=== PATIENT | female | born 1955 | race Asian ===

== ENCOUNTER 2021-04-01 09:11 | Outpatient (REF) | payer OTHER, SELFPAY ==
[2021-04-01 11:39] LABS: Estimated Average Glucose 160 mg/dL; Hemoglobin A1c % 7.2 %
[2021-04-01 12:04] LABS: Alanine Aminotransferase 23 U/L (0-31); Anion Gap 14 (12-20); Aspartate Amino Transferase 22 U/L (5-31); Blood Urea Nitrogen 22 mg/dL (9-16); Calcium 9.5 mg/dL (8.4-10.2); Carbon Dioxide 27 mmol/L (22-29); Chloride 106 mmol/L (96-108); Estimated Glomerular Filt Rate > 60; Glucose Fasting 122 mg/dL (60-99); Potassium 4.4 mmol/L (3.3-5.1); Sodium 143 mmol/L (135-145)
[2021-04-01 12:07] LABS: Creatinine Urine 89.78 mg/dL; Microalbum/Creatinine Ratio Ur 61.2 ug/mg cr
[2021-04-01 12:10] LABS: Free T4 (Free Thyroxine) 0.97 ng/dL (0.71-1.85); Thyroid Stimulating Hormone 1.17 uIU/mL (0.32-4.0); Vitamin D 25-OH Total 34.9 ng/mL (>30)
== END 2021-04-01 09:12 | disposition home or self-care (01) ==
LOC: HO.HMGCLDS 09:11
PROVIDERS: PCP Internal Medicine; Visit Provider Internal Medicine
DX: E03.9 Hypothyroidism, unspecified (principal); E11.9 Type 2 diabetes mellitus without complications; E78.5 Hyperlipidemia, unspecified; I10 Essential (primary) hypertension
CPT/HCPCS: 36415; 80048; 82043; 82306; 83036; 84439; 84443; 84450; 84460

== ENCOUNTER 2021-05-31 11:00 | Outpatient (RCR) | payer OTHER, SELFPAY ==
--- NOTE | 2021-05-06 12:47 | MHC.PT.EP ---
[facility] [place] Office [place] Office [place] Office [address] Jason Chisholm [address] [phone] F: [phone] F: [phone] F: [phone] F: [phone] Physical Therapy Plan of Care Date of Evaluation: Date of Surgery: N/A Diagnosis: pain in left shoulder Assessment: 65 y/o F referred for L shoulder pain presents with s/sx consistent with L adhesive capsulitis and ?overlapping cervical derangment. Pt complains of pain and difficulty with reaching overhead, behind the back, across the body, completing wellness instructor, sleeping, and self-care including bathing and dressing. Examination shows TTP L UT, limited L shoulder ROM in flexion, abduction, ER/IR, pain with end-range flexion, abduction, ER/IR, and hypomobility with of L GH posterior and inferior capsule. Recommend PT 2x/week for 6 weeks to address impairments, implement HEP, and optimize functional mobility. Frequency and Duration: The patient will be seen 2x/week for 6 weeks Short Term Goals: 3 weeks: 1. I with HEP 2. Pt will be able to increase L shoulder ER/IR by >8 degrees to allow for improved functional mobility Fdc Goals: 6 weeks: 1. I with HEP and self-management of sx 2. Pt will be able to complete >1 hour of wellness instructor with <3/10 pain 3. Pt will be able to complete self-care routine including bathing/dressing with <3/10 pain Treatment Plan: Modalities to reduce pain, spasms and effusion. Manual therapy to restore motion and function. Therapeutic exercise to improve strength and flexibility. Neuromuscular re-education for posture and balance. Therapeutic activities to return to functional activities of daily living. Electronically signed by: Daniela Shea PT Please sign and return to therapist. Thank you for your referral.
--- NOTE | 2021-05-31 12:41 | MHC.PT.DC ---
[facility] [place] Office [place] Office [place] Office [address] Jason Chisholm [address] [phone] F: [phone] F: [phone] F: [phone] F: [phone] Physical Therapy Discharge Report Diagnosis: pain in left shoulder Date of Surgery: N/A Date of Evaluation: 05/06/21 Date of Discharge: 05/31/21 Treatments to Date: 8 Cancellations to Date: 0 No Shows to Date: 0 Discharge Status: Achieved Goals Improved Function Independent with HEP Patient Elected to Stop Discharge Summary: Pt will be self-d/c d/t a family emergency [place] of the [place]. Today will be her last visit. Pt notes she has made improvements since starting PT in ROM and tolerance. Of note, the pt states the pain has overall decreased, but there are some days where the pain is increased. 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 She still notes trouble with dressing, specifically putting on her bra. Pt is appropriate for d/c secondary to meeting most goals including I with HEP and self-management of sx, improving ROM in flexion and ER, and improved tolerance to housework. Improved SPADI from 110/130 to 33/130. Pt notes she will continue with HEP; all exercises reviewed and d/c with updated HEP print outs. Electronically signed by: Zakia Alonzo PT Please sign and return to therapist. Thank you for your referral.
== END 2021-05-31 12:07 | disposition home or self-care (01) ==
LOC: HO.PTCHIC 11:00
PROVIDERS: PCP Internal Medicine; Visit Provider Internal Medicine
DX: M25.512 Pain in left shoulder (principal)
CPT/HCPCS: 97110; 97140; 97161

== ENCOUNTER 2021-07-10 07:49 | Outpatient (REF) | payer OTHER, SELFPAY ==
[2021-07-10 11:52] LABS: Alanine Aminotransferase 28 U/L (0-31); Anion Gap 16 (12-20); Aspartate Amino Transferase 25 U/L (5-31); Blood Urea Nitrogen 20 mg/dL (9-16); Calcium 9.6 mg/dL (8.4-10.2); Carbon Dioxide 25 mmol/L (22-29); Chloride 105 mmol/L (96-108); Cholesterol 134 mg/dL; Estimated Glomerular Filt Rate > 60; Glucose Fasting 102 mg/dL (60-99); HDL Cholesterol 34 mg/dL; LDL Cholesterol Calculated 82 mg/dl; Potassium 3.9 mmol/L (3.3-5.1); Sodium 142 mmol/L (135-145); Triglycerides 93 mg/dL
[2021-07-10 11:59] LABS: Estimated Average Glucose 160 mg/dL; Hemoglobin A1c % 7.2 %
[2021-07-10 12:12] LABS: Free T4 (Free Thyroxine) 1.13 ng/dL (0.71-1.85); Thyroid Stimulating Hormone 2.25 uIU/mL (0.32-4.0)
== END 2021-07-10 07:50 | disposition home or self-care (01) ==
LOC: HO.HMGCLDS 07:49
PROVIDERS: PCP Internal Medicine; Visit Provider Internal Medicine
DX: E03.9 Hypothyroidism, unspecified (principal); E11.65 Type 2 diabetes mellitus with hyperglycemia; E78.5 Hyperlipidemia, unspecified; I10 Essential (primary) hypertension; Z79.4 Long term (current) use of insulin
CPT/HCPCS: 36415; 80048; 80061; 83036; 84439; 84443; 84450; 84460

== ENCOUNTER 2021-10-22 10:13 | Outpatient (REF) | payer OTHER, SELFPAY ==
[2021-10-22 11:53] LABS: Estimated Average Glucose 166 mg/dL; Hemoglobin A1c % 7.4 %
[2021-10-22 12:09] LABS: Alanine Aminotransferase 20 U/L (0-31); Anion Gap 12 (12-20); Aspartate Amino Transferase 17 U/L (5-31); Blood Urea Nitrogen 17 mg/dL (9-16); Carbon Dioxide 30 mmol/L (22-29); Chloride 101 mmol/L (96-108); Cholesterol 171 mg/dL; Estimated Glomerular Filt Rate > 60; Glucose Fasting 150 mg/dL (60-99); HDL Cholesterol 47 mg/dL; LDL Cholesterol Calculated 96 mg/dl; Potassium 4.2 mmol/L (3.3-5.1); Sodium 139 mmol/L (135-145); Triglycerides 143 mg/dL
[2021-10-22 12:36] LABS: Free T4 (Free Thyroxine) 1.05 ng/dL (0.71-1.85); Thyroid Stimulating Hormone 0.94 uIU/mL (0.32-4.0); Vitamin D 25-OH Total 68.8 ng/mL (>30)
[2021-10-22 14:28] LABS: Microalbum/Creatinine Ratio Ur 142.8 ug/mg cr
== END 2021-10-22 10:14 | disposition home or self-care (01) ==
LOC: HO.HMGCLDS 10:13
PROVIDERS: PCP Internal Medicine; Visit Provider Internal Medicine
DX: E11.65 Type 2 diabetes mellitus with hyperglycemia (principal); Z79.4 Long term (current) use of insulin; I10 Essential (primary) hypertension; E78.5 Hyperlipidemia, unspecified; E03.9 Hypothyroidism, unspecified
CPT/HCPCS: 36415; 80048; 80061; 82043; 82306; 83036; 84439; 84443; 84450; 84460

== ENCOUNTER 2022-04-22 11:53 | Outpatient (REF) | payer OTHER, SELFPAY ==
[2022-04-22 14:32] LABS: Alanine Aminotransferase 24 U/L (0-31); Anion Gap 13 (12-20); Aspartate Amino Transferase 31 U/L (5-31); Blood Urea Nitrogen 22 mg/dL (9-16); Calcium 8.8 mg/dL (8.4-10.2); Carbon Dioxide 31 mmol/L (22-29); Chloride 100 mmol/L (96-108); Cholesterol 137 mg/dL; Estimated Glomerular Filt Rate > 60; Glucose Fasting 92 mg/dL (60-99); HDL Cholesterol 39 mg/dL; LDL Cholesterol Calculated 71 mg/dl; Potassium 3.4 mmol/L (3.3-5.1); Sodium 141 mmol/L (135-145); Triglycerides 139 mg/dL
[2022-04-22 14:36] LABS: Estimated Average Glucose 186 mg/dL; Hemoglobin A1c % 8.1 %
[2022-04-22 14:57] LABS: Free T4 (Free Thyroxine) 1.21 ng/dL (0.71-1.85); Vitamin D 25-OH Total 64.7 ng/mL (>30)
== END 2022-04-22 11:54 | disposition home or self-care (01) ==
LOC: HO.HMGCLDS 11:53
PROVIDERS: PCP Internal Medicine; Visit Provider Internal Medicine
DX: E03.9 Hypothyroidism, unspecified (principal); E11.65 Type 2 diabetes mellitus with hyperglycemia; E78.5 Hyperlipidemia, unspecified; I10 Essential (primary) hypertension; Z79.4 Long term (current) use of insulin
CPT/HCPCS: 36415; 80048; 80061; 82306; 83036; 84439; 84443; 84450; 84460

== ENCOUNTER 2022-04-24 09:12 | Outpatient (REF) | payer OTHER, SELFPAY ==
--- NOTE | ~2022-04-24 | XR_ITS ---
EXAMINATION: XR CHEST CLINICAL INFORMATION: Cough. History of smoking. COMPARISON: None TECHNIQUE: 2 views of the chest were obtained. FINDINGS: The lungs are well-expanded and clear. Heart size is minimally enlarged. The pulmonary vascularity is normal. There is solitary pacer electrode in the right ventricle. No gross bony abnormality seen except for mild dextroscoliosis lower dorsal spine. XR/XR chest 2V IMPRESSION: Unremarkable chest exam. No change from 07/08/2019 chest x-ray.
== END 2022-04-24 09:13 | disposition home or self-care (01) ==
LOC: HO.XRAY 09:12
PROVIDERS: PCP Internal Medicine; Visit Provider Internal Medicine
DX: R05.9 Cough, unspecified (principal)
CPT/HCPCS: 71046

== ENCOUNTER 2022-07-21 08:38 | Outpatient (REF) | payer MEDICARE, OTHER, SELFPAY ==
[2022-07-21 11:47] LABS: Alanine Aminotransferase 18 U/L (0-31); Anion Gap 16 (12-20); Aspartate Amino Transferase 18 U/L (5-31); Blood Urea Nitrogen 13 mg/dL (9-16); Calcium 9.6 mg/dL (8.4-10.2); Carbon Dioxide 28 mmol/L (22-29); Chloride 101 mmol/L (96-108); Cholesterol 158 mg/dL; Estimated Glomerular Filt Rate > 60; Glucose Fasting 134 mg/dL (60-99); HDL Cholesterol 51 mg/dL; LDL Cholesterol Calculated 94 mg/dl; Potassium 4.3 mmol/L (3.3-5.1); Sodium 141 mmol/L (135-145); Triglycerides 67 mg/dL
[2022-07-21 12:08] LABS: Estimated Average Glucose 160 mg/dL; Hemoglobin A1c % 7.2 %
[2022-07-21 12:10] LABS: Free T4 (Free Thyroxine) 0.99 ng/dL (0.71-1.85); Thyroid Stimulating Hormone 3.98 uIU/mL (0.32-4.0); Vitamin D 25-OH Total 54.9 ng/mL (>30)
[2022-07-21 12:11] LABS: Creatinine Urine 46.67 mg/dL
[2022-07-21 12:23] LABS: Microalbum/Creatinine Ratio Ur 1405.6 ug/mg cr
== END 2022-07-21 08:39 | disposition home or self-care (01) ==
LOC: HO.HMGCLDS 08:38
PROVIDERS: PCP Internal Medicine; Visit Provider Internal Medicine
DX: E03.9 Hypothyroidism, unspecified (principal); E11.65 Type 2 diabetes mellitus with hyperglycemia; E78.5 Hyperlipidemia, unspecified; I10 Essential (primary) hypertension; Z79.4 Long term (current) use of insulin
CPT/HCPCS: 36415; 80048; 80061; 82043; 82306; 83036; 84439; 84443; 84450; 84460

== ENCOUNTER 2022-10-14 09:35 | Outpatient (REF) | payer MEDICARE, OTHER, SELFPAY ==
[2022-10-14 11:58] LABS: Estimated Average Glucose 157 mg/dL; Hemoglobin A1c % 7.1 %
[2022-10-14 12:05] LABS: Creatinine Urine 40.54 mg/dL; Microalbum/Creatinine Ratio Ur 880.6 ug/mg cr
[2022-10-14 12:50] LABS: Alanine Aminotransferase 16 U/L (0-31); Anion Gap 12 (12-20); Aspartate Amino Transferase 16 U/L (5-31); Blood Urea Nitrogen 14 mg/dL (9-16); Calcium 9.2 mg/dL (8.4-10.2); Carbon Dioxide 30 mmol/L (22-29); Chloride 103 mmol/L (96-108); Cholesterol 156 mg/dL; Estimated Glomerular Filt Rate > 60; Free T4 (Free Thyroxine) 1.04 ng/dL (0.71-1.85); Glucose Fasting 90 mg/dL (60-99); HDL Cholesterol 48 mg/dL; LDL Cholesterol Calculated 90 mg/dl; Potassium 3.5 mmol/L (3.3-5.1); Sodium 141 mmol/L (135-145); Thyroid Stimulating Hormone 2.94 uIU/mL (0.32-4.0); Triglycerides 92 mg/dL; Vitamin D 25-OH Total 50.4 ng/mL (>30)
== END 2022-10-14 09:36 | disposition home or self-care (01) ==
LOC: HO.HMGCLDS 09:35
PROVIDERS: PCP Internal Medicine; Visit Provider Internal Medicine
DX: E11.65 Type 2 diabetes mellitus with hyperglycemia (principal); I10 Essential (primary) hypertension; E03.9 Hypothyroidism, unspecified; E78.5 Hyperlipidemia, unspecified; Z79.4 Long term (current) use of insulin
CPT/HCPCS: 36415; 80048; 80061; 82043; 82306; 83036; 84439; 84443; 84450; 84460

== ENCOUNTER 2023-02-27 12:06 | Outpatient (REF) | payer MEDICARE, OTHER, SELFPAY ==
[2023-02-27 14:07] LABS: Estimated Average Glucose 194 mg/dL; Hemoglobin A1c % 8.4 %
[2023-02-27 14:21] LABS: Alanine Aminotransferase 22 U/L (0-31); Albumin Level 4.3 g/dL (3.5-5.0); Alkaline Phosphatase 65 U/L (39-117); Anion Gap 11 (12-20); Aspartate Amino Transferase 16 U/L (5-31); Bilirubin Total 0.5 mg/dL (0.0-1.0); Blood Urea Nitrogen 17 mg/dL (9-16); Calcium 9.5 mg/dL (8.4-10.2); Carbon Dioxide 31 mmol/L (22-29); Chloride 105 mmol/L (96-108); Cholesterol 165 mg/dL; Estimated Glomerular Filt Rate > 60; Glucose Fasting 106 mg/dL (60-99); HDL Cholesterol 41 mg/dL; LDL Cholesterol Calculated 103 mg/dl; Potassium 4.1 mmol/L (3.3-5.1); Sodium 143 mmol/L (135-145); Total Protein 7.2 g/dL (6.5-8.0); Triglycerides 107 mg/dL
[2023-02-27 14:21] LABS: Creatinine Urine 111.44 mg/dL
[2023-02-27 14:36] LABS: Thyroid Stimulating Hormone 9.22 uIU/mL (0.32-4.0); Vitamin D 25-OH Total 63.9 ng/mL (>30)
== END 2023-02-27 12:07 | disposition home or self-care (01) ==
LOC: HO.HMGCLDS 12:06
PROVIDERS: PCP Internal Medicine; Visit Provider Internal Medicine
DX: E03.9 Hypothyroidism, unspecified (principal); E11.65 Type 2 diabetes mellitus with hyperglycemia; E78.5 Hyperlipidemia, unspecified; I10 Essential (primary) hypertension; Z79.4 Long term (current) use of insulin
CPT/HCPCS: 36415; 80053; 80061; 82043; 82306; 83036; 84443

== ENCOUNTER 2023-03-19 12:06 | Outpatient (REF) | payer MEDICARE, OTHER, SELFPAY ==
--- NOTE | ~2023-03-19 | MM_ITS ---
EXAMINATION: MM SCREENING DIGITAL BREAST TOMOSYNTHESIS, BILATERAL CLINICAL INFORMATION: Screening. Asymptomatic. The lifetime risk of breast cancer based on the Tyrer-Cuzick Model is 8%. COMPARISON: Mammography: 10/30/2018; outside exam 09/17/2016 ([facility]). TECHNIQUE: Digital breast tomosynthesis is performed in both the craniocaudal and mediolateral oblique views along with computer-aided detection (CAD). Synthesized 2D images are generated from the tomosynthesis. Additional left MLO view is provided. FINDINGS: There are scattered areas of fibroglandular density (ACR BI-RADS breast composition Category b). There are no significant masses, abnormal calcifications, or other abnormalities. There is a pacemaker generator overlying and partly obscuring the left axilla on the MLO views. No architectural abnormality or developing density. There are scattered benign isolated and grouped small round and rim calcifications. No significant changes. MM/MM tomosynthesis screening BI IMPRESSION: No mammographic evidence of malignancy. ASSESSMENT: BI-RADS 2: Benign RECOMMENDATION: Routine annual mammography screening. This patient's information was entered into a reminder system with a target due date for their next mammogram.
--- NOTE | ~2023-03-19 | MM_ITS ---
EXAMINATION: BONE DENSITOMETRY CLINICAL INDICATION: Asymptomatic menopausal state. COMPARISON: None (current study represents initial baseline exam). TECHNIQUE: Using a Teamisto DXA System (software version: 13.1) manufactured by [employer], dual-energy x-ray absorptiometry was performed of the lumbar spine and left hip. The images are of good technical quality. Summary results are attached. FINDINGS: AP SPINE L1-L4: BMD 1.336 g/cm2, Z-score 2.1, T-score 1.3, normal. LEFT FEMUR, NECK: BMD 0.822 g/cm2, Z-score -0.6, T-score -1.6, osteopenia. LEFT FEMUR, TOTAL: BMD 0.897 g/cm2, Z-score -0.2, T-score -0.9, normal. IDENTIFIED RISK FACTORS: Secondary osteoporosis, thiazide, menopause. HISTORY OF FRACTURE: None listed. MEDICATIONS: Vitamin D. MM/XR DEXA axial skeleton IMPRESSION: 1. DIAGNOSIS: Osteopenia based on the lowest T-score value of -1.6 in the femoral neck applying World Health Organization criteria. 2. 10-YEAR FRACTURE RISK PREDICTION, FRAX: Major osteoporotic fracture (clinical spine, forearm, hip or shoulder) 4.5%. Hip fracture 0.5%. 3. Treatment Recommendations: NOF guidelines recommend consideration for treatment in postmenopausal women and men age 50 and older presenting with the following: -A hip or vertebral (clinical or morphometric) fracture. -T-score less than or equal to -2.5 at the femoral neck or spine after appropriate evaluation to exclude secondary causes. -Low bone mass at the hip or spine and a 10-year fracture probability by FRAX of greater than or equal to 3% for hip fracture or greater than or equal to 20% for major osteoporotic fracture based on the [place] adapted WHO algorithm. 4. Other Recommendations: All treatment decisions require clinical judgment and consideration of individual patient factors, including patient preferences, comorbidities, previous drug use, risk factors not captured in the FRAX model (e.g. frailty, falls, vitamin D deficiency, increased bone turnover, interval significant decline in bone density) and possible under or overestimation of fracture risk by FRAX. Additional medical evaluation for secondary cause of low bone mineral density may be appropriate. FUTURE SCAN RECOMMENDATION: People with diagnosed cases of osteoporosis or at high risk for fracture should have regular bone mineral density tests. For patients eligible for Medicare, routine testing is allowed once every 2 years. The testing frequency can be increased to one year for patients who have rapidly progressing disease, those who are receiving or discontinuing medical therapy to restore bone mass, or have additional risk factors.
== END 2023-03-19 12:07 | disposition home or self-care (01) ==
LOC: HO.MAMMO 12:06
PROVIDERS: PCP Internal Medicine; Visit Provider Internal Medicine
DX: Z12.31 Encounter for screening mammogram for malignant neoplasm of breast (principal); Z13.820 Encounter for screening for osteoporosis; Z78.0 Asymptomatic menopausal state
CPT/HCPCS: 77063; 77067; 77080

== ENCOUNTER 2023-03-31 13:17 | Outpatient (REF) | payer MEDICARE, OTHER, SELFPAY ==
--- NOTE | ~2023-03-31 | XR_ITS ---
EXAMINATION: XR KNEE, RIGHT CLINICAL INFORMATION: Pain in right knee Posterior lateral knee pain COMPARISON: None available. TECHNIQUE: Four views of the right knee. FINDINGS: The bones are intact. No fracture or joint effusion. There is mild to moderate narrowing of the medial joint compartment with marginal osteophyte formation. On one of the AP oblique views, there is question of a 0.8 cm calcific density adjacent to the lateral femoral condyle. This is only seen on one view. XR/XR knee RT 4V IMPRESSION: 1. 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 2. Question of 0.8 cm calcific density adjacent to the lateral femoral condyle.
== END 2023-03-31 13:18 | disposition home or self-care (01) ==
LOC: HO.HMGCX 13:17
PROVIDERS: PCP Internal Medicine; Visit Provider Physician Assistant
DX: M25.561 Pain in right knee (principal)
CPT/HCPCS: 73564

== ENCOUNTER 2023-05-19 08:48 | Outpatient (REF) | payer MEDICARE, OTHER, SELFPAY ==
[2023-05-19 11:49] LABS: Estimated Average Glucose 160 mg/dL; Hemoglobin A1c % 7.2 %
[2023-05-19 12:24] LABS: B Type Natriuretic Peptide < 10 pg/mL (<100)
[2023-05-19 12:27] LABS: Alanine Aminotransferase 16 U/L (0-31); Anion Gap 20 (12-20); Aspartate Amino Transferase 16 U/L (5-31); Blood Urea Nitrogen 17 mg/dL (9-16); Calcium 10.1 mg/dL (8.4-10.2); Carbon Dioxide 23 mmol/L (22-29); Chloride 102 mmol/L (96-108); Cholesterol 146 mg/dL; Estimated Glomerular Filt Rate > 60; Glucose Fasting 123 mg/dL (60-99); HDL Cholesterol 39 mg/dL; LDL Cholesterol Calculated 82 mg/dl; Potassium 3.9 mmol/L (3.3-5.1); Sodium 141 mmol/L (135-145); Triglycerides 127 mg/dL
[2023-05-19 12:31] LABS: Free T4 (Free Thyroxine) 1.22 ng/dL (0.71-1.85); Thyroid Stimulating Hormone 0.16 uIU/mL (0.32-4.0)
== END 2023-05-19 08:49 | disposition home or self-care (01) ==
LOC: HO.HMGCLDS 08:48
PROVIDERS: Absent Provider Nurse Practitioner Acute Care; PCP Internal Medicine; Visit Provider Internal Medicine
DX: J45.20 Mild intermittent asthma, uncomplicated (principal); E11.65 Type 2 diabetes mellitus with hyperglycemia; Z79.4 Long term (current) use of insulin; I10 Essential (primary) hypertension; E78.5 Hyperlipidemia, unspecified; E03.9 Hypothyroidism, unspecified; I47.20 Ventricular tachycardia, unspecified; R06.02 Shortness of breath
CPT/HCPCS: 36415; 80048; 80061; 83036; 83880; 84439; 84443; 84450; 84460

== ENCOUNTER 2023-06-01 11:34 | Outpatient (AMB) | payer MEDICARE, OTHER, SELFPAY ==
[2023-06-01 11:38] VITALS: BP 132/76; PULSE 78; O2SAT 96; BMI 37.2
--- NOTE | 2023-06-01 11:38 | A.OFFPC_ITS ---
Vital Signs 06/01/23 11:38 Height 5 ft 1 in Weight 197 lb BMI 37.2 BP 132/76 Blood Pressure Location Lt brachial Position Sitting Pulse 78 Pulse Source Pulse Oximeter Pulse Oximetry (%) 96 Oxygen Delivery Method Room Air Intake Visit Reasons: 3m follow up Intake Note: Pt is here today for a 3 month f/u/ Allergies chloramphenicol Allergy (Unknown, Verified 06/01/23 12:05) rash pravastatin Allergy (Unknown, Verified 06/01/23 12:05) hives latex Allergy (Unknown, Uncoded 06/01/23 12:05) rash Medication List - Last Reconciled 06/01/23 by Dede Perkins MD albuterol sulfate 2.5 mg (3 mL) inhalation Q6H PRN albuterol sulfate 90 mcg/actuation (Ventolin HFA) 2 puffs inhalation Q6H PRN amlodipine 5 mg PO DAILY aspirin (Adult Low Dose Aspirin) 81 mg PO DAILY Basaglar KwikPen U-100 Insulin (insulin glargine) 45 units (0.45 mL) subcut QAM NS cholecalciferol (vitamin D3) 50 mcg PO DAILY empagliflozin 25 mg PO DAILY insulin aspart U-100 (Novolog FlexPen U-100 Insulin aspart) subcutaneously 3 times a day before meals ;per sliding scale coverage 90 days MDD 30 units levothyroxine 100 mcg PO QAM losartan 100 mg PO DAILY lutein 20 mg PO DAILY metformin 1,000 mg PO BID panjtzqp-hrwfbxuwu-DE 3.5-10,000-1 mg/mL-unit/mL-% 4 drps otic (ears) TID 7 days rosuvastatin 5 mg PO DAILY sotalol 120 mg PO BID spironolactone (Aldactone) 25 mg PO DAILY Symbicort 160-4.5 mcg/actuation (budesonide-formoterol) 2 puffs inhalation BID NS vitamin B complex (B Complex-Vitamin B12 tablet) 1 tab PO DAILY Tobacco use date assessed: 06/01/23 Fall risk assessment: No Falls in past year Last assessed Fall Risk: 06/01/23 Dental Screening Dental Screen Date: 06/01/23 Did you have a dental visit in the last 12 months?: Yes Did you have a dental problem in the last 6 months where you did not have access to dental care?: No Was dental information given to patient?: No HPI 3m follow up HPI Details 67-year-old lady with diabetes mellitus, hypothyroidism, hypertension, and dyslipidemia, here today for follow-up. She has been compliant with taking her medications and has been trying to stay active. Has been feeling well excep t for persistent hoarseness which has been present now for the last several months. Has tried cris tea, lozenges, which has not afforded any relief. She had recent fasting labs done which showed hemoglobin A1c within normal limits, normal electrolytes, renal function liver enzymes, lipid panel, but TSH mildly suppressed with high normal free T4. Is currently on levothyroxine 100 mcg daily in a.m. [facility] Medical History (Updated 06/01/23 @ 12:14 by Dede Perkins MD) Acquired hypothyroidism Acute exacerbation of mild persistent extrinsic asthma Asthma, mild intermittent Cough Diabetes mellitus with hyperglycemia, with long-term current use of insulin Dyslipidemia Eczema Essential hypertension Hoarseness of voice Loss of voice Otitis externa Shoulder pain, left Family History Sister Diabetes mellitus Coronary artery disease Dyslipidemia Social History Housing: House Alcohol intake: never Patient Tobacco Use Status: Never used Tobacco e-Cigarette/Vaping Use: Never Used Second Hand Smoke Exposure: No service: No Current occupational status: retired Cognitive needs: No Hearing needs: No Vision needs: Yes Questionnaire PHQ-9 Over the last 2 weeks, how often have you been bothered by any of the following problems? Depression Screening Interpretation: Negative Source: Developed by Drs. Kurt Tavares, Ben Coyne and colleagues, with an educational lili from [employer]. Thrive Questionnaire Date Thrive assessed: 03/02/23 AUDIT C Alcohol Use Questionnaire (AUDIT-C) 1. How often do you have a drink containing alcohol?: Never 3. How often do you have six or more drinks on one occasion?: Never Total Score: 0 Score Reviewed/Action Taken: Yes BRAYAN-7 AMB Questionnaire BRAYAN-7 Date BRAYAN - 7 assessed: 03/02/23 Source: Developed by Drs. Kurt Tavares, Ben Coyne and colleagues, with an educational lili from [employer]. Review of Systems Const Denies body aches, Denies fatigue, Denies headache(s), Denies malaise and Denies weakness Eyes Reports no additional complaints ENT Reports as per HPI, Denies dysphagia, Denies dizziness, Denies dry mouth, Denies ear discharge, Denies otalgia, Denies headache(s), Denies nasal congestion, Denies nasal discharge, Denies neck pain, Denies post nasal drip, Denies sinus pain, Denies sore throat and Denies throat swelling Card Reports no additional complaints, Denies dyspnea and Denies dyspnea on exertion Resp Denies chest congestion, Denies cough, Denies dyspnea and Denies dyspnea on exertion GI Reports no additional complaints and Denies dysphagia Reports no additional complaints Musc Denies arthralgias, Denies joint swelling, Denies neck pain and Reports stiffness Neuro Denies dizziness, Denies headache(s), Denies Sensory deficit (Neuro) and Denies weakness Endo Denies fatigue Micky/Lymph Reports no additional complaints Aller/Immun Denies throat swelling Physical exam (Primary Care) Vital Signs: Last Vital Signs Pulse 78 06/01/23 11:38 BP 132/76 06/01/23 11:38 Pulse Ox 96 06/01/23 11:38 Oxygen Delivery Method Room Air 06/01/23 11:38 BMI result Body Mass Index 37.2 Tobacco/Smoking Status: Tobacco use Status Tobacco use date assessed 06/01/23 06/01/23 11:43 Patient Tobacco Use Status Never used Tobacco 06/01/23 11:43 e-Cigarette/Vaping Use Never Used 06/01/23 11:43 Depression Screening Interpretation: Negative Thrive Assessment: Date of Thrive Assessment Date Thrive assessed 03/02/23 06/01/23 11:43 Const Other: Alert oriented x3, no acute distress noted ambulatory normal gait Orientation/consciousness: patient oriented x3 [facility] General nose exam: Normal external nose present and No nasal discharge present Mouth: oropharynx normal and moist mucous membranes Eyes General: appearance normal, both eyes and all related structures Neck Other: Neck is supple with no lymphadenopathy, thyroid gland nonpalpable Resp Effort & Inspection: normal respiratory effort and able to speak in complete sentences Auscultation: clear to auscultation bilaterally Cardio Other: S1-S2 present regular rate and rhythm GI Other: Obese, soft, non tender to palpation, normal bowel sounds, no mass palpated Other: Obese , normal bowel sounds, soft, nontender to palpation Skin General skin exam: no rashes or lesions noted Neuro General: patient oriented x3, gait normal, tone normal, moves all extremities, Normal light touch and pain sensation, no focal motor deficits and CN's II-XI intact bilaterally Sensory Exam: No Sensory deficit (Neuro) Extrem General: Yes full ROM, Yes no joint enlargement, Yes no pedal edema, Yes no calf tenderness and Yes normal gait Results Reviewed Results Reviewed: RUN: 06/01/23 1201 PAGE 1 [facility] [address] [place] [id number] Employment Service Specialist: Ector Murray M.D. Specimen Inquiry Name: MonicaSharmaine Barron Age/Sex: 67/F : 1955 Unit#: [id number] Attend Dr: eDde Perkins MD Re05/19/23 Status: DEP REF Location: [facility] Disch: SPEC : [id number] LASHONDA: 05/19/23 STATUS: COMP REQ : [id number] RECD: 05/19/[address]: Dede Perkins MD COMP: 05/19/23-1231 ENTERED: 05/19/23-[address]: ORDERED: Met Prof Fast, AST, ALT, Lipid Panel, Free T4, TSH Test Result Flag Reference Site Sodium 141 135-145 mmol/L Potassium 3.9 3.3-5.1 mmol/L CL 102 96-108 mmol/L CO2 23 22-29 mmol/L Gap 20 12-20 BUN 17 H 9-16 mg/dL Creat 0.76 0.5-1.4 mg/dL EGFR > 60 NOTE: For -Vincentian individuals, multiply the result by 1.210. Chronic Kidney Disease: Estimated GFR < 60 mL/min/1.73m2 Severe Kidney Disease: Estimated GFR < 15 mL/min/1.73m2 FBS 123 H 60-99 mg/dL A fasting glucose from 100-125 mg/dl is considered impaired (pre-diabetes). CA 10.1 # 8.4-10.2 mg/dL AST (GOT) 16 5-31 U/L ALT (GPT) 16 0-31 U/L Triglyceride 127 mg/dL Desirable Triglyceride: less than 150 mg/dL Borderline High Triglyceride 150-199 mg/dL High Triglyceride: 200-499 mg/dL Very High Triglyceride: greater than or equal to 5OO mg/dL Chol 146 mg/dL Desirable Cholesterol: less than 200 mg/dL Borderline High Cholesterol: 200-239 mg/dL High Cholesterol: greater than 239 mg/dL LDL Calculated 82 mg/dl Desirable LDL: less than 100 mg/dL Near Optimal/Above Optimal LDL: 110-129 mg/dL Borderline High LDL: 130-159 mg/dL High LDL: 160-189 mg/dL Very High LDL: greater than or equal to 190 mg/dL HDL 39 mg/dL Desirable HDL: greater than 40 mg/dL Note: This HDL assay may give artificially low results in patients with liver disease. Free T4 1.22 0.71-1.85 ng/dL TSH 3rd Gen. 0.16 L 0.32-4.0 uIU/mL TSH 3rd Generation ([facility]) Laboratory Tests 02/27/23 05/19/23 12:12 09:03 Estimat Average Glucose 194 160 Hemoglobin A1c % 8.4 7.2 Assessment and Plan Assessment & Plan (1) Dyslipidemia: Code(s): E78.5 - Hyperlipidemia, unspecified Plan: Reviewed recent fasting lipid profile with patient with levels within normal limits . Continue with rosuvastatin 5 mg daily , in addition to adherence to low-cholesterol diet and regular exercise, at least 30 minutes 3 to 4 times a week. Advised patient to make healthy food choices, eat more fruits, vegetables, whole grains, wild caught fish and low-fat dairy. Limit amount of meat and fried or fatty food products, as well as processed foods and fast foods. Follow-up scheduled with repeat fasting lipid panel in 3 months. (2) Essential hypertension: Code(s): I10 - Essential (primary) hypertension Plan: Blood pressure at goal of less than 130/80. Continue with current medication. Reinforced importance of following a low sodium diet, getting regular exercise, and lowering stress levels. (3) Diabetes mellitus with hyperglycemia, with long-term current use of insulin: Code(s): E11.65 - Type 2 diabetes mellitus with hyperglycemia; Z79.4 - emt intermediate (current) use of insulin Plan: Recent lab results reviewed with patient, with sugar and hemoglobin A1c stable and at goal . Continue with Basaglar 45 units in a.m., empagliflozin 25 mg daily, metformin 1000 mg twice a day. continue to check fasting blood sugar at home, maintain log and bring to next appointment for review. Reinforced diabetic diet and regular exercise with patient. Counseled regarding importance of yearly diabetes retinopathy screening. Patient advised to inspect feet daily, for any signs of injury, callus or infection. Compliance with diet and regular exercise again stressed. Blood pressure goal is less than 130/80, goal LDL is less than 100 and goal hemoglobin A1c is less than 7% follow-up appointment made in-3--months, after fasting labs done. (4) Acquired hypothyroidism: Code(s): E03.9 - Hypothyroidism, unspecified Plan: Increase levothyroxine to 88 mcg daily, recheck thyroid levels again in August 2023 (5) Hoarseness of voice: Code(s): R49.0 - Dysphonia Plan: has appointment with [facility] 08/05/2023 Orders: Orders Alanine Aminotransferase 08/19/23 E03.9 - Hypothyroidism, unspecified, E11.65 - Type 2 diabetes mellitus with hyperglycemia, E78.5 - Hyperlipidemia, unspecified, I10 - Essential (primary) hypertension, Z79.4 - emt intermediate (current) use of insulin Aspartate Amino Transferase 08/19/23 E03.9 - Hypothyroidism, unspecified, E11.65 - Type 2 diabetes mellitus with hyperglycemia, E78.5 - Hyperlipidemia, unspecified, I10 - Essential (primary) hypertension, Z79.4 - [facility] (current) use of insulin Basic Metabolic Panel Fasting 08/19/23 E03.9 - Hypothyroidism, unspecified, E11.65 - Type 2 diabetes mellitus with hyperglycemia, E78.5 - Hyperlipidemia, unspecified, I10 - Essential (primary) hypertension, Z79.4 - [facility] (current) use of insulin Hemoglobin A1c 08/19/23 E03.9 - Hypothyroidism, unspecified, E11.65 - Type 2 diabetes mellitus with hyperglycemia, E78.5 - Hyperlipidemia, unspecified, I10 - Essential (primary) hypertension, Z79.4 - emt intermediate (current) use of insulin Lipid Panel 08/19/23 E03.9 - Hypothyroidism, unspecified, E11.65 - Type 2 diabetes mellitus with hyperglycemia, E78.5 - Hyperlipidemia, unspecified, I10 - Essential (primary) hypertension, Z79.4 - [facility] (current) use of insulin Magnesium 08/19/23 E03.9 - Hypothyroidism, unspecified, E11.65 - Type 2 diabetes mellitus with hyperglycemia, E78.5 - Hyperlipidemia, unspecified, I10 - Essential (primary) hypertension, Z79.4 - [facility] (current) use of insulin Free T4 (Free Thyroxine) 08/19/23 E03.9 - Hypothyroidism, unspecified, E11.65 - Type 2 diabetes mellitus with hyperglycemia, E78.5 - Hyperlipidemia, unspecified, I10 - Essential (primary) hypertension, Z79.4 - emt intermediate (current) use of insulin Thyroid Stimulating Hormone 08/19/23 E03.9 - Hypothyroidism, unspecified, E11.65 - Type 2 diabetes mellitus with hyperglycemia, E78.5 - Hyperlipidemia, unspecified, I10 - Essential (primary) hypertension, Z79.4 - [facility] (current) use of insulin Vitamin D 25-OH Total 08/19/23 E03.9 - Hypothyroidism, unspecified, E11.65 - Type 2 diabetes mellitus with hyperglycemia, E78.5 - Hyperlipidemia, unspecified, I10 - Essential (primary) hypertension, Z79.4 - [facility] (current) use of insulin Medications: Changed From levothyroxine 100 mcg PO QAM 90 tabs 1RF To levothyroxine 88 mcg PO QAM 90 tabs 1RF Coding Level of Care Code Est Pt Level 4 (38247) Diagnoses Dyslipidemia E78.5 Essential hypertension I10 Diabetes mellitus with hyperglycemia, with long-term current use of insulin E11.65; Z79.4 Acquired hypothyroidism E03.9 Hoarseness of voice R49.0
== END 2023-06-01 14:31 | disposition home or self-care (01) ==
PROVIDERS: Visit Provider Internal Medicine
DX: I10 Essential (primary) hypertension (principal); E11.65 Type 2 diabetes mellitus with hyperglycemia; Z79.4 Long term (current) use of insulin; E03.9 Hypothyroidism, unspecified; E78.5 Hyperlipidemia, unspecified; R49.0 Dysphonia
CPT/HCPCS: 99214

== ENCOUNTER 2023-11-06 10:34 | Outpatient (REF) | payer MEDICARE, OTHER, SELFPAY ==
[2023-11-06 14:04] LABS: Estimated Average Glucose 180 mg/dL; Hemoglobin A1c % 7.9 % (<6.0)
[2023-11-06 14:25] LABS: Alanine Aminotransferase 19 U/L (0-31); Anion Gap 13 (12-20); Aspartate Amino Transferase 17 U/L (5-31); Blood Urea Nitrogen 19 mg/dL (9-16); Calcium 10.1 mg/dL (8.4-10.2); Carbon Dioxide 27 mmol/L (22-29); Chloride 106 mmol/L (96-108); Cholesterol 194 mg/dL (<200); Estimated Glomerular Filt Rate > 60; Glucose Fasting 79 mg/dL (60-99); HDL Cholesterol 47 mg/dL (>40); LDL Cholesterol Calculated 121 mg/dL (<100); Magnesium 2.2 mg/dL (1.6-2.6); Sodium 142 mmol/L (135-145); Triglycerides 134 mg/dL (<150)
[2023-11-06 14:45] LABS: Thyroid Stimulating Hormone 3.42 uIU/mL (0.32-4.0); Vitamin D 25-OH Total 70.9 ng/mL (>30)
== END 2023-11-06 10:35 | disposition home or self-care (01) ==
LOC: HO.HMGCLDS 10:34
PROVIDERS: PCP Internal Medicine; Visit Provider Internal Medicine
DX: E78.5 Hyperlipidemia, unspecified (principal); I10 Essential (primary) hypertension; E11.65 Type 2 diabetes mellitus with hyperglycemia; E03.9 Hypothyroidism, unspecified; Z79.4 Long term (current) use of insulin
CPT/HCPCS: 36415; 80048; 80061; 82306; 83036; 83735; 84439; 84443; 84450; 84460

== ENCOUNTER 2023-11-17 13:28 | Outpatient (AMB) | payer MEDICARE, OTHER, SELFPAY ==
[2023-11-17 14:17] VITALS: BP 118/70; PULSE 70; O2SAT 95; BMI 37.0
--- NOTE | 2023-11-17 14:17 | MHC.PC.OV ---
Vital Signs 11/17/23 14:17 Height 5 ft 1 in Weight 196 lb BMI 37.0 BP 118/70 Blood Pressure Location Rt brachial Position Sitting Pulse 70 Pulse Source Pulse Oximeter Pulse Oximetry (%) 95 Oxygen Delivery Method Room Air Intake Visit Reasons: 3mo. f/u labs Intake Note: Pt is here today for her 3 mo. f/u labs Allergies chloramphenicol Allergy (Unknown, Verified 11/17/23 14:43) rash pravastatin Allergy (Unknown, Verified 11/17/23 14:43) hives ciprofloxacin Adverse Reaction (Verified 11/17/23 14:43) burning sensation in ears latex Allergy (Unknown, Uncoded 11/17/23 14:43) rash Medication List - Last Reconciled 11/17/23 by Dede Perkins MD Admelog SoloStar U-100 Insulin (insulin lispro) 15 units (0.15 mL) subcut BID NS Advair HFA 115-21 mcg/actuation (fluticasone propion-salmeterol) 2 puffs inhalation Q12H NS albuterol sulfate 2.5 mg (3 mL) inhalation Q6H PRN albuterol sulfate 90 mcg/actuation (Ventolin HFA) 2 puffs inhalation Q6H PRN amlodipine 5 mg PO DAILY aspirin (Adult Low Dose Aspirin) 81 mg PO DAILY Basaglar KwikPen U-100 Insulin (insulin glargine) 45 units (0.45 mL) subcut QAM NS cholecalciferol (vitamin D3) 50 mcg PO DAILY empagliflozin 25 mg PO DAILY levothyroxine 88 mcg PO QAM losartan 100 mg PO DAILY lutein 20 mg PO DAILY metformin 1,000 mg PO BID rosuvastatin 10 mg PO DAILY sotalol 120 mg PO BID spironolactone (Aldactone) 25 mg PO DAILY vitamin B complex (B Complex-Vitamin B12 tablet) 1 tab PO DAILY Tobacco use date assessed: 11/17/23 Fall risk assessment: No Falls in past year Last assessed Fall Risk: 11/17/23 Dental Screening Dental Screen Date: 11/17/23 Did you have a dental visit in the last 12 months?: Yes Did you have a dental problem in the last 6 months where you did not have access to dental care?: Yes Was dental information given to patient?: Patient has dentist HPI 3mo. f/u labs HPI Details 68-year-old lady with diabetes mellitus, dyslipidemia, hypertension and hypothyroidism, here today for her follow-up. She has been compliant with taking medications, but not so much with diet and no regular exercise at all. Latest hemoglobin A1c came back at 7.9%, LDL cholesterol is elevated at 121 mg/dL. Thyroid levels are within normal limits. Complaining of pain stiffness in her right knee, worse with walking and going up stairs. Takes Tylenol arthritis and ibuprofen which affords only temporary relief. Has an incidental finding of an ill-defined nodule in the right apex of lung measuring 1.[address] scan of chest with contrast ordered by her ENT. Patient denies any history of smoking, no abnormal weight loss, no shortness of breath, cough or wheezing . [facility] Medical History (Updated 11/18/23 @ 03:07 by Dede Perkins MD) Nodule of apex of right lung Osteoarthritis of right knee Loss of voice Acute exacerbation of mild persistent extrinsic asthma Asthma, mild intermittent Cough Eczema Otitis externa Shoulder pain, left Diabetes mellitus with hyperglycemia, with long-term current use of insulin Essential hypertension Dyslipidemia Acquired hypothyroidism Family History Sister Diabetes mellitus Coronary artery disease Dyslipidemia Social History Housing: House Alcohol intake: never Patient Tobacco Use Status: Never used Tobacco e-Cigarette/Vaping Use: Never Used Second Hand Smoke Exposure: No service: No Current occupational status: retired Cognitive needs: No Hearing needs: No Vision needs: Yes Questionnaire PHQ-9 Over the last 2 weeks, how often have you been bothered by any of the following problems? 1. Little interest or pleasure in doing things: not at all 2. Feeling down, depressed, or hopeless: not at all 3. Trouble falling or staying asleep, or sleeping too much: several days 4. Feeling tired or having little energy: several days 5. Poor appetite or overeating: not at all 6. Feeling bad about yourself - or that you are a failure or have let yourself or your family down: not at all 7. Trouble concentrating on things, such as reading the newspaper or watching television: not at all 8. Moving or speaking so slowly that other people could have noticed. Or the opposite - being so fidgety or restless that you have been moving around a lot more than usual: not at all 9. Thoughts that you would be better off or of hurting yourself in some way: not at all Total score: 2 Depression Screening Interpretation: Negative Depression Screening Done: Yes 00676 - PHQ-9 Billing: Yes Source: Developed by Drs. Kurt Tavares, Gissel Maravilla, Ben Cheung and colleagues, with an educational lili from [employer]. Thrive Questionnaire Date Thrive assessed: 11/17/23 I am a: Patient What is your living situation today?: I have a steady place to live Within the past 12 months, did the food you bought not last and you didn't have the money to get more?: Never true Within the past 12 months, did you worry whether your food would run out before you got money to buy more?: Never true Do you have trouble paying for medicines?: No Do you have trouble getting transportation to medical appointments?: No Do you have trouble paying your heating and electricity bill?: No Do you have trouble taking care of your child, family member or friend?: No Do you have trouble with day-to-day activities such as bathing, preparing meals, shopping, managing finances, etc.?: No Are you currently unemployed and looking for a job?: No Are you interested in more education?: No THRIVE Score: 0 AUDIT C Alcohol Use Questionnaire (AUDIT-C) 1. How often do you have a drink containing alcohol?: Never Total Score: 0 BRAYAN-7 AMB Questionnaire BRAYAN-7 Date BRAYAN - 7 assessed: 11/17/23 Feeling nervous, anxious, or on edge: 0 = Not at all Not being able to stop or control worryin = Not at all Worrying too much about different things: 0 = Not at all Trouble relaxin = Not at all Being so restless that it is hard to sit still: 0 = Not at all Becoming easily annoyed or irritable: 0 = Not at all Feeling afraid as if something awful might happen: 0 = Not at all Total BRAYAN-7 score (0-4 normal; 5-9 mild; 10-14 moderate; 15-21 severe): 0 Source: Developed by Drs. Kurt Tavares, Gissel Maravilla, Ben Cheung and colleagues, with an educational lili from [employer]. BRAYAN-7 Assessment Billing BRAYAN-7 Assessment Tool: BRAYAN-7 Assessment 67104 Review of Systems Const Denies body aches, Denies fatigue, Denies headache(s), Denies malaise and Denies weakness Eyes Reports no additional complaints ENT Denies dizziness, Denies dry mouth, Denies ear discharge, Denies headache(s) and Denies nasal congestion Card Denies dyspnea Resp Denies chest congestion, Denies cough and Denies dyspnea GI Reports no additional complaints Reports no additional complaints Musc Denies joint swelling and Reports stiffness Neuro Denies dizziness, Denies headache(s), Denies Sensory deficit (Neuro) and Denies weakness Psych Reports no additional complaints Endo Denies fatigue Micky/Lymph Reports no additional complaints Aller/Immun Reports no additional complaints Physical exam (Primary Care) Vital Signs: Last Vital Signs Pulse 70 11/17/23 14:17 BP 118/70 11/17/23 14:17 Pulse Ox 95 11/17/23 14:17 Oxygen Delivery Method Room Air 11/17/23 14:17 BMI result Body Mass Index 37.0 Tobacco/Smoking Status: Tobacco use Status Tobacco use date assessed 11/17/23 11/17/23 14:28 Patient Tobacco Use Status Never used Tobacco 11/17/23 14:19 e-Cigarette/Vaping Use Never Used 11/17/23 14:19 PHQ-9: PHQ-9 Score PHQ-9: Total score 2 11/17/23 22:01 Depression Screening Interpretation: Negative Thrive Assessment: Date of Thrive Assessment Date Thrive assessed 11/17/23 11/17/23 15:09 Const Other: Alert oriented x3, no acute distress noted ambulatory normal gait General: no acute distress, alert and Physically active Orientation/consciousness: patient oriented x3 [facility] General nose exam: Normal external nose present and No nasal discharge present Mouth: oropharynx normal and moist mucous membranes Eyes General: appearance normal, both eyes and all related structures Neck Other: Neck is supple with no lymphadenopathy, thyroid gland nonpalpable Resp Effort & Inspection: normal respiratory effort and able to speak in complete sentences Auscultation: clear to auscultation bilaterally Cardio Other: S1-S2 present regular rate and rhythm GI Other: Obese, soft, non tender to palpation, normal bowel sounds, no mass palpated Other: Obese , normal bowel sounds, soft, nontender to palpation Skin General skin exam: no rashes or lesions noted Neuro General: patient oriented x3, gait normal, tone normal, moves all extremities, Normal light touch and pain sensation, no focal motor deficits and CN's II-XI intact bilaterally Sensory Exam: No Sensory deficit (Neuro) Extrem General: Yes full ROM, Yes no pedal edema and Yes normal gait Right lower extremity: knee Details: tenderness Location: of the patella Psych Appearance: grossly normal Mental Status: mental status grossly normal Speech and movement: Normal speech and movement present Affect: normal affect Attitude: cooperative Thought process: Normal thought process present Thought content: Normal thought content present Results Reviewed Results Reviewed: wale: Victoria Anderson Age/Sex: 68/F : 1955 Unit#: [id number] Attend Dr: Dede Perkins MD Re11/06/23 Status: DEP [facility]: SPEC : [id number] LASHONDA: 11/06/23 STATUS: COMP REQ : [id number] RECD: 11/06/[address]: Dede Perkins MD COMP: 11/06/23 ENTERED: 11/06/23-[address] [facility] [address]: ORDERED: Met Prof Fast, MG, AST, ALT, Lipid Panel, Vitamin D 25-OH, Free T4, TSH Test Result Flag Reference Sodium 142 135-145 mmol/L Potassium 4.0 3.3-5.1 mmol/L CL 106 96-108 mmol/L CO2 27 22-29 mmol/L Gap 13 12-20 BUN 19 H 9-16 mg/dL Creat 0.85 0.5-1.4 mg/dL EGFR > 60 NOTE: For -Israeli individuals, multiply the result by 1.210. Chronic Kidney Disease: Estimated GFR < 60 mL/min/1.73m2 Severe Kidney Disease: Estimated GFR < 15 mL/min/1.73m2 FBS 79 60-99 mg/dL CA 10.1 8.4-10.2 mg/dL Magnesium 2.2 1.6-2.6 mg/dL AST (GOT) 17 5-31 U/L ALT (GPT) 19 0-31 U/L Triglyceride 134 <150 mg/dL Desirable Triglyceride: less than 150 mg/dL Borderline High Triglyceride 150-199 mg/dL High Triglyceride: 200-499 mg/dL Very High Triglyceride: greater than or equal to 5OO mg/dL Cholesterol 194 <200 mg/dL Desirable Cholesterol: less than 200 mg/dL Borderline High Cholesterol: 200-239 mg/dL High Cholesterol: greater than 239 mg/dL LDL Calculated 121 H <100 mg/dL Desirable LDL: less than 100 mg/dL Near Optimal/Above Optimal LDL: 110-129 mg/dL Borderline High LDL: 130-159 mg/dL High LDL: 160-189 mg/dL Very High LDL: greater than or equal to 190 mg/dL HDL 47 >40 mg/dL Desirable HDL: greater than 40 mg/dL Note: This HDL assay may give artificially low results in patients with liver disease. Vit D 25-OH Tot 70.9 >30 ng/mL Health Based Reference Values* < 20 ng/mL Deficient 20-30 ng/mL Insufficient > 30 ng/mL Sufficient *Genet MCCRACKEN. N Engl J Med. 2007;357:266-280 Care must be taken in interpreting Vitamin D results from different laboratories and methodologies. Published data demonstrated that results from patients undergoing hemodialysis may show a negative bias when tested with various automated 25-OH vitamin D assays when compared to LC-MS/MS. When testing samples from patients whose predominant form of Vitamin D is Vitamin D2, such as patients receiving Vitamin D2 supplementation, results that are subtherapeutic should be confirmed with another method such as LC-MS/MS. Free T4 0.90 0.71-1.85 ng/dL TSH 3rd Gen. 3.42 0.32-4.0 uIU/mL Note: A sustained TSH level above 2.5 uIU/mL may warrant further investigation. 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 Continue present treatment, continue to check fasting blood sugar at home, maintain log and bring to next appointment for review. Reinforced diabetic diet and regular exercise with patient. Counseled regarding importance of yearly diabetes retinopathy screening. Patient advised to inspect feet daily, for any signs of injury, callus or infection. Compliance with diet and regular exercise again stressed. Blood pressure goal is less than 130/80, goal LDL is less than 100 and goal hemoglobin A1c is less than 7% follow-up appointment made in--3-months, after fasting labs done. NovoLog switched to Admelog due to insurance coverage. (2) Dyslipidemia: Code(s): E78.5 - Hyperlipidemia, unspecified Plan: Reviewed recent fasting lipid profile with patient with elevated LDL cholesterol . Increased rosuvastatin dose to 10 mg daily, in addition to adherence to low-cholesterol diet and regular exercise, at least 30 minutes 3 to 4 times a week. Advised patient to make healthy food choices, eat more fruits, vegetables, whole grains, wild caught fish and low-fat dairy. Limit amount of meat and fried or fatty food products, as well as processed foods and fast foods. Follow-up scheduled with repeat fasting lipid panel in 3 months. (3) Acquired hypothyroidism: Code(s): E03.9 - Hypothyroidism, unspecified Plan: Continue levothyroxine 88 mcg daily in a.m., repeat TSH and free T4 February 2024 prior to next office visit (4) Essential hypertension: Code(s): I10 - Essential (primary) hypertension Plan: Blood pressure at goal of less than 130/80. Continue with current medication. Reinforced importance of following a low sodium diet, getting regular exercise, and lowering stress levels. (5) Osteoarthritis of right knee: Code(s): M17.11 - Unilateral primary osteoarthritis, right knee Plan: No improvement with conservative measures, referred to orthopedics per patient request to go to (6) Nodule of apex of right lung: Code(s): R91.1 - Solitary pulmonary nodule Plan: Pulmonary consult requested (7) Asthma, mild intermittent: Code(s): J45.20 - Mild intermittent asthma, uncomplicated Plan: Symbicort changed to Advair due to insurance coverage Orders: Orders Hemoglobin A1c 02/17/24 E03.9 - Hypothyroidism, unspecified, E11.65 - Type 2 diabetes mellitus with hyperglycemia, E78.5 - Hyperlipidemia, unspecified, I10 - Essential (primary) hypertension, Z79.4 - terminal system operator (current) use of insulin Lipid Panel 02/17/24 E03.9 - Hypothyroidism, unspecified, E11.65 - Type 2 diabetes mellitus with hyperglycemia, E78.5 - Hyperlipidemia, unspecified, I10 - Essential (primary) hypertension, Z79.4 - shelter (current) use of insulin Basic Metabolic Panel Fasting 02/17/24 E03.9 - Hypothyroidism, unspecified, E11.65 - Type 2 diabetes mellitus with hyperglycemia, E78.5 - Hyperlipidemia, unspecified, I10 - Essential (primary) hypertension, Z79.4 - shelter (current) use of insulin Aspartate Amino Transferase 02/17/24 E03.9 - Hypothyroidism, unspecified, E11.65 - Type 2 diabetes mellitus with hyperglycemia, E78.5 - Hyperlipidemia, unspecified, I10 - Essential (primary) hypertension, Z79.4 - terminal system operator (current) 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 of insulin Free T4 (Free Thyroxine) 02/17/24 E03.9 - Hypothyroidism, unspecified, E11.65 - Type 2 diabetes mellitus with hyperglycemia, E78.5 - Hyperlipidemia, unspecified, I10 - Essential (primary) hypertension, Z79.4 - shelter (current) use of insulin Microalbumin, Random (w Creat) 02/17/24 E03.9 - Hypothyroidism, unspecified, E11.65 - Type 2 diabetes mellitus with hyperglycemia, E78.5 - Hyperlipidemia, unspecified, I10 - Essential (primary) hypertension, Z79.4 - terminal system operator (current) use of insulin Alanine Aminotransferase 02/17/24 E03.9 - Hypothyroidism, unspecified, E11.65 - Type 2 diabetes mellitus with hyperglycemia, E78.5 - Hyperlipidemia, unspecified, I10 - Essential (primary) hypertension, Z79.4 - shelter (current) use of insulin Thyroid Stimulating Hormone 02/17/24 E03.9 - Hypothyroidism, unspecified, E11.65 - Type 2 diabetes mellitus with hyperglycemia, E78.5 - Hyperlipidemia, unspecified, I10 - Essential (primary) hypertension, Z79.4 - shelter (current) use of insulin Referrals Orthopedics Referral M17.11 - Unilateral primary osteoarthritis, right knee Pulmonary Medicine Referral R91.1 - Solitary pulmonary nodule Medications: New Admelog SoloStar U-100 Insulin (insulin lispro) 15 units (0.15 mL) subcut BID 15 mL 5RF NS Advair HFA 115-21 mcg/actuation (fluticasone propion-salmeterol) 2 puffs inhalation Q12H 12 grams 5RF NS Changed From rosuvastatin 5 mg PO DAILY 90 tabs 3RF To rosuvastatin 10 mg PO DAILY 90 tabs 3RF Refilled amlodipine 5 mg PO DAILY 90 tabs 1RF Discontinued Symbicort 160-4.5 mcg/actuation (budesonide-formoterol) Discontinued Reason: Insurance Denied 2 puffs inhalation BID 10.2 grams 3RF NS Novolog FlexPen U-100 Insulin (insulin aspart U-100) Discontinued Reason: Insurance Denied subcutaneously 3 times a day before meals ;per sliding scale coverage 90 days 30 mL 4RF MDD 30 units NS E11.65 - Type 2 diabetes mellitus with hyperglycemia, Z79.4 - terminal system operator (current) use of insulin Coding Level of Care Code Est Pt Level 4 (60019) Diagnoses Diabetes mellitus with hyperglycemia, with long-term current use of insulin E11.65; Z79.4 Dyslipidemia E78.5 Acquired hypothyroidism E03.9 Essential hypertension I10 Osteoarthritis of right knee M17.11 Nodule of apex of right lung R91.1 Asthma, mild intermittent J45.20 Additional Codes BRAYAN-7 Assessment Billing - BRAYAN-7 Assessment Tool: BRAYAN-7 Assessment 85966 ([id number])
== END 2023-11-17 15:09 | disposition home or self-care (01) ==
PROVIDERS: PCP Internal Medicine; Visit Provider Internal Medicine
DX: E11.65 Type 2 diabetes mellitus with hyperglycemia (principal); Z79.4 Long term (current) use of insulin; E78.5 Hyperlipidemia, unspecified; E03.9 Hypothyroidism, unspecified; I10 Essential (primary) hypertension; M17.11 Unilateral primary osteoarthritis, right knee; R91.1 Solitary pulmonary nodule; J45.20 Mild intermittent asthma, uncomplicated
CPT/HCPCS: 99214

== ENCOUNTER 2023-11-26 07:28 | Outpatient (REF) | payer MEDICARE, OTHER, SELFPAY ==
--- NOTE | ~2023-11-26 | XR_ITS ---
EXAMINATION: XR KNEE, RIGHT XR KNEE AP STANDING CLINICAL INFORMATION: Pain. COMPARISON: Radiographs dated 03/31/2023. TECHNIQUE: Lateral and axial views of the right knee are submitted. AP bilateral standing view of the knees was obtained. FINDINGS: Bony mineralization is normal. There is moderate narrowing of the medial joint space compartment of the right knee, and mild narrowing is seen of the lateral and patellofemoral compartments. There is tricompartment peripheral osteophyte formation. No fracture or dislocation is seen. There is a moderate joint effusion. No foreign body is seen. There is very mild narrowing of the lateral and medial joint space compartments of the left knee, with peripheral osteophyte formation. No significant varus or valgus configuration is seen bilaterally. XR/XR knee RT 2V IMPRESSION: 1. There is tricompartment osteoarthritic change of the right knee, most pronounced of the medial joint space compartment, where degenerative change is moderate. 2. There is a moderate right knee joint effusion. 3. There is mild osteoarthritic change of the lateral and medial joint space compartments of the left knee. 4. No significant varus or valgus configuration is seen bilaterally.
--- NOTE | ~2023-11-26 | XR_ITS ---
EXAMINATION: XR KNEE, RIGHT XR KNEE AP STANDING CLINICAL INFORMATION: Pain. COMPARISON: Radiographs dated 03/31/2023. TECHNIQUE: Lateral and axial views of the right knee are submitted. AP bilateral standing view of the knees was obtained. FINDINGS: Bony mineralization is normal. There is moderate narrowing of the medial joint space compartment of the right knee, and mild narrowing is seen of the lateral and patellofemoral compartments. There is tricompartment peripheral osteophyte formation. No fracture or dislocation is seen. There is a moderate joint effusion. No foreign body is seen. There is very mild narrowing of the lateral and medial joint space compartments of the left knee, with peripheral osteophyte formation. No significant varus or valgus configuration is seen bilaterally. XR/XR knee standing BI IMPRESSION: 1. There is tricompartment osteoarthritic change of the right knee, most pronounced of the medial joint space compartment, where degenerative change is moderate. 2. There is a moderate right knee joint effusion. 3. There is mild osteoarthritic change of the lateral and medial joint space compartments of the left knee. 4. No significant varus or valgus configuration is seen bilaterally.
== END 2023-11-26 07:29 | disposition home or self-care (01) ==
LOC: HO.HOSX 07:28
PROVIDERS: Visit Provider Orthopaedic Surgery
DX: M17.11 Unilateral primary osteoarthritis, right knee (principal); E11.65 Type 2 diabetes mellitus with hyperglycemia; Z79.4 Long term (current) use of insulin
CPT/HCPCS: 20610; 73560; 73565; 99202; J0665; J1100

== ENCOUNTER 2023-11-26 12:52 | Outpatient (AMB) | payer MEDICARE, OTHER, SELFPAY ==
--- NOTE | 2023-11-26 13:01 | A.OFFVIS_ITS ---
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 Patient reports that she has had increased pain in the right knee since about March. Her pain was originally felt in the posterior aspect of the knee and has moved to the medial aspect of the knee. She has painful and limits her ROM, increased pain with all acitivity. She has used an over the counter brace with no releif. Allergies chloramphenicol Allergy (Unknown, Verified 11/26/23 13:05) rash pravastatin Allergy (Unknown, Verified 11/26/23 13:05) hives ciprofloxacin Adverse Reaction (Verified 11/26/23 13:05) burning sensation in ears latex Allergy (Unknown, Uncoded 11/26/23 13:05) rash HPI rules examiner- RT Knee OA HPI Details Victoria is a 68 year old woman who presents with complaints of right knee OA pain. She complains of pain with daily activity and motion. Her pain has been present for ~8 months now, and is now felt in the medial aspect of her knee. She feels limited in her ADLs due to her pain. [facility], [facility] Medical History (Updated 11/26/23 @ 13:08 by Tasha Puri CMA) Cataract (lens) fragments in eye following cataract surgery, bilateral Nodule of apex of right lung Osteoarthritis of right knee Loss of voice Acute exacerbation of mild persistent extrinsic asthma Asthma, mild intermittent Cough Eczema Otitis externa Shoulder pain, left Diabetes mellitus with hyperglycemia, with long-term current use of insulin Essential hypertension Dyslipidemia Acquired hypothyroidism Surgical History (Updated 11/26/23 @ 13:08 by Tasha Puri CMA) History of carpal tunnel release History of lumpectomy of left breast H/O tubal ligation H/O thyroidectomy Family History Sister Diabetes mellitus Coronary artery disease Dyslipidemia Social History Housing: House Alcohol intake: never Patient Tobacco Use Status: Never used Tobacco e-Cigarette/Vaping Use: Never Used Second Hand Smoke Exposure: No service: No Current occupational status: retired Cognitive needs: No Hearing needs: No Vision needs: Yes Review of Systems Const All systems reviewed & are unremarkable except as noted in HPI and below Physical Exam Vital Signs: BMI result Body Mass Index 37.0 Const General: no acute distress, alert and awake Orientation/consciousness: patient oriented x3 HEENT Head: Yes normocephalic and Yes atraumatic Eyes EOM: EOMs intact bilaterally Resp Effort & Inspection: normal respiratory effort and able to speak in complete sentences Cardio Jugular venous distension: no JVD Skin General skin exam: turgor normal Rashes: no rashes Neuro General: patient oriented x3 Psych Appearance: grossly normal Affect: normal affect Attitude: cooperative Office Procedures Joint Injection/Drain Joint Injection/Drain Details: Injected 1 mL of Decadron and 3 mL 1% lidocaine and 3 mL of 0.25% Marcaine. Site was prepped using aseptic technique. Patient tolerated the procedure well. Primary Site: right knee Approach Used: anterolateral Coding 97472 - Large joint Procedure code (CPT) selection complete Results Reviewed Results Reviewed: I personally reviewed relevant radiographs. 1. There is tricompartment osteoarthritic change of the right knee, most pronounced of the medial joint space compartment, where degenerative change is moderate. 2. There is a moderate right knee joint effusion. 3. There is mild osteoarthritic change of the lateral and medial joint space compartments of the left knee. 4. No significant varus or valgus configuration is seen bilaterally. Assessment & Plan Assessment & Plan (1) Osteoarthritis of right knee: Code(s): M17.11 - Unilateral primary osteoarthritis, right knee Plan: Right knee OA. Pain tolerable but bothers her. Pain at night. Injected her right knee today and she can follow up 3 mo. (2) Diabetes mellitus with hyperglycemia, with long-term current use of insulin: Code(s): E11.65 - Type 2 diabetes mellitus with hyperglycemia; Z79.4 - longterm (current) use of insulin Plan: Explained the hyperglycemic effects of steroids. Plan Prepared for Mohit Burleson MD by Bryan Yousif, medical instructor, on 11/26/23 at 1:03 PM, EST. Orders: Orders XR knee standing BI 11/26/23 M25.569 - Pain in unspecified knee XR knee RT 2V 11/26/23 M25.569 - Pain in unspecified knee Coding Level of Care Code New Pt Level 4 (74354) Diagnoses Osteoarthritis of right knee M17.11 Diabetes mellitus with hyperglycemia, with long-term current use of insulin E11.65; Z79.4 CPT Codes Coding - 13747 Large joint: 08713 - Large joint ([id number])
[2023-11-26 13:08] VITALS: BMI 37.0
== END 2023-11-26 14:08 | disposition home or self-care (01) ==
PROVIDERS: PCP Internal Medicine; Visit Provider Orthopaedic Surgery
DX: M17.11 Unilateral primary osteoarthritis, right knee (principal); E11.65 Type 2 diabetes mellitus with hyperglycemia; Z79.4 Long term (current) use of insulin
CPT/HCPCS: 20610; 99204

== ENCOUNTER 2023-12-24 13:08 | Outpatient (REF) | payer MEDICARE, OTHER, SELFPAY ==
[2023-12-24 14:17] LABS: MANUAL DIFF FLAG NO
[2023-12-24 14:27] LABS: Basophils Absolute Auto 0.1 X10*3/uL (0.0-0.2); Basophils Percent Auto 1.1 % (0-2); Eosinophils Absolute Auto 0.2 X10*3/uL (0.0-0.4); Eosinophils Percent Auto 3.3 % (0-4); Hematocrit 44.2 % (37.0-47.0); Imm Gran Abs Auto 0.02 X10*3/uL (0.00-0.03); Imm Gran Pct Auto 0.3 % (0.0-0.4); Lymphocytes Absolute Auto 2.1 X10*3/uL (1.2-4.9); Mean Corpuscular HGB Conc 33.9 g/dl (31.0-35.0); Mean Corpuscular Hemoglobin 31.6 pg (27.0-33.0); Mean Corpuscular Volume 93.2 fL (80.0-98.0); Monocytes Absolute Auto 0.4 X10*3/uL (0.1-1.2); Monocytes Percent Auto 6.5 % (2-11); Neutrophils Absolute Auto 3.3 x10*3/uL (2.0-8.3); Neutrophils Percent Auto 53.8 % (45-73); Platelet Count 245 X10*3/uL (160-400); Red Blood Count 4.74 X10*6/uL (4.20-5.50); Red Cell Distribution Width 12.5 % (11.0-16.0); White Blood Count 6.1 X10*3/uL (4.8-10.8)
[2023-12-26 10:49] LABS: Class Alternaria alternata 0; Class Aspergillus fumigatus 0; Class Bermuda Grass 0; Class Birch 0; Class Cat Dander 0; Class Cladosporium herbarum 0; Class Cockroach 0; Class Common Ragweed 0; Class Cottonwood 0; Class Derm. pterony 0; Class Dermatophagoides farinae 0; Class Dog Dander 0; Class Elm 0; Class Maple Box Elder 0; Class Mountain Cedar 0; Class Mouse Urine Protein 0; Class Mugwort 0; Class Oak 0; Class Penicillium crysogenum 0; Class Rough Pigweed 0; Class Sheep Sorrel 0; Class Sycamore 0; Class Timothy Grass 0; Class Walnut Tree 0; Class White Ash 0; Class White Mulberry 0; D001 IgE D pteronyssinus <0.10 kU/L; D002 - IgE D farinae <0.10 kU/L; E001 - IgE Cat Dander <0.10 kU/L; E005 - IgE Dog Dander <0.10 kU/L; E072-IgE Mouse Urine <0.10 kU/L; G002 IgE Bermuda Grass <0.10 kU/L; G006 - IgE Timothy Grass <0.10 kU/L; I006-IgE Cockroach, German <0.10 kU/L; Immunoglobulin E 44 kU/L (<OR=114); M001 IgE Penicillium chrysogen <0.10 kU/L; M002 - IgE Cladosporium herbar <0.10 kU/L; M003 - IgE Aspergillus fumigat <0.10 kU/L; M006 - IgE Alternaria alternat <0.10 kU/L; T001 IgE Maple/Box Elder <0.10 kU/L; T003 IgE Common Silver Birch <0.10 kU/L; T006 - IgE Cedar, Mountain <0.10 kU/L; T007 - IgE Oak, White <0.10 kU/L; T008 IgE Elm, American <0.10 kU/L; T010 - IgE Walnut <0.10 kU/L; T011 - IgE Maple Leaf Sycamore <0.10 kU/L; T014 - IgE Cottonwood <0.10 kU/L; T015 - IgE Ash, White <0.10 kU/L; T070 - IgE White Mulberry <0.10 kU/L; W001 - IgE Ragweed, Short <0.10 kU/L; W006 - IgE Mugwort <0.10 kU/L; W014 IgE Pigweed, Common <0.10 kU/L; W018 IgE Sheep Sorrel <0.10 kU/L
== END 2023-12-24 13:09 | disposition home or self-care (01) ==
LOC: HO.LAB 13:08
PROVIDERS: PCP Internal Medicine; Referring Provider Internal Medicine; Visit Provider Internal Medicine Pulmonary Disease
DX: R91.1 Solitary pulmonary nodule (principal); J45.909 Unspecified asthma, uncomplicated; Z91.09 Other allergy status, other than to drugs and biological substances; Z79.4 Long term (current) use of insulin; Z79.899 Other long term (current) drug therapy
CPT/HCPCS: 36415; 82785; 85025; 86003; 99202

== ENCOUNTER 2023-12-24 13:08 | Outpatient (AMB) | payer MEDICARE, OTHER, SELFPAY ==
--- NOTE | 2023-12-24 13:15 | A.OFFVIS_ITS ---
Intake Vital Signs 12/24/23 13:17 Height 5 ft 5 in Weight 196 lb BMI 32.6 BP 136/70 Blood Pressure Location Lt brachial Position Sitting Pulse 74 Pulse Source Pulse Oximeter Pulse Oximetry (%) 98 Oxygen Delivery Method Room Air Intake Visit Reasons: pulm nodule Certified Nutritionist Required: No [employer] Counselor: [employer] Travel [employer] Counselor offered & declined Accompanied by: Self / Same As Patient Allergies chloramphenicol Allergy (Unknown, Verified 12/24/23 13:21) rash pravastatin Allergy (Unknown, Verified 12/24/23 13:21) hives ciprofloxacin Adverse Reaction (Verified 12/24/23 13:21) burning sensation in ears latex Allergy (Unknown, Uncoded 12/24/23 13:21) rash Medication List - Last Reconciled 12/24/23 by Trini Willson LPN Admelog SoloStar U-100 Insulin (insulin lispro) 15 units (0.15 mL) subcut BID NS Advair HFA 115-21 mcg/actuation (fluticasone propion-salmeterol) 2 puffs inhalation Q12H NS albuterol sulfate 2.5 mg (3 mL) inhalation Q6H PRN albuterol sulfate 90 mcg/actuation (Ventolin HFA) 2 puffs inhalation Q6H PRN amlodipine 5 mg PO DAILY aspirin (Adult Low Dose Aspirin) 81 mg PO DAILY Marnie Lau U-100 Insulin (insulin glargine) 45 units (0.45 mL) subcut QAM NS cholecalciferol (vitamin D3) 50 mcg PO DAILY Dulera 100-5 mcg/actuation (mometasone-formoterol) 2 puffs inhalation Q12H NS empagliflozin 25 mg PO DAILY [Glucosamine PO] levothyroxine 88 mcg PO QAM losartan 100 mg PO DAILY lutein 20 mg PO DAILY magnesium citrate,mag oxide mg PO metformin 1,000 mg PO BID omeprazole 20 mg PO DAILY rosuvastatin 10 mg PO DAILY sotalol 120 mg PO BID spironolactone (Aldactone) 25 mg PO DAILY [Tumeric PO] vitamin B complex (B Complex-Vitamin B12 tablet) 1 tab PO DAILY HPI pulm nodule HPI Details 68-year-old lady, nonsmoker, with no fam jose history of lung disease, underlying asthma referred for evaluation of incidental finding of 1.1 cm right apical nodule. Patient also has underlying asthma now controlled on Symbicort and albuterol MDI/nebs. She does complain of environmental allergies. 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 She does not have pets. [facility] Medical History (Updated 12/24/23 @ 13:48 by Young Meza MD) Cataract (lens) fragments in eye following cataract surgery, bilateral Nodule of apex of right lung Osteoarthritis of right knee Loss of voice Acute exacerbation of mild persistent extrinsic asthma Asthma, mild intermittent Cough Eczema Otitis externa Shoulder pain, left Diabetes mellitus with hyperglycemia, with long-term current use of insulin Essential hypertension Dyslipidemia Acquired hypothyroidism Surgical History (Updated 11/26/23 @ 13:08 by Tasha Puri [facility]) History of carpal tunnel release History of lumpectomy of left breast H/O tubal ligation H/O thyroidectomy Family History Sister Diabetes mellitus Coronary artery disease Dyslipidemia Social History (Updated 12/24/23 @ 13:26 by Trini Willson LPN) Housing: House Alcohol intake: never Patient Tobacco Use Status: Never used Tobacco e-Cigarette/Vaping Use: Never Used Second Hand Smoke Exposure: No service: No Current occupational status: retired Cognitive needs: No Hearing needs: No Vision needs: Yes Review of Systems Const Denies daytime sleepiness, Denies excessive sweating, Denies fatigue, Denies fever(s), Denies lethargy, Denies malaise, Denies night sweats, Denies snoring and Denies weight loss Eyes Denies blurry vision and Denies itchy eyes ENT Denies nasal congestion, Denies post nasal drip, Denies sinus pain, Denies sinus pressure and Denies other ( Thrush) Card Denies chest pain, Denies pedal edema, Denies dyspnea, Denies orthopnea and Denies paroxysmal nocturnal dyspnea Resp Denies cough, Denies hemoptysis, Denies excessive phlegm production, Denies dyspnea, Denies snoring and Denies wheezing GI Denies abdominal pain and Denies heartburn Musc Denies myalgias, Denies arthralgias and Denies joint swelling Skin/Breast Denies rash Neuro Denies memory loss and Denies seizure-like activity Psych Denies abnormal sleep pattern, Denies anxiety and Denies memory loss Endo Denies excessive sweating, Denies fatigue and Denies heat intolerance Micky/Lymph Denies easy bruising Aller/Immun Denies itchy eyes, Denies seasonal rhinorrhea and Denies wheezing Physical Exam Vital Signs: Last Vital Signs Pulse 74 12/24/23 13:17 BP 136/70 12/24/23 13:17 Pulse Ox 98 12/24/23 13:17 Oxygen Delivery Method Room Air 12/24/23 13:17 BMI result Body Mass Index 32.6 Const General: no acute distress and alert Nutritional Appearance: not obese Orientation/consciousness: Other orientation findings ( oriented) HEENT Head: Yes atraumatic Eyes General: appearance normal, both eyes and all related structures Sclerae: sclerae normal EOM: EOMs intact bilaterally Neck Neck: Yes supple Lymphatic: no lymphadenopathy noted Resp Effort & Inspection: normal respiratory effort and no use of accessory muscles Auscultation: clear to auscultation bilaterally Cardio Rate: regular rate Rhythm: regular rhythm Heart sounds: no gallops, no murmurs and no rubs Skin General skin exam: other ( warm) Extrem General: No clubbing, No cyanosis and No edema Assessment & Plan Assessment & Plan (1) Nodule of apex of right lung: Code(s): R91.1 - Solitary pulmonary nodule Plan: Will repeat CT scan in 3 months to assess for changes. (2) Environmental allergies: Code(s): Z91.09 - Other allergy status, other than to drugs and biological substances Plan: Will obtain CBC, IgE level, and RAST panel for further evaluation. (3) Asthma: Code(s): J45.909 - Unspecified asthma, uncomplicated Plan: Will obtain full PFT. Continue current regimen of Dulera and albuterol MDI. Orders: Orders Complete Blood Count Auto Diff Today Z91.09 - Other allergy status, other than to drugs and biological substances PFT pulmonary function test Today Z91.09 - Other allergy status, other than to drugs and biological substances Resp Allergy Profile Region I Today Z91.09 - Other allergy status, other than to drugs and biological substances CT chest wo IV con Today R91.1 - Solitary pulmonary nodule Coding Level of Care Code New Pt Level 4 (32833) Diagnoses Nodule of apex of right lung R91.1 Environmental allergies Z91.09 Asthma J45.909
[2023-12-24 13:17] VITALS: BP 136/70; PULSE 74; O2SAT 98; BMI 32.6
== END 2023-12-24 13:41 | disposition home or self-care (01) ==
PROVIDERS: PCP Internal Medicine; Referring Provider Internal Medicine; Visit Provider Internal Medicine Pulmonary Disease
DX: R91.1 Solitary pulmonary nodule (principal); Z91.09 Other allergy status, other than to drugs and biological substances; J45.909 Unspecified asthma, uncomplicated
CPT/HCPCS: 99204

== ENCOUNTER 2024-03-01 09:03 | Outpatient (REF) | payer MEDICARE, OTHER, SELFPAY ==
[2024-03-01 11:20] LABS: Estimated Average Glucose 163 mg/dL; Hemoglobin A1c % 7.3 % (<6.0)
[2024-03-01 11:29] LABS: Alanine Aminotransferase 16 U/L (0-31); Anion Gap 16 (12-20); Aspartate Amino Transferase 14 U/L (5-31); Blood Urea Nitrogen 20 mg/dL (9-16); Calcium 10.1 mg/dL (8.4-10.2); Carbon Dioxide 25 mmol/L (22-29); Chloride 105 mmol/L (96-108); Cholesterol 149 mg/dL (<200); Estimated Glomerular Filt Rate > 60; Glucose Fasting 145 mg/dL (60-99); HDL Cholesterol 46 mg/dL (>40); LDL Cholesterol Calculated 88 mg/dL (<100); Potassium 4.4 mmol/L (3.3-5.1); Sodium 142 mmol/L (135-145); Triglycerides 78 mg/dL (<150)
[2024-03-01 11:38] LABS: Microalbum/Creatinine Ratio Ur 84.8 ug/mg cr (<30)
== END 2024-03-01 09:04 | disposition home or self-care (01) ==
LOC: HO.HMGCLDS 09:03
PROVIDERS: PCP Internal Medicine; Visit Provider Internal Medicine
DX: E11.65 Type 2 diabetes mellitus with hyperglycemia (principal); Z79.4 Long term (current) use of insulin; I10 Essential (primary) hypertension; E78.5 Hyperlipidemia, unspecified; E03.9 Hypothyroidism, unspecified
CPT/HCPCS: 36415; 80048; 80061; 82043; 82570; 83036; 84439; 84443; 84450; 84460

== ENCOUNTER 2024-03-07 11:36 | Outpatient (AMB) | payer MEDICARE, OTHER, SELFPAY ==
--- NOTE | 2024-03-07 11:39 | A.OFFPC_ITS ---
Vital Signs 03/07/24 11:40 Height 5 ft 5 in Weight 196 lb BMI 32.6 BP 124/74 Blood Pressure Location Lt brachial Position Sitting Pulse 71 Pulse Source Pulse Oximeter Pulse Oximetry (%) 96 Oxygen Delivery Method Room Air Intake Visit Reasons: 3mo. f/u labs Intake Note: Pt is here today for her 3 mo. f/u Allergies chloramphenicol Allergy (Unknown, Verified 03/14/24 15:59) rash pravastatin Allergy (Unknown, Verified 03/14/24 15:59) hives ciprofloxacin Adverse Reaction (Verified 03/14/24 15:59) burning sensation in ears latex Allergy (Unknown, Uncoded 03/14/24 15:59) rash Medication List - Last Reconciled 03/14/24 by Dede Perkins MD Admelog SoloStar U-100 Insulin (insulin lispro) 15 units (0.15 mL) subcut BID NS Advair HFA 115-21 mcg/actuation (fluticasone propion-salmeterol) 2 puffs inhalation Q12H NS albuterol sulfate 2.5 mg (3 mL) inhalation Q6H PRN albuterol sulfate 90 mcg/actuation (Ventolin HFA) 2 puffs inhalation Q6H PRN amlodipine 5 mg PO DAILY aspirin (Adult Low Dose Aspirin) 81 mg PO DAILY Carolagljayna Lau U-100 Insulin (insulin glargine) 45 units (0.45 mL) subcut QAM NS cholecalciferol (vitamin D3) 50 mcg PO DAILY Dulera 100-5 mcg/actuation (mometasone-formoterol) 2 puffs inhalation Q12H NS empagliflozin 25 mg PO DAILY [Glucosamine PO] levothyroxine 88 mcg PO QAM losartan 100 mg PO DAILY lutein 20 mg PO DAILY magnesium citrate,mag oxide mg PO metformin 1,000 mg PO BID omeprazole 20 mg PO DAILY rosuvastatin 10 mg PO DAILY sotalol 120 mg PO BID spironolactone (Aldactone) 25 mg PO DAILY [Tumeric PO] vitamin B complex (B Complex-Vitamin B12 tablet) 1 tab PO DAILY Tobacco use date assessed: 03/07/24 Fall risk assessment: No Falls in past year Last assessed Fall Risk: 03/07/24 Dental Screening Dental Screen Date: 03/07/24 Did you have a dental visit in the last 12 months?: Yes Did you have a dental problem in the last 6 months where you did not have access to dental care?: No Was dental information given to patient?: Patient has dentist HPI 3mo. f/u labs HPI Details 68 year-old lady with diabetes mellitus, dyslipidemia, hypertension and hypothyroidism, here today for her follow-up. Latest fasting labs showed hemoglobin A1c at 7.3%, with normal lipids, thyroid levels. She has been feeling well with no present time, takes her medicines as directed. However she states she has not been very compliant with her diet. [facility] Medical History (Updated 03/14/24 @ 16:07 by Dede Perkins MD) Cataract (lens) fragments in eye following cataract surgery, bilateral Nodule of apex of right lung Osteoarthritis of right knee Loss of voice Acute exacerbation of mild persistent extrinsic asthma Asthma, mild intermittent Cough Eczema Otitis externa Shoulder pain, left Diabetes mellitus with hyperglycemia, with long-term current use of insulin Essential hypertension Dyslipidemia Acquired hypothyroidism Surgical History History of carpal tunnel release History of lumpectomy of left breast H/O tubal ligation H/O thyroidectomy Family History Sister Diabetes mellitus Coronary artery disease Dyslipidemia Social History Housing: House Alcohol intake: never Patient Tobacco Use Status: Never used Tobacco e-Cigarette/Vaping Use: Never Used Second Hand Smoke Exposure: No service: No Current occupational status: retired Cognitive needs: No Hearing needs: No Vision needs: Yes Questionnaire PHQ-9 Over the last 2 weeks, how often have you been bothered by any of the following problems? Depression Screening Interpretation: Negative Depression Screening Done: Yes Source: Developed by Drs. Kurt Tavares, Gissel Maravilla, Ben Cheung and colleagues, with an educational lili from [employer]. Thrive Questionnaire Date Thrive assessed: 11/17/23 BRAYAN-7 AMB Questionnaire BRAYAN-7 Date BRAYAN - 7 assessed: 11/17/23 Source: Developed by Drs. Kurt Tavares, Gissel Maravilla, Ben Cheung and colleagues, with an educational lili from [employer]. Review of Systems Const Denies body aches, Denies fatigue, Denies headache(s), Denies malaise and Denies weakness Eyes Reports no additional complaints ENT Denies dizziness and Denies headache(s) Card Denies dyspnea Resp Denies chest congestion, Denies cough and Denies dyspnea GI Reports no additional complaints Reports no additional complaints Musc Denies joint swelling and Reports stiffness Neuro Denies dizziness, Denies headache(s), Denies Sensory deficit (Neuro) and Denies weakness Psych Reports no additional complaints Endo Denies fatigue Micky/Lymph Reports no additional complaints Aller/Immun Reports no additional complaints Physical exam (Primary Care) Vital Signs: Last Vital Signs Pulse 71 03/07/24 11:40 BP 124/74 03/07/24 11:40 Pulse Ox 96 03/07/24 11:40 Oxygen Delivery Method Room Air 03/07/24 11:40 BMI result Body Mass Index 32.6 Tobacco/Smoking Status: Tobacco use Status Tobacco use date assessed 03/07/24 03/07/24 11:46 Patient Tobacco Use Status Never used Tobacco 03/07/24 11:46 e-Cigarette/Vaping Use Never Used 03/07/24 11:46 Depression Screening Interpretation: Negative Thrive Assessment: Date of Thrive Assessment Date Thrive assessed 11/17/23 03/07/24 11:46 Const Other: Alert oriented x3, no acute distress noted ambulatory normal gait [facility] General nose exam: Normal external nose present and No nasal discharge present Mouth: oropharynx normal and moist mucous membranes Eyes General: appearance normal, both eyes and all related structures Neck Other: Neck is supple with no lymphadenopathy, thyroid gland nonpalpable Resp Effort & Inspection: normal respiratory effort and able to speak in complete sentences Auscultation: clear to auscultation bilaterally Cardio Other: S1-S2 present regular rate and rhythm GI Other: Obese, soft, non tender to palpation, normal bowel sounds, no mass palpated Other: Obese , normal bowel sounds, soft, nontender to palpation Skin General skin exam: no rashes or lesions noted Neuro General: gait normal, tone normal, moves all extremities, Normal light touch and pain sensation, no focal motor deficits and CN's II-XI intact bilaterally Sensory Exam: No Sensory deficit (Neuro) Extrem General: Yes full ROM, Yes no pedal edema and Yes normal gait Psych Appearance: grossly normal Mental Status: mental status grossly normal Speech and movement: Normal speech and movement present Affect: normal affect Attitude: cooperative Thought process: Normal thought process present Thought content: Normal thought content present Results Reviewed Results Reviewed: Laboratory Tests 03/01/24 09:10 Estimat Average Glucose 163 Hemoglobin A1c % 7.3 H Name: Victoria Anderson Age/Sex: 68/F : 1955 Unit#: [id number] Attend Dr: Dede Perkins MD Re03/01/24 Status: DEP [facility] Disch: SPEC : [id number] LASHONDA: 03/01/24 STATUS: COMP REQ : [id number] RECD: 03/01/24-[address]: Dede Perkins MD COMP: 03/01/24 ENTERED: 03/01/24-[address]: ORDERED: Met Prof Fast, AST, ALT, Lipid Panel, Free T4, TSH Test Result Flag Reference Sodium 142 135-145 mmol/L Potassium 4.4 3.3-5.1 mmol/L CL 105 96-108 mmol/L CO2 25 22-29 mmol/L Gap 16 12-20 BUN 20 H 9-16 mg/dL Creat 0.77 0.5-1.4 mg/dL EGFR > 60 NOTE: For -Cypriot individuals, multiply the result by 1.210. Chronic Kidney Disease: Estimated GFR < 60 mL/min/1.73m2 Severe Kidney Disease: Estimated GFR < 15 mL/min/1.73m2 FBS 145 H 60-99 mg/dL A fasting glucose of 126 mg/dl or greater on more than one occasion is considered diagnostic of diabetes. CA 10.1 8.4-10.2 mg/dL AST (GOT) 14 5-31 U/L ALT (GPT) 16 0-31 U/L Triglyceride 78 <150 mg/dL Desirable Triglyceride: less than 150 mg/dL Borderline High Triglyceride 150-199 mg/dL High Triglyceride: 200-499 mg/dL Very High Triglyceride: greater than or equal to 5OO mg/dL Cholesterol 149 <200 mg/dL Desirable Cholesterol: less than 200 mg/dL Borderline High Cholesterol: 200-239 mg/dL High Cholesterol: greater than 239 mg/dL LDL Calculated 88 <100 mg/dL Desirable LDL: less than 100 mg/dL Near Optimal/Above Optimal LDL: 110-129 mg/dL Borderline High LDL: 130-159 mg/dL High LDL: 160-189 mg/dL Very High LDL: greater than or equal to 190 mg/dL HDL 46 >40 mg/dL Desirable HDL: greater than 40 mg/dL Note: This HDL assay may give artificially low results in patients with liver disease. Free T4 1.00 0.71-1.85 ng/dL TSH 3rd Gen. 2.20 0.32-4.0 uIU/mL TSH 3rd Generation ([facility]) Assessment and Plan Assessment & Plan (1) Diabetes mellitus with hyperglycemia, with long-term current use of insulin: Code(s): E11.65 - Type 2 diabetes mellitus with hyperglycemia; Z79.4 - USP (current) use of insulin Qualifiers: Diabetes mellitus type: type 2 Qualified Code(s): E11.65 - Type 2 diabetes mellitus with hyperglycemia; Z79.4 - USP (current) use of insulin Plan: Continue with Admelog 15 units twice a day, Basaglar 45 units in the morning metformin 1000 mg twice a day. Reinforced importance of following a diabetic diet and getting regular exercise. [place], will see her back for follow-up after fasting labs done in 11/2024 (2) Essential hypertension: Code(s): I10 - Essential (primary) hypertension Plan: Blood pressure at goal of less than 130/80. Continue with current medication. Reinforced importance of following a low sodium diet, getting regular exercise, and lowering stress levels. (3) Dyslipidemia: Code(s): E78.5 - Hyperlipidemia, unspecified Plan: Change rosuvastatin dosing to 10 mg taken every other day, recheck lipids again in November 2024 (4) Acquired hypothyroidism: Code(s): E03.9 - Hypothyroidism, unspecified Plan: Thyroid levels are within normal limits, continue with current dose of levothyroxine at 88 mcg daily in a.m. Orders: Orders Hemoglobin A1c 11/19/24 E03.9 - Hypothyroidism, unspecified, E11.65 - Type 2 diabetes mellitus with hyperglycemia, E78.5 - Hyperlipidemia, unspecified, I10 - Essential (primary) hypertension, Z78.0 - Asymptomatic menopausal state, Z79.4 - exterminator termite (current) use of insulin Microalbumin, Random (w Creat) 11/19/24 E03.9 - Hypothyroidism, unspecified, E11.65 - Type 2 diabetes mellitus with hyperglycemia, E78.5 - Hyperlipidemia, unspecified, I10 - Essential (primary) hypertension, Z78.0 - Asymptomatic menopausal state, Z79.4 - exterminator termite (current) use of insulin Alanine Aminotransferase 11/19/24 E03.9 - Hypothyroidism, unspecified, E11.65 - Type 2 diabetes mellitus with hyperglycemia, E78.5 - Hyperlipidemia, unspecified, I10 - Essential (primary) hypertension, Z78.0 - Asymptomatic menopausal state, Z79.4 - USP (current) use of insulin Basic Metabolic Panel Fasting 11/19/24 E03.9 - Hypothyroidism, unspecified, E11.65 - Type 2 diabetes mellitus with hyperglycemia, E78.5 - Hyperlipidemia, unspecified, I10 - Essential (primary) hypertension, Z78.0 - Asymptomatic menopausal state, Z79.4 - USP (current) use of insulin Free T4 (Free Thyroxine) 11/19/24 E03.9 - Hypothyroidism, unspecified, E11.65 - Type 2 diabetes mellitus with hyperglycemia, E78.5 - Hyperlipidemia, unspecified, I10 - Essential (primary) hypertension, Z78.0 - Asymptomatic menopausal state, Z79.4 - exterminator termite (current) use of insulin Lipid Panel 11/19/24 E03.9 - Hypothyroidism, unspecified, E11.65 - Type 2 diabetes mellitus with hyperglycemia, E78.5 - Hyperlipidemia, unspecified, I10 - Essential (primary) hypertension, Z78.0 - Asymptomatic menopausal state, Z79.4 - USP (current) use of insulin Aspartate Amino Transferase 11/19/24 E03.9 - Hypothyroidism, unspecified, E11.65 - Type 2 diabetes mellitus with hyperglycemia, E78.5 - Hyperlipidemia, unspecified, I10 - Essential (primary) hypertension, Z78.0 - Asymptomatic menopausal state, Z79.4 - exterminator termite (current) use of insulin Vitamin D 25-OH Total 11/19/24 E03.9 - Hypothyroidism, unspecified, E11.65 - Type 2 diabetes mellitus with hyperglycemia, E78.5 - Hyperlipidemia, unspecified, I10 - Essential (primary) hypertension, Z78.0 - Asymptomatic menopausal state, Z79.4 - USP (current) use of insulin Thyroid Stimulating Hormone 11/19/24 E03.9 - Hypothyroidism, unspecified, E11.65 - Type 2 diabetes mellitus with hyperglycemia, E78.5 - Hyperlipidemia, unspecified, I10 - Essential (primary) hypertension, Z78.0 - Asymptomatic menopausal state, Z79.4 - USP (current) use of insulin Coding Level of Care Code Est Pt Level 4 (42853) Diagnoses Type 2 diabetes mellitus with hyperglycemia, with long-term current use of insulin E11.65; Z79.4 Diabetes mellitus type: type 2 Essential hypertension I10 Dyslipidemia E78.5 Acquired hypothyroidism E03.9
[2024-03-07 11:40] VITALS: BP 124/74; PULSE 71; O2SAT 96; BMI 32.6
== END 2024-03-07 12:30 | disposition home or self-care (01) ==
PROVIDERS: PCP Internal Medicine; Visit Provider Internal Medicine
DX: E11.65 Type 2 diabetes mellitus with hyperglycemia (principal); Z79.4 Long term (current) use of insulin; I10 Essential (primary) hypertension; E78.5 Hyperlipidemia, unspecified; E03.9 Hypothyroidism, unspecified
CPT/HCPCS: 99214

== ENCOUNTER 2024-03-24 12:44 | Outpatient (AMB) | payer MEDICARE, OTHER, SELFPAY ==
[2024-03-24 13:11] VITALS: BP 120/67; PULSE 70; O2SAT 95; BMI 33.6
--- NOTE | 2024-03-24 13:11 | MHC.OFFVIS ---
Vital Signs 03/24/24 13:11 Height 5 ft 5 in Weight 201 lb 11.567 oz BMI 33.6 BP 120/67 Blood Pressure Location Lt brachial Position Sitting Pulse 70 Pulse Source Doppler Pulse Oximetry (%) 95 Oxygen Delivery Method Room Air Intake Visit Reasons: pulm nodule Allergies chloramphenicol Allergy (Unknown, Verified 03/24/24 13:16) rash pravastatin Allergy (Unknown, Verified 03/24/24 13:16) hives ciprofloxacin Adverse Reaction (Verified 03/24/24 13:16) burning sensation in ears latex Allergy (Unknown, Uncoded 03/14/24 15:59) rash HPI HPI pulm nodule: Details: 68-year-old lady, nonsmoker, with no family history of lung disease, underlying asthma referred for evaluation of incidental finding of 1.1 cm right apical nodule. Patient also has underlying asthma now controlled on Symbicort and albuterol MDI/nebs. She does complain of environmental allergies. 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 She does not have pets. After the last office visit she had a repeat CT chest in 3 months that showed stable pulmonary nodules. She has not gotten her PFT yet. Patient continues on Symbicort and albuterol MDI. Patient denies recent exacerbations. [facility] Medical History (Updated 03/14/24 @ 16:07 by Dede Perkins MD) Cataract (lens) fragments in eye following cataract surgery, bilateral Nodule of apex of right lung Osteoarthritis of right knee Loss of voice Acute exacerbation of mild persistent extrinsic asthma Asthma, mild intermittent Cough Eczema Otitis externa Shoulder pain, left Diabetes mellitus with hyperglycemia, with long-term current use of insulin Essential hypertension Dyslipidemia Acquired hypothyroidism Surgical History History of carpal tunnel release History of lumpectomy of left breast H/O tubal ligation H/O thyroidectomy Family History Sister Diabetes mellitus Coronary artery disease Dyslipidemia Social History Housing: House Alcohol intake: never Patient Tobacco Use Status: Never used Tobacco e-Cigarette/Vaping Use: Never Used Second Hand Smoke Exposure: No service: No Current occupational status: retired Cognitive needs: No Hearing needs: No Vision needs: Yes Review of Systems Const Denies daytime sleepiness, Denies excessive sweating, Denies fatigue, Denies fever(s), Denies lethargy, Denies malaise, Denies night sweats, Denies snoring and Denies weight loss Eyes Denies blurry vision and Denies itchy eyes ENT Denies nasal congestion, Denies post nasal drip, Denies sinus pain, Denies sinus pressure and Denies other ( Thrush) Card Denies chest pain, Denies pedal edema, Denies dyspnea, Denies orthopnea and Denies paroxysmal nocturnal dyspnea Resp Denies cough, Denies hemoptysis, Denies excessive phlegm production, Denies dyspnea, Denies snoring and Denies wheezing GI Denies abdominal pain and Denies heartburn Musc Denies myalgias, Denies arthralgias and Denies joint swelling Skin/Breast Denies rash Neuro Denies memory loss and Denies seizure-like activity Psych Denies abnormal sleep pattern, Denies anxiety and Denies memory loss Endo Denies excessive sweating, Denies fatigue and Denies heat intolerance Micky/Lymph Denies easy bruising Aller/Immun Denies itchy eyes, Denies seasonal rhinorrhea and Denies wheezing Physical Exam Vital Signs: Last Vital Signs Pulse 70 03/24/24 13:11 BP 120/67 03/24/24 13:11 Pulse Ox 95 03/24/24 13:11 Oxygen Delivery Method Room Air 03/24/24 13:11 BMI result Body Mass Index 33.6 Const General: no acute distress and alert Nutritional Appearance: obese Orientation/consciousness: Other orientation findings ( oriented) HEENT Head: Yes atraumatic Eyes General: appearance normal, both eyes and all related structures Sclerae: sclerae normal EOM: EOMs intact bilaterally Neck Neck: Yes supple Lymphatic: no lymphadenopathy noted Resp Effort & Inspection: normal respiratory effort and no use of accessory muscles Auscultation: clear to auscultation bilaterally Cardio Rate: regular rate Rhythm: regular rhythm Heart sounds: no gallops, no murmurs and no rubs Skin General skin exam: other ( warm) Extrem General: No clubbing, No cyanosis and No edema Assessment & Plan Assessment & Plan (1) Asthma: Code(s): J45.909 - Unspecified asthma, uncomplicated Category: Medical Plan: Multiple episodes of thrush with Symbicort. Will add Spiriva. Continue albuterol MDI. (2) Environmental allergies: Code(s): Z91.09 - Other allergy status, other than to drugs and biological substances Category: Medical Plan: Results of RAST reviewed - no immunologic component noted at this time. (3) Nodule of apex of right lung: Code(s): R91.1 - Solitary pulmonary nodule Category: Medical Plan: Results of follow up CT chest reviewed - stable over the last three months, will repeat in six months. Orders: Orders CT chest wo IV con Today R91.1 - Solitary pulmonary nodule Coding Level of Care Code Est Pt Level 4 (25335) Diagnoses Asthma J45.909 Environmental allergies Z91.09 Nodule of apex of right lung R91.1
== END 2024-03-24 13:30 | disposition home or self-care (01) ==
PROVIDERS: PCP Internal Medicine; Visit Provider Internal Medicine Pulmonary Disease
DX: J45.909 Unspecified asthma, uncomplicated (principal); Z91.09 Other allergy status, other than to drugs and biological substances; R91.1 Solitary pulmonary nodule
CPT/HCPCS: 99214

== ENCOUNTER → 2024-03-24 12:44 | Outpatient (BNVA) | payer MEDICARE, OTHER, SELFPAY | PROVIDERS: PCP Internal Medicine; Visit Provider Internal Medicine Pulmonary Disease | DX: R91.1 Solitary pulmonary nodule (principal); J45.909 Unspecified asthma, uncomplicated; Z91.09 Other allergy status, other than to drugs and biological substances | CPT/HCPCS: 99212 ==

== ENCOUNTER 2024-05-07 | Outpatient (REF) | payer MEDICARE, OTHER, SELFPAY ==
[2024-05-07 10:04] VITALS: PULSE 62; RESP 16; O2SAT 98
--- NOTE | 2024-05-07 13:00 | PFT_ITS ---
Indication: Asthma Spirometry [FEV1 to FVC 81%; FEV1 1.46 L; FVC 1.81 L. No significant response to bronchodilators noted. Maximum voluntary ventilation 53% predicted] Lung Volumes [Total lung capacity 69% predicted; expiratory reserve volume 22% predicted] Diffusion Capacity [DLCO 88% predicted] Comparisons [None] Interpretation [No obstructive ventilatory defects. No significant response to bronchodilators noted. There is a moderate decrease in maximum voluntary ventilation secondary to likely deconditioning although cannot rule out neuromuscular conditions. The patient does have a restrictive ventilatory defect consistent with [id number] restrictive lung disease. Need to consider underlying parenchymal lung disease and or neuromuscular conditions. Although, she does have an elevated BMI that is likely contributing to the decrease in the total lung capacity. Diffusing capacity is within normal limits. Clinical correlation warranted] MTDD
== END 2024-05-09 08:35 | disposition home or self-care (01) ==
LOC: HO.RESP
PROVIDERS: PCP Internal Medicine; Visit Provider Internal Medicine Pulmonary Disease
DX: Z91.09 Other allergy status, other than to drugs and biological substances (principal)
CPT/HCPCS: 94010; 94640; 94727; 94729

== ENCOUNTER 2024-12-12 08:58 | Outpatient (REF) | payer MEDICARE, OTHER, SELFPAY ==
--- OUTSIDE RECORDS SUMMARY | 2024-12-12 09:29 | XMS_ITS | Clinical Summary ---
Author Organization [facility] Address [address] [place] [address] Care Team Providers Care Charter Representative Name Role Phone Dede Perkins MD Primary Care Provider Allergies Active Allergy Reactions Criticality Noted Date Comments Chloramphenicol 04/16/2021 Latex 04/16/2021 Lisinopril 04/16/2021 Nitroglycerin 04/16/2021 Pravastatin 04/16/2021 Medications albuterol HFA (PROAIR HFA ; PROVENTIL HFA ; VENTOLIN HFA) 90 mcg/actuation inhaler Inhale 2 Puffs into the lungs every 4 hours as needed. Active amLODIPine (NORVASC) 5 mg tablet Take 1 Tablet by mouth daily. 04/27/2024 Active aspirin 81 mg EC tablet Take 81 mg by mouth daily. 03/16/2019 Active budesonide-formo teroL (SYMBICORT) 160-4.5 mcg/actuation inhaler Inhale 2 Puffs into the lungs 2 times daily. Active cholecalciferol, vitamin D3, (cholecalciferol , vit D3,,bulk,) 100,000 unit/gram powder 1 tablet Orally Once a day Active empagliflozin (Jardiance) 25 mg tablet Take 25 mg by mouth daily. 09/05/2019 Active insulin glargine (Lantus U-100 Insulin) 100 unit/mL injection Active insulin lispro 100 unit/mL injection Active levothyroxine (SYNTHROID, LEVOTHROID) 88 mcg tablet Take 100 mcg by mouth daily. Active losartan (COZAAR) 100 mg tablet Take 1 Tablet by mouth daily. 05/06/2022 Active lutein 20 mg tablet Take 1 Tablet by mouth daily. Active metFORMIN (GLUCOPHAGE) 1,000 mg tablet Take 1 Tablet by mouth 2 times daily (with meals). Active rosuvastatin (CRESTOR) 5 mg tablet Take 5 mg by mouth daily. Active sotaloL (BETAPACE) 120 mg tablet TAKE ONE TABLET BY MOUTH TWICE DAILY 05/03/2024 Active spironolactone (ALDACTONE) 25 mg tablet Take 1 Tablet by mouth daily. 04/27/2024 Active cyanocobalamin (VITAMIN B-12) 1,000 mcg tablet Take 1 tablet by mouth daily. Active Active Problems Problem Noted Date Diagnosed Date Arrhythmogenic right ventricular cardiomyopathy 05/06/2022 Overview (09/23/2024): 66-year-old female with a history of a cardiac arrest in documented ventricular tachycardia. [employer] ICD implanted for secondary prevention. Diagnosis of ARVD was made and she has a family history of arrhythmia. Has been on sotalol for years with no shocks or documented arrhythmia. Last Assessment & Plan: Overall doing quite well from a ARVD standpoint with no recurrent VT. She has a normally functioning defibrillator. I am going to stop hydrochlorothiazide to avoid hypokalemia which can be proarrhythmic. Chest pain 04/16/2021 Overview (09/23/2024): Chest pain Fatigue 04/16/2021 Overview (09/23/2024): Fatigue Hyperlipidemia 04/16/2021 Overview (09/23/2024): Hyperlipidemia Hypertensive disorder 04/16/2021 Overview (09/23/2024): Hypertensive disorder Last Assessment & Plan: Blood pressure generally under good control. I am going to have her stop hydrochlorothiazide and continue amlodipine and losartan. I would increase the amlodipine to 10 mg daily if she has systolic readings above 130 consistently. Encouraged a low-sodium diet and regular exercise. Obesity 04/16/2021 Overview (09/23/2024): Obesity Encounters Date Type Department Care Team Description 11/01/2024 Telephone [facility] - [address] [place] [address] Daniel Connors MD 10/26/2024 Telephone [facility] - [facility] [address] [facility] [address] [place] [id number] Daniel Connors MD from Last 3 Months Social History Tobacco Use Types Packs/Day Years Used Date Smoking Tobacco: Never Smokeless Tobacco: Never Alcohol Use Standard Drinks/Week Comments Not Currently 0 (1 standard drink = 0.6 oz pur e alcohol) Comments Unknown Sex and Gender Information Value Date Recorded Sex Assigned at Not on file Legal Sex Female 12:15 AM EST Gender Identity Not on file Sexual Orientation Not on file Obstetrics History Last Filed Vital Signs Vital Sign Reading Time Taken Comments Blood Pressure 128/74 04/27/2024 3:37 PM EDT Pulse 71 04/27/2024 3:37 PM EDT Temperature - - Respiratory Rate - - Oxygen Saturation - - Inhaled Oxygen Concentration - - Weight 90.7 kg (200 lb) 04/27/2024 3:37 PM EDT Height 154.9 cm (5' 1 ) 04/27/2024 3:37 PM EDT Body Mass Index 37.79 04/27/2024 3:37 PM EDT Plan of Treatment Upcoming Encounters Date Type Department Care Team ([facility] st Contact Info) Description 12/19/2024 8:30 AM EST Ancillary Procedure [facility] - [facility] [address] [facility] [address] [place] [address] Health Maintenance Due Date Last Done Comments Breast Cancer Screening 1955 DTaP,Tdap,and Td Vaccines (1 - Tdap) 1976 Pneumococcal Vaccine: 50+ Years (1 of 1 - PCV) 2007 Zoster Vaccines (1 of 2) 2007 RSV Immunization Patients 60 + Years Old (1 - Risk 60-74 years 1-dose series) 2017 Cholesterol Screening (Lipid Panel) 09/27/2022 Colorectal Cancer Screening: Colonoscopy 09/27/2022 Depression Screening 09/27/2022 Falls Risk Assessment 09/27/2022 Hepatitis C Screening 09/27/2022 Medicare Annual Wellness Visit 09/27/2022 Osteoporosis Screening (Bone Density Screening) 09/27/2022 Social Influencers of Health Screening 09/27/2022 COVID-19 Vaccine ( - 2023-2 5 season) 2024 Influenza Vaccine (#1) 2024 Hypertension/CHF/CAD Annual BMP Blood Test 05/11/2025 05/11/2024, 05/11/2024 HIB Vaccines Aged Out No longer eligi ble based on patient's age to complete this topic HPV Vaccines Aged Out No longer eligi ble based on patient's age to complete this topic Hepatitis A Vaccines Aged Out No long er eligible based on patient's age to complete this topic Hepatitis B Vaccines Aged Out No long er eligible based on patient's age to complete this topic IPV Vaccines Aged Out No longer eligi ble based on patient's age to complete this topic MMR Vaccines Aged Out No longer eligi ble based on patient's age to complete this topic Meningococcal ACWY Vaccine Aged Out N o longer eligible based on patient's age to complete this topic Meningococcal B Vacine Aged Out No lo nger eligible based on patient's age to complete this topic RSV Immunization Patients Under 20 months Aged Out No longer eligible b ased on patient's age to complete this topic Varicella Vaccines Aged Out No longer eligible based on patient's age to complete this topic Procedures Procedure Name Priority Date/Time Associated Diagnosis Comments ANNUAL BMP BLOOD TEST Routine 05/11/2024 from Last 3 Months or Most Recently Relevant to Health Maintenance Results * Annual BMP Blood Test (05/11/2024) Annual BMP Blood Test Abstracted Historical Provider HEALTH MAINTENANCE Final Result from Last 3 Months or Most Recently Relevant to Health Maintenance Insurance MEDICARE [facility] [address] [place] [address] Care Teams Charter Representative Relationship Specialty Start Date End Date Dede Perkins MD [address] [place] [address] PCP - General 10/04/12
--- OUTSIDE RECORDS SUMMARY | 2024-12-12 09:29 | XMS_ITS ---
Author Organization [facility] Address [address] [place] [address] Care Team Providers Care Associate Professor Of Art History Name Role Phone ELIANA VELEZ MD Primary Care Provider Samantha Stuart Unavailable [phone] Allergies Allergen (clinical drug ingredient) Drug/Non Drug Allergy documented on EMR Reaction Allergy Type Onset Date Status Chloramphenicol Hives Drug Allergy A ctive Latex Latex Unknown Allergy Active Substance with 7-ewgaifq-1-methylgl utaryl-coenzyme A reductase inhibitor mechanism of action (substance) Statins Skin Rash Drug Allergy Active Results Component Value Reference Range Notes THIN PREP,HPV,DAVID IF HPV+ ( >29YR)(DIAG) Reviewed date:12/01/2023 01:08:33 PM Interpretation: Performing Lab:Testing performed or reported by [facility], a Service of [facility], [address] [place] [address] Charles Gee MD, [employer] [facility]# [id number] Notes/Report: Patient Name: MARITA SAWANT Patient : 1955 (Age: 68) Lab Collection Date: 11/24/2023 Accession Date: 11/24/2023 Sign Out Date: 12/01/2023 Tissue Source: 1: THINPREP GATE AGENT PAP TEST, CERVICAL/VAGINAL: Final Diagnosis: NEGATIVE FOR INTRAEPITHELIAL LESION OR MALIGNANCY. Atrophy. Satisfactory for evaluation. Procedures/Addenda: Human Papilloma Virus, High-Risk(Reflex GT) Status: Signed Out Interpretation: Negative Methodology: Obatech Aptima HPV mRNA assay (Nucleic Acid Amplification Test, NAAT) Clinical History: Date of Last Menstrual Period: not available Menstrual History: Post-menopausal Contraceptive History: not available Ancillary Testing: HPV (Reflex GT) Case imaged by the ThinPrep Imaging System with manual rescreening or review. Performed at [facility] department of Cytology, Rocio Daniels [place] Clinical History (other): Z01.419, 10/31/16 NIL neg hpv Phone #: [phone], On-Call Pathologist: [id number] REASON FOR VISIT Annual GATE AGENT Physical, Annual GATE AGENT Physical 60-85+ Medications Medication SIG (Take, Route, Frequency, Duration) Notes Start Date End Date Status metFORMIN HCl 1000 MG 1 tablet with meal s Orally Twice a day Active Lantus for OptiClik Active Vitamin B12 1000 MCG 1 tablet Orally Onc e a day Active Aspirin 81 MG 1 tablet Orally Once a day Active Losartan Potassium-HCTZ 100-25 MG 1 tablet Orally Once a day Active Vitamin D3 1000 UNIT 1 tablet Orally Onc e a day Active Rosuvastatin Calcium 10 MG 1 tablet Orally Once a day Active Sotalol HCl 120 MG 1 tablet Orally ever y 12 hrs Active Jardiance 25 MG 1 tablet Orally Once a day Active amLODIPine Besylate 5 MG 1 tablet Orally Once a day Active Spironolactone 25 MG 1 tablet Orally Unknown Dose Active miSOPROStol 200 MCG 2 Orally night befor e procedure for 1 days 11/24/2023 Active Basaglar KwikPen 100 UNIT/ML as directed Subcutaneous Active Social History Tobacco Use: Social History Observation Description Date Details (start date - stop date) Never Smoker NA - NA Tobacco Use/Smoking Question Answer Notes Are you a nonsmoker Alcohol Screen (Audit-C) Question Answer Notes Did you have a drink containing alcohol in the p ast year? No Points 0 Interpretation Negative Problems Problem Type SNOMED Code ICD Code Onset Dates Problem Status W/U Status Risk Notes Problem Asthma (682769073) Other asthma (J45.998) Active confirmed Problem Essential hypertension (67336394) Essential (primary) hypertension (I10) Active confirmed Problem Disorder due to type 2 diabetes mellitus (348159843) Type 2 diabetes mellitus with unspecified complications (E11.8) Active confirmed Problem Postmenopausal bleeding (63772916) Postmenopausal bleeding (N95.0) Active confirmed Problem Cystocele (872858919) Cystocele, unspecified (N81.10) Active confirmed Problem SI - Stress incontinence (36844584) Stress incontinence (female) (male) (N39.3) Active confirmed Vital Signs Temperature 98.1 degrees Fahrenheit 11/24/19 24 Blood pressure systolic 112 mm Hg 11/24/19 24 Blood pressure diastolic 70 mm Hg 024 Height 5 ft 1 in in 11/24/2023 Weight 200 lbs 11/24/2023 BMI 37.79 kg/m2 11/24/2023 Encounters Encounter Location Date Provider Diagnosis [address] [address] 11/24/2023 Samantha Michael Encounter for screening mammogram for malignant neoplasm of breast Z12.31 ; Postmenopausal bleeding N95.0 ; Cystocele, unspecified N81.10 ; Postmenopausal atrophic vaginitis N95.2 ; Encounter for gynecological examination (general) (routine) without abnormal findings Z01.419 and Stress incontinence (female) (male) N39.3 Assessments Encounter Date Diagnosis (ICD Code) Assessment Notes Treatment Notes Treatment Clinical Notes Section Notes 11/24/2023 Encounter for screening mammogram for malignant neoplasm of breast (ICD-10 - Z12.31) REGULAR MAMMOGRAMS AND SBE'S WERE RECOMMENDED. 11/24/2023 Postmenopausal bleeding (ICD-10 - N95.0) DISCUSSED IMPLICATIONS OF PMB AND IMPORTANCE OF WORK UP. RECOMMENDED HSONO AND EMB AND PAT AGREED. MIXO/MOTRIN 11/24/2023 Cystocele, unspecified (ICD-10 - N81.10) DISCUSSED FINDINGS, DX AND TX OPTIONS. REFER TO DR OWENS FOR FURTHER EVALUATION AND MX 11/24/2023 Postmenopausal atrophic vaginitis (ICD-10 - N95.2) DISCUSSED FINDINGS, DX AND TX OPTIONS. PAT IS NOT INTERESTED IN INTRAVAGINAL ESTROGEN. 11/24/2023 Encounter for gynecological examination (general) (routine) without abnormal findings (ICD-10 - Z01.419) PAP TEST WITH HPV TYPING WAS OBTAINED. OBTAIN MAMMOGRAM AND BMD RESULTS. 11/24/2023 Stress incontinence (female) (male) (ICD-10 - N39.3) DISCUSSED INCONTINENCE AND NEED FOR UROLOGIC EVALUATION AND MX. REFER TO DR OWENS. Plan Of Treatment Medication Medication Name Sig Start Date Stop Date Notes miSOPROStol 200 MCG 2 Orally night befor e procedure for 1 days 11/24/2023 Treatment Notes Assessment Notes Encounter for screening mamm ogram for malignant neoplasm of breast REGULAR MAMMOGRAMS AND SBE'S WERE RECOMMENDED. Postmenopausal bleeding DISCUSSED IMPLICATIONS OF PMB AND IMPORTANCE OF WORK UP. RECOMMENDED HSONO AND EMB AND PAT AGREED. MIXO/MOTRIN Cystocele, unspecified DISCUSSED FINDINGS, DX AND TX OPTIONS. REFER TO DR OWENS FOR FURTHER EVALUATION AND MX Postmenopausal atrophic vaginitis DISCUSSED FINDINGS, DX AND TX OPTIONS. PAT IS NOT INTERESTED IN INTRAVAGINAL ESTROGEN. Encounter for gynecological examination (general) (routine) without abnormal findings PAP TEST WITH HPV TYPING WAS OBTAINED. OBTAIN MAMMOGRAM AND BMD RESULTS. Stress incontinence (female) (male) DISCUSSED INCONTINENCE AND NEED FOR UROLOGIC EVALUATION AND MX. REFER TO DR OWENS. Pending Test Test Name Order Date Sonohysterogram 11/24/2023 MAMMOGRAM, SCREENING 11/24/2023 ENDOMETRIAL BX 11/24/2023 MM Digital Mammo Screening 11/24/2023 Next Appt Details Follow Up: 12/25/23, Reason: Progress Notes * MARITA SAWANTDOB:0 1955 (68 yo F)Acc No.[id number]:11/24/2023 Progress Note Patient:?WONGCIMARITA ROQUE Appointment Provider:?Samantha bedoya M.D. :1955???Age:68 Y???Sex:Female D ate:11/24/2023 Address:[address] [place] [address], [facility] Pcp:ELIANA VELEZ MD Subjective: * Chief Complaints: * ???Annual GATE AGENT PhysicalAnnual GATE AGENT Physical 60-85+ * HPI: ???New/Follow-up Patient Consult:? PAT WAS LAST HERE IN 2017 AND FAILED TO RETURN UNTIL NOW. 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 SHE STOPPED BEING SEXUALLY ACTIVE THEN. HER IS DIABETIC. ?SHE HAS NOTED PINK AND BRIGHT RED STAINING OFF AND ON FOR A FEW YEARS. SHE SAYS SHE TOLD HER PCP, DR VELEZ BUT NOTHING HAS BEEN DONE ABOUT IT. ?SHE ALSO C/O URINARY INCONTINENCE. SHE LOSES URINE WHEN SHE COUGHS OR LAUGHS AND WEARS A PAD DAILY THAT IS CAUSING VULVAR IRRITATION. ?HER MEDICAL HX SHOWS SHE IS A TYPE 2 DIABETIC, IS HYPERTENSIVE AND HAD GRAVE'S DISEASE. SHE WAS TREATED WITH RADIOACTIVE IODINE IN 2015 AND IS NOW HYPOTHYROID. SHE HAS A HX OF RIGHT VENTRICULAR DYSPLASIA AND HAS AN IMPLANTABLE CARDIOVERTER DEVISE INSERTED. ?HER SURGICAL HX IS FOLLOWS: BTL, PARTIAL THYROIDECTOMY, CARPAL TUNNEL SURGERY, RIGHT WRIST GANGLION EXCISION, LEFT LUMPECTOMY IN 2013 WITH BENIGN FINDINGS. ?HER LAST MAMMOGRAM AND BMD WERE DONE IN LATE 2022 AT [facility]. WE WILL GET THE RESULTS. ?HER LAST PAP TEST DONE IN 2016 WAS NEGATIVE AND HPV NEGATIVE. ?SHE HAD A COLONOSCOPY DONE IN 2018. ?MODERNA X 4. ???Annual:? Patient presents for annual exam, ages 60-85, postmenopausal. ?General Health Maintenance:?Current breast complaints:?no breast pain, mass, discharge, or skin changes ?Urinary problems:?patient reports no urinary health problems or bowel health problems ?Calcium intake:?takes adequate calcium via diet and supplementation ?Significant GATE AGENT problems:?no significant nurse gynecology symptoms or problems * ROS:?general:?no?chest pain.?no?palpitations.?no?headache.?no?cough.?no?shortness of breath.?no?fever.?no?unexplained weight loss.?no?nausea/vomiting.?no?change in bowel movements.?no blood in stool.?no?genitourinary complaints.?no?skin complaints.? * Medical History:? * Insulator Tester History:?/ Para?4/4.?Last Pap Smear:?10/31/16, NIL, NEG HPV.?Mammogram:?2022, 2015 , normal.?Abnormal Pap Smear:?no history of abnormal pap smears.?LMP and menses?menopause.?Menopause: ?Began at age: ?52 ???Colonoscopy?yes 2017, 2010.?Bone Density:?2022.? * OB History:?Total pregnancies?4.?Total living children?4.?NVD?4.? * Surgical History:?Bilateral Tubal Ligation 1986CTR 2019Left Lumpectomy 2015Subtotal Thyroidectomy 1987Ganglion Cyst Removed 2017Cataracts 2018Colonoscopy * Hospitalization/Major Diagno stic Procedure:?4 Vaginal Deliveries See Surgical Hx * Family History:?Mother: dece ased, Brain Tumor.?Father: , Heart Issues.?Maternal aunt: Breast Cancer.? Sister: alive, Breast Cancer. * Social History:?Tobacco Use:?Tobacco Use/Smoking?Are you a?nonsmoker ???Drugs/Alcohol:?Drugs?Have you used drugs other than those for medical reasons in the past 12 months??No ?Alcohol Screen (Audit-C)?Did you have a drink containing alcohol in the past year??No ?Points?0 ?Interpretation?Negative ???Miscellaneous:?Children: yes. ?Exercise: yes, walking. ?Home smoke detector use: yes. ?Marital status: . ?Natural support system: yes. ?Occupation: Retired. ?no Sexually active, monogamous relationship. * Medications:?TakingBasaglar KwikPen 100 UNIT/ML Solution Pen-injector as directed Subcutaneous Jardiance 25 MG Tablet 1 tablet Orally Once a dayamLODIPine Besylate 5 MG Tablet 1 tablet Orally Once a daySpironolactone 25 MG Tablet 1 tablet Orally , Notes: Unknown DoseSotalol HCl 120 MG Tablet 1 tablet Orally every 12 hrsAspirin 81 MG Tablet Delayed Release 1 tablet Orally Once a dayLosartan Potassium-HCTZ 100- 25 MG Tablet 1 tablet Orally Once a dayVitamin D3 1000 UNIT Tablet 1 tablet Orally Once a dayRosuvastatin Calcium 10 MG Tablet 1 tablet Orally Once a daymetFORMIN HCl 1000 MG Tablet 1 tablet with meals Orally Twice a dayLantus for OptiClik Vitamin B12 1000 MCG Tablet Extended Release 1 tablet Orally Once a dayTaking Basaglar KwikPen 100 UNIT/ML Solution Pen-injector as directed Subcutaneous Taking Jardiance 25 MG Tablet 1 tablet Orally Once a dayTaking amLODIPine Besylate 5 MG Tablet 1 tablet Orally Once a dayTaking Spironolactone 25 MG Tablet 1 tablet Orally , Notes: Unknown DoseTaking Sotalol HCl 120 MG Tablet 1 tablet Orally every 12 hrsTaking Aspirin 81 MG Tablet Delayed Release 1 tablet Orally Once a dayTaking Losartan Potassium-HCTZ 100-25 MG Tablet 1 tablet Orally Once a dayTaking Vitamin D3 1000 UNIT Tablet 1 tablet Orally Once a dayTaking Rosuvastatin Calcium 10 MG Tablet 1 tablet Orally Once a dayTaking metFORMIN HCl 1000 MG Tablet 1 tablet with meals Orally Twice a dayTaking Lantus for OptiClik Taking Vitamin B12 1000 MCG Tablet Extended Release 1 tablet Orally Once a dayDiscontinuedBetapace 120 MG Tablet 1 tablet Orally every 12 hrsNorvasc 5 MG Tablet 1 tablet Orally Once a dayMedication List reviewed and reconciled with the patientDiscontinued Betapace 120 MG Tablet 1 tablet Orally every 12 hrsDiscontinued Norvasc 5 MG Tablet 1 tablet Orally Once a dayMedication List reviewed and reconciled with the patient * Allergies:?Chloramphenicol: Hives - AllergyStatins: Skin Rash - Allergyno[Allergies Verified] Objective: * Vitals:?Ht: 5 ft 1 in, Wt: 2 00 lbs, BMI:37.79 Index, BP: 112/70 mm Hg, Temp: 98.1 F. * Examination: ???General Exam: ?CONSTITUTIONAL:?NECK/THYROID:?RESPIRATORY:?Auscultation: clear to auscultation bilaterally, Respiratory Effort: normal.?CARDIOVASCULAR:?Auscultation: regular rate and rhythm.?BREAST, Right:?BREAST, Left:?GASTROINTESTINAL:?MUSCULOSKELETAL:?SKIN:?NEURO/PSYCH:?Genitourinary: ?EXTERNAL GENITALIA:?VAGINA:?BLADDER:?URETHRA:?CERVIX:?UTERUS:?ADNEXA:?ANUS AND PERINEUM:? Assessment: * Assessment: 1.?Encounter for screening m ammogram for malignant neoplasm of breast - Z12.31?2.?Postmenopausal bleeding - N95.0?3.?Cystocele, unspecified - N81.10?4.?Postmenopausal atrophic vaginitis - N95.2?5.?Encounter for gynecological examination (general) (routine) without abnormal findings - Z01.419 (Primary)?6.?Stress incontinence (female) (male) - N39.3? Plan: * Treatment: 2.?Encounter for screening m ammogram for malignant neoplasm of breast?Imaging: MM Digital Mammo Screening Notes: REGULAR MAMMOGRAMS AND SBE'S WERE RECOMMENDED.?? 3.?Postmenopausal bleeding? Start miSOPROStol Tablet, 200 MCG, 2, Orally, night before procedure, 1 days, 2 Tablet, Refills 0.?Imaging: Sonohysterogram ?Imaging: ENDOMETRIAL BX Notes: DISCUSSED IMPLICATIONS OF PMB AND IMPORTANCE OF WORK UP. RECOMMENDED HSONO AND EMB AND PAT AGREED. MIXO/MOTRIN?? 4.?Cystocele, unspecified? Notes: DISCUSSED FINDINGS, DX AND TX OPTIONS. REFER TO DR OWENS FOR FURTHER EVALUATION AND MX?? 5.?Postmenopausal atrophic v aginitis? Notes: DISCUSSED FINDINGS, DX AND TX OPTIONS. PAT IS NOT INTERESTED IN INTRAVAGINAL ESTROGEN.?? 6.?Stress incontinence (fema le) (male)? Notes: DISCUSSED INCONTINENCE AND NEED FOR UROLOGIC EVALUATION AND MX. REFER TO DR OWENS.?? * Imaging:? * ?Imaging: MAMMOGRAM, SCR EENING * Labs:? * ?Lab: THIN PREP,HPV,DAVID IF HPV+ (>29YR)(DIAG) * Procedure Codes:? * Preventive Medicine:? ??YOUR PREVENTIVE WELLNESS PLAN:?Osteoporosis prevention?Calcium, D, strength training.?Breast Cancer Screening (Mammogram):?annually.?Cervical Cancer Screening (Pap Smear):?q 3 years with HPV screen.?Colorectal Cancer Screening:?q 10 years.? * Follow Up:?12/25/23 * Images: Billing Information: * Visit Code:? [id number] Preventive Care Est Pt. Age 65 and over. * Procedure Codes:? * Sign off status: Completed Addendum: * ? true * Appointment Provider:?Samantha Rodriguez M.D. Date:?11/24/2023 Generated for Tawanda rodriguez/Jarred/Elhamsmitting on:?12/12/2024 09:29 AM EST History and Physical Notes * HPI (History of Present Illness) Category Sub-Category Detail Notes Category Not es New/Follow-up Patient Consult PAT WAS LAST HERE IN 2017 AND FAILED TO RETURN UNTIL NOW. 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 SHE STOPPED BEING SEXUALLY ACTIVE THEN. HER IS DIABETIC. SHE HAS NOTED PINK AND BRIGHT RED STAINING OFF AND ON FOR A FEW YEARS. SHE SAYS SHE TOLD HER PCP, DR VELEZ BUT NOTHING HAS BEEN DONE ABOUT IT. SHE ALSO C/O URINARY INCONTINENCE. SHE LOSES URINE WHEN SHE COUGHS OR LAUGHS AND WEARS A PAD DAILY THAT IS CAUSING VULVAR IRRITATION. HER MEDICAL HX SHOWS SHE IS A TYPE 2 DIABETIC, IS HYPERTENSIVE AND HAD GRAVE'S DISEASE. SHE WAS TREATED WITH RADIOACTIVE IODINE IN 2015 AND IS NOW HYPOTHYROID. SHE HAS A HX OF RIGHT VENTRICULAR DYSPLASIA AND HAS AN IMPLANTABLE CARDIOVERTER DEVISE INSERTED. HER SURGICAL HX IS FOLLOWS: BTL, PARTIAL THYROIDECTOMY, CARPAL TUNNEL SURGERY, RIGHT WRIST GANGLION EXCISION, LEFT LUMPECTOMY IN 2013 WITH BENIGN FINDINGS. HER LAST MAMMOGRAM AND BMD WERE DONE IN LATE 2022 AT [facility]. WE WILL GET THE RESULTS. HER LAST PAP TEST DONE IN 2017 WAS NEGATIVE AND HPV NEGATIVE. SHE HAD A COLONOSCOPY DONE IN 2018. MODERNA X 4. Annual General Health Maintenance: Current breast complaints:: no breast pain, mass, discharge, or skin changes Urinary problems:: patient nasreen bahena no urinary health problems or bowel health problems Calcium intake:: takes adequ ate calcium via diet and supplementation Significant GATE AGENT problems:: n o significant nurse gynecology symptoms or problems Examination Category Sub-Category Detail Notes Category Not es General Exam CONSTITUTIONAL: General Appearan ce:: alert, in no acute distress, normal, well nourished NECK/THYROID: Thyroid:: normal size and shape Inspection/Palpation:: normal RESPIRATORY: Auscultation: clear to auscultation bilaterally, Respiratory Effort: normal CARDIOVASCULAR: Auscultation: regula r rate and rhythm GASTROINTESTINAL: Hernias:: no hernias present, no inguinal adenopathy Liver and Spleen:: normal Abdomen:: no masses, nontender, nondiste nded MUSCULOSKELETAL: Inspection/Palpation:: no clubb ing, cyanosis, or edema SKIN: Skin:: normal NEURO/PSYCH: Mood/Affect:: normal Orientation:: time , place, person BREAST, Right: Inspection/Palpation :: no discharge, no masses present, no nipple retraction, no skin changes, no skin dimpling, no tenderness, no lymphadenopathy, no axillary mass, no axillary tenderness BREAST, Left: Inspection/Palpation :: no discharge, no masses present, no nipple retraction, no skin changes, no skin dimpling, no tenderness, no lymphadenopathy, no axillary mass, no axillary tenderness Genitourinary EXTERNAL GENITALIA: External Genitalia:: nor mal, no lesions VAGINA: Vagina:: atrophic va ginal tissue, minimal moisture, cystocele present (2nd degree) BLADDER: Bladder:: no mass, nontender URETHRA: Urethra:: no erythema or lesions present CERVIX: Cervix:: no lesions, nontender UTERUS: Uterus:: nontender, normal conto ur, normal mobility, normal size ADNEXA: Adnexa:: no masses, no tendernes s ANUS AND PERINEUM: Anus/Perineum:: visually norm al
--- OUTSIDE RECORDS SUMMARY | 2024-12-12 09:30 | XMS_ITS ---
Author Organization [email or web address] [facility] Address [address] [address] Care Team Providers Care Unemployment Benefits Claims Taker Name Role Phone ELIANA VELEZ MD Primary Care Provider Robert Rodriguez Samantha Unavailable [phone] Allergies Allergen (clinical drug ingredient) Drug/Non Drug Allergy documented on EMR Reaction Allergy Type Onset Date Status Chloramphenicol Hives Drug Allergy A ctive Chloramphenicol rash Drug Allergy A ctive Simvastatin rash Drug Allergy Activ e Latex Unknown Drug Allergy Active Substance with 3-qlkeuvu-9-methylgl utaryl-coenzyme A reductase inhibitor mechanism of action (substance) Statins Skin Rash Drug Allergy Active Results Component Value Reference Range Notes SURGICAL PATHOLOGY Reviewed date:12/30/2023 10:42:10 AM Interpretation: Performing Lab:Testing performed or reported by [facility], a Service of [facility], [address] [place] [address] Charles Gee MD, [employer] [facility]# [id number] Notes/Report: Patient Name: YOGESH BONDMARITA Lab Patient : 1955 (Age: 68) Collection Date: 12/25/2023 Accession Date: 12/25/2023 Sign Out Date: 12/29/2023 Tissue Source: 1:ENDOMETRIUM BIOPSY Final Diagnosis: Endometrium, biopsy: - Insufficient volume of endometrial tissue is present for evaluation of the endometrium. Primary Pathologist:Janis Pack M.D. electronically signed out by: Janis Pack M.D. / ADOLFO Clinical History: Postmenopausal bleeding Gross Description: Labeled EMB . Received is 10 mL of translucent formalin and a brush with insignificant observable tissue. The specimen is sent to cytology for cell block processing and entirely submitted. The specimen may not survive processing. 1-multiple pieces, x2. (HG)* As of December 26, 2023, the specimen processing and staining is performed at [facility], [address] [place] [address] (CLIA#[id number]). Its performance characteristics are as determined by [employer]. Phone #: [phone], On-Call Pathologist: [id number] REASON FOR VISIT HSONO/EB/PMB Medications Medication SIG (Take, Route, Frequency, Duration) Notes Start Date End Date Status metFORMIN HCl 1000 MG 1 tablet with meal s Orally Twice a day Active Rosuvastatin Calcium 10 MG 1 tablet Orally Once a day Active Vitamin B12 1000 MCG 1 tablet Orally Onc e a day Active Lantus for OptiClik Active miSOPROStol 200 MCG 2 Orally night befor e procedure for 1 days 11/24/2023 Active Sotalol HCl 120 MG 1 tablet Orally ever y 12 hrs Active Spironolactone 25 MG 1 tablet Orally Unknown Dose Active Losartan Potassium-HCTZ 100-25 MG 1 tablet Orally Once a day Active Aspirin 81 MG 1 tablet Orally Once a day Active Vitamin D3 1000 UNIT 1 tablet Orally Onc e a day Active Basaglar KwikPen 100 UNIT/ML as directed Subcutaneous Active amLODIPine Besylate 5 MG 1 tablet Orally Once a day Active Jardiance 25 MG 1 tablet Orally Once a day Active Encounters Encounter Location Date Provider Diagnosis Total [address] [address] 12/25/2023 Samantha Rodriguez Postmenopausal bleeding N95.0 Assessments Encounter Date Diagnosis (ICD Code) Assessment Notes Treatment Notes Treatment Clinical Notes Section Notes 12/25/2023 Postmenopausal bleeding (ICD-10 - N95.0) DISCUSSED HSONO RESULTS AND REASSURED PAT THAT NO POLYPS OR THICKENED ENDOMETRIUM WAS NOTED. WILL CALL HER WITH EMB RESULTS. SUSPECT PMB IS DUE TO ATROPHIC ENDOMETRIUM. Plan Of Treatment Treatment Notes Assessment Notes Postmenopausal bleeding DISCUSSED HSONO RESULTS AND REASSURED PAT THAT NO POLYPS OR THICKENED ENDOMETRIUM WAS NOTED. WILL CALL HER WITH EMB RESULTS. SUSPECT PMB IS DUE TO ATROPHIC ENDOMETRIUM. Next Appt Details Follow Up: prn, Reason: Procedure Notes * Category Sub-Category Detail Notes Endometrial biopsy Test: Not indic ated Indication: Post menopausal blee ding Consent: General procedure, i ndications, risks, benefits, alternative treatments, and expected outcomes have been discussed with this patient. She has had an opportunity to ask questions, and all questions have been answered by me. She verbalizes understanding and to the best of my knowledge I feel the patient has been adequately informed and consented. The consent form has been signed. Prep: The patient was plac ed in the dorsal lithotomy position and a pelvic examination performed with the results documented above. A speculum was inserted into the vagina and the cervix cleaned with an antiseptic solution Procedure: A speculum was place d in the vaginal vault. The cervix was visualized and cleansed with an aseptic solution. The cervix was grasped with a tenaculum. Gentle traction was used to align the cervix and uterine canal. A flexible endometrial biopsy instrument was then passed through the cervical canal into the uterine cavity without difficulty. The uterine cavity was sounded to 8 cm. An adequate specimen was obtained and submitted for pathological evaluation and hemostasis achieved. The instruments were removed from the vagina and the patient advised to report bleeding, fever, dizziness, or other symptoms. She tolerated the procedure well. She was discharged from the office in stable condition with follow-up instructions. Follow-up treatment will be determined when the results of the biopsy are available in approximately one week. Sonohysterogram procedure Cervix prepped with aseptic solution , Unable to advance catheter , Tenaculum required/used , Lining thin 4.5 mm , Lining smooth Progress Notes * MARITA SAWANTDOB:0 1955 (68 yo F)Acc No.[id number]:12/25/2023 Patient:?MARITA SAWANT Appointment Provider:?Samantha bedoya M.D. :1955???Age:68 Y???Sex:Female D ate:12/25/2023 Address:[address] [place], [id number] Pcp:ELIANA VELEZ MD Subjective: * Chief Complaints: * ???HSONO/EB/PMB * HPI: ???New/Follow-up Patient Consult:? PAT ENTERED MENOPAUSE AT AGE 57. SHE HAD HAD PINK TO BRIGHT RED VAGINAL STAINING OFF AND ON FOR A FEW YEARS. SHE INFORMED HER PCP BUT SHE WAS NEVER REFERRED BACK TO [place]. ?SHE IS NOT ON HRT AND BLEEDING IS NOT ASSOCIATED WITH SEXUAL ACTIVITY. ?SHE IS HERE FOR HSONO AND EMB. * ROS:?general:?no?chest pain.?no?palpitations.?no?headache.?no?cough.?no?shortness of breath.?no?fever.?no?unexplained weight loss.?no?nausea/vomiting.?no?change in bowel movements.?no blood in stool.?genitourinary complaints?yes,?PMB.?no?skin complaints.? * Medical History:? * Medications:?TakingBasaglar KwikPen 100 UNIT/ML Solution Pen-injector [...] Extended Release 1 tablet Orally Once a daymiSOPROStol 200 MCG Tablet 2 Orally night before procedureTaking Basaglar KwikPen 100 UNIT/ML Solution Pen-injector as [...] Release 1 tablet Orally Once a dayTaking miSOPROStol 200 MCG Tablet 2 Orally night before procedure * Allergies:?Chloramphenicol: rashChloramphenicol: Hives - AllergySimvastatin: rashStatins: Skin Rash - AllergyLatexno[Allergies Verified] Objective: Assessment: * Assessment: 1.?Postmenopausal bleeding - N95.0 (Primary)? Plan: * Treatment: Notes: DISCUSSED HSONO RESULTS AND REASSURED PAT THAT NO POLYPS OR THICKENED ENDOMETRIUM WAS NOTED. WILL CALL HER WITH EMB RESULTS. SUSPECT PMB IS DUE TO ATROPHIC ENDOMETRIUM.?? * Procedures:?Sonohysterogram:?procedure?Cervix prepped with aseptic solution ?, Unable to advance catheter ?, Tenaculum required/used ?, Lining thin 4.5 mm ?, Lining smooth.?Endometrial biopsy :? Test:?Not indicated.?Indication:?Post menopausal bleeding.?Consent:?General procedure, indications, risks, benefits, alternative treatments, and expected outcomes have been discussed with this patient. She has had an opportunity to ask questions, and all questions have been answered by me. She verbalizes understanding and to the best of my knowledge I feel the patient has been adequately informed and consented. The consent form has been signed..?Prep:?The patient was placed in the dorsal lithotomy position and a pelvic examination performed with the results documented above. A speculum was inserted into the vagina and the cervix cleaned with an antiseptic solution.?Procedure:?A speculum was placed in the vaginal vault. The cervix was visualized and cleansed with an aseptic solution. The cervix was grasped with a tenaculum. Gentle traction was used to align the cervix and uterine canal. A flexible endometrial biopsy instrument was then passed through the cervical canal into the uterine cavity without difficulty. The uterine cavity was sounded to?8 cm. An adequate specimen was obtained and submitted for pathological evaluation and hemostasis achieved. The instruments were removed from the vagina and the patient advised to report bleeding, fever, dizziness, or other symptoms. She tolerated the procedure well. She was discharged from the office in stable condition with follow-up instructions. Follow-up treatment will be determined when the results of the biopsy are available in approximately one week..?UNDER STERILE CONDITIONS, EMB WAS PERFORMED AND SPECIMEN WAS SENT TO PATHOLGY. THEN HSONO WAS PERFORMED AND THE LINING WAS SMOOTH AND 4.5 MM THIN. NO POLYPS WERE NOTED. SHE TOLERATED BOTH PROCEDURES WELL. ? * Procedure Codes:? * Follow Up:?prn * Images: Billing Information: * Visit Code:? * Procedure Codes:? * Sign off status: Completed true * Appointment Provider:?Samantha Rodriguez M.D. Date:?12/25/2023 Generated for Tawanda rodriguez/Jarred/Nicoitting on:?12/12/2024 09:29 AM EST History and Physical Notes * HPI (History of Present Illness) Category Sub-Category Detail Notes Category Not es New/Follow-up Patient Consult PAT ENTERED MENOPAUSE AT AGE 57. SHE HAD HAD PINK TO BRIGHT RED VAGINAL STAINING OFF AND ON FOR A FEW YEARS. SHE INFORMED HER PCP BUT SHE WAS NEVER REF[place] BACK [place]. SHE IS NOT ON HRT AND BLEEDING IS NOT ASSOCIATED WITH SEXUAL ACTIVITY. SHE IS HERE FOR HSONO AND EMB.
--- OUTSIDE RECORDS SUMMARY | 2024-12-12 09:30 | XMS_ITS | Patient Health Record ---
Author Organization [employer] [facility] Address [address] [facility] [address] [place] [address] Care Team Providers Care Sternman Name Role Phone ELIANA VELEZ MD Primary Care Provider Robert holly Michael Samantha Unavailable [phone] Allergies Allergen (clinical drug ingredient) Drug/Non Drug Allergy documented on EMR Reaction Allergy Type Onset Date Status Chloramphenicol Hives Drug Allergy A ctive Chloramphenicol rash Drug Allergy A ctive Simvastatin rash Drug Allergy Activ e Latex Unknown Drug Allergy Active Substance with 3-cwpnhob-7-methylgl utaryl-coenzyme A reductase inhibitor mechanism of action (substance) Statins Skin Rash Drug Allergy Active Results Component Value Reference Range Notes SURGICAL PATHOLOGY Reviewed date:12/30/2023 10:42:10 AM Interpretation: Performing Lab:Testing performed or reported by [facility], a Service of [facility], [address] [place] [address] Charles Gee MD, Associate [employer] [facility]# [id number] Notes/Report: Patient Name: MARITA STYLES Lab Patient : 1955 (Age: 68) Collection [...] specimen processing and staining is performed at [facility], [address] [place] [address] (CLIA#[id number]). [facility]. Phone #: [phone], On-Call Pathologist: [id number] Reason For Referral No Information Medications Medication SIG (Take, Route, Frequency, Duration) Notes Start Date End Date Status metFORMIN HCl 1000 MG 1 tablet with meal s Orally Twice a day Active Rosuvastatin Calcium 10 MG 1 tablet Orally Once a day Active Basaglar KwikPen 100 UNIT/ML as directed Subcutaneous Active Vitamin B12 1000 MCG 1 tablet Orally Onc e a day Active Lantus for OptiClik Active amLODIPine Besylate 5 MG 1 tablet Orally Once a day Active Jardiance 25 MG 1 tablet Orally Once a day Active miSOPROStol 200 MCG 2 Orally night befor e procedure for 1 days 11/24/2023 Active Sotalol HCl 120 MG 1 tablet Orally ever y 12 hrs Active Spironolactone 25 MG 1 tablet Orally Unknown Dose Active Vitamin D3 1000 UNIT 1 tablet Orally Onc e a day Active Losartan Potassium-HCTZ 100-25 MG 1 tablet Orally Once a day Active Aspirin 81 MG 1 tablet Orally Once a day Active Social History Tobacco Use: Social History [...] Problem Status W/U Status Risk Notes Problem Postmenopausal atrophic vaginitis (68928876) Postmenopausal atrophic vaginitis (N95.2) Active confirmed Problem Postmenopausal bleeding (84697920) Postmenopausal bleeding (N95.0) Active confirmed Problem Essential hypertension (29365231) Essential (primary) hypertension (I10) Active confirmed Problem Disorder due to type 2 diabetes mellitus (557681467) Type 2 diabetes mellitus with unspecified complications (E11.8) Active confirmed Problem Asthma (896473826) Other asthma (J45.998) Active confirmed Problem Cystocele (162532710) Cystocele, unspecified (N81.10) Active confirmed Problem SI - Stress incontinence (04969469) Stress incontinence (female) (male) (N39.3) Active confirmed Encounters Encounter Location Date Provider Diagnosis Total [address] [place] [address] 12/25/2023 Samantha Rodriguez Postmenopausal bleeding N95.0 Assessments Encounter Date Diagnosis (ICD Code) Assessment Notes Treatment Notes Treatment Clinical Notes Section Notes 12/25/2023 Postmenopausal bleeding (ICD-10 - N95.0) DISCUSSED HSONO RESULTS AND REASSURED PAT THAT NO POLYPS OR THICKENED ENDOMETRIUM WAS NOTED. WILL CALL HER WITH EMB RESULTS. SUSPECT PMB IS DUE TO ATROPHIC ENDOMETRIUM. Plan Of Treatment Pending Test Test Name Order Date Sonohysterogram 11/24/2023 MAMMOGRAM, SCREENING 11/24/2023 Ultrasound : Pelvic 10/31/2016 ENDOMETRIAL BX 11/24/2023 THIN PREP,HPV,DAVID IF HPV+ (>29YR)(SCRN) 10/31/2016 BONE DENSITY 10/31/2016 MM Digital Mammo Screening 10/31/2016 MM Digital Mammo Screening 11/24/2023 Insurance Providers Payer Name Payer Address Payer Phone Subscriber Number Group Number Insured Name Patient Relationship to Insured Coverage Start Date Coverage End Date MEDICARE [address] [place], [place] [id number] MARITA SOLIS Self - patient is the insured [facility] [address] [place] [address] [id number] MARITA SOLIS Self - patient is the insured Medical (General) History Medical History History ICD Code Hyperlipidemia Diabetes Thyroid Disease Heart -RV Dysplasia Other asthma Essential (primary) hypertension Type 2 diabetes mellitus with unspecifie d complications Disorder of thyroid, unspecified Surgical History Surgery Date(Month/Year) Bilateral Subtotal Thyroidectomy 1985 Bilateral Tubal Ligation 1985 Lt Breast Lumpectomy - Benign Removal Ganglion Cyst ICD Placement (Implantable Cardioverter Defibrillator) 2001 Hospitalization History Reason Date(Month/Year) See Surgical Hx 4 Vaginal Deliveries
[2024-12-12 11:03] LABS: Estimated Average Glucose 200 mg/dL; Hemoglobin A1c % 8.6 % (<6.0); Total Hemoglobin (HGBA1C) 3720.0438 umol/L
[2024-12-12 11:32] LABS: Alanine Aminotransferase 21 U/L (0-31); Anion Gap 13 (12-20); Aspartate Amino Transferase 20 U/L (5-31); Blood Urea Nitrogen 17 mg/dL (9-16); Calcium 9.7 mg/dL (8.4-10.2); Carbon Dioxide 25 mmol/L (22-29); Chloride 110 mmol/L (96-108); Cholesterol 143 mg/dL (<200); Estimated Glomerular Filt Rate > 60; Free T4 (Free Thyroxine) 1.13 ng/dL (0.71-1.85); Glucose Fasting 119 mg/dL (60-99); HDL Cholesterol 45 mg/dL (>40); LDL Cholesterol Calculated 83 mg/dL (<100); Potassium 3.9 mmol/L (3.3-5.1); Sodium 144 mmol/L (135-145); Thyroid Stimulating Hormone 0.27 uIU/mL (0.32-4.0); Triglycerides 79 mg/dL (<150); Vitamin D 25-OH Total 58.4 ng/mL (>30)
[2024-12-12 12:24] LABS: Creatinine Urine 103.98 mg/dL; Microalbum/Creatinine Ratio Ur 63.4 ug/mg cr (<30)
== END 2024-12-12 08:59 | disposition home or self-care (01) ==
LOC: HO.HMGCLDS 08:58
PROVIDERS: PCP Internal Medicine; Visit Provider Internal Medicine
DX: E11.65 Type 2 diabetes mellitus with hyperglycemia (principal); Z79.4 Long term (current) use of insulin; I10 Essential (primary) hypertension; E78.5 Hyperlipidemia, unspecified; E03.9 Hypothyroidism, unspecified; Z78.0 Asymptomatic menopausal state
CPT/HCPCS: 36415; 80048; 80061; 82043; 82306; 82570; 83036; 84439; 84443; 84450; 84460

== ENCOUNTER 2024-12-19 12:36 | Outpatient (AMB) | payer MEDICARE, OTHER, SELFPAY ==
[2024-12-19 13:29] VITALS: BP 114/80; PULSE 67; RESP 15; TEMP 36.8; O2SAT 99; BMI 32.8
--- NOTE | 2024-12-19 13:29 | MHC.PC.OV ---
Vital Signs 12/19/24 13:29 Height 5 ft 5 in Weight 197 lb BMI 32.8 BP 114/80 Blood Pressure Location Lt brachial Position Sitting Respiration 15 Pulse 67 Pulse Source Pulse Oximeter Temp 98.2 F Temp Source Oral Pulse Oximetry (%) 99 Oxygen Delivery Method Room Air Intake Visit Reasons: Annual Physical/Secondary covers Intake Note: Pt is here today for her PE: last mammoram 03/19/23, bone density scan 03/19/23 Allergies chloramphenicol Allergy (Unknown, Verified 12/19/24 13:33) rash pravastatin Allergy (Unknown, Verified 12/19/24 13:33) hives ciprofloxacin Adverse Reaction (Verified 12/19/24 13:33) burning sensation in ears zinc Adverse Reaction (Verified 12/19/24 13:33) hives latex Allergy (Unknown, Uncoded 12/19/24 13:33) rash Medication List - Last Reconciled 12/19/24 by Dede Perkins MD Admelog SoloStar U-100 Insulin (insulin lispro) 15 units (0.15 mL) subcut BID 3 months NS Advair HFA 115-21 mcg/actuation (fluticasone propion-salmeterol) 2 puffs inhalation Q12H NS albuterol sulfate 2.5 mg (3 mL) inhalation Q6H PRN albuterol sulfate 90 mcg/actuation (Ventolin HFA) 2 puffs inhalation Q6H PRN amlodipine 5 mg PO DAILY aspirin (Adult Low Dose Aspirin) 81 mg PO DAILY Basaglar KwikPen U-100 Insulin (insulin glargine) 45 units (0.45 mL) subcut QAM 3 months NS cholecalciferol (vitamin D3) 50 mcg PO DAILY Dulera 100-5 mcg/actuation (mometasone-formoterol) 2 puffs inhalation Q12H NS empagliflozin 25 mg PO DAILY [Glucosamine PO] levothyroxine 88 mcg PO QAM losartan 100 mg PO DAILY lutein 20 mg PO DAILY magnesium citrate,mag oxide mg PO metformin 1,000 mg PO BID omeprazole 20 mg PO DAILY rosuvastatin 10 mg PO DAILY sotalol 120 mg PO BID spironolactone (Aldactone) 25 mg PO DAILY tiotropium bromide (Spiriva with HandiHaler) 1 cap inhalation DAILY [Tumeric PO] vitamin B complex (B Complex-Vitamin B12 tablet) 1 tab PO DAILY Tobacco use date assessed: 12/19/24 Fall risk assessment: No Falls in past year Last assessed Fall Risk: 12/19/24 Dental Screening Dental Screen Date: 12/19/24 Did you have a dental visit in the last 12 months?: Yes Did you have a dental problem in the last 6 months where you did not have access to dental care?: No Was dental information given to patient?: Patient has dentist HPI Annual Physical/Secondary covers HPI Details 69 year-old lady with history of diabetes mellitus, dyslipidemia, hypertension , osteoarthritis, asthma, and hypothyroidism, here today for her physical exam. She is overdue for her breast cancer screening and screening for osteoporosis, both procedures done in 2022. She is overdue for her screening colonoscopy last 1 done in 2007 , and a referral to GI was made in 2021 but not done, likely due to the pandemic. She is currently being followed by Pulmonary for a pulmonary nodule serial CT scans ordered. She just returned back from the [facility] and has been off her diet while there. Last hemoglobin A1c obtained 11/2024 is at 8.6%, higher than last check. Her thyroid levels and fasting lipids however are within normal limits. [facility] Medical History (Updated 12/26/24 @ 01:04 by Dede Perkins MD) Cataract (lens) fragments in eye following cataract surgery, bilateral Nodule of apex of right lung Osteoarthritis of right knee Loss of voice Asthma, mild intermittent Eczema Shoulder pain, left Diabetes mellitus with hyperglycemia, with long-term current use of insulin Essential hypertension Dyslipidemia Acquired hypothyroidism Surgical History History of carpal tunnel release History of lumpectomy of left breast H/O tubal ligation H/O thyroidectomy Family History Sister Diabetes mellitus Coronary artery disease Dyslipidemia Social History Housing: House Alcohol intake: never Patient Tobacco Use Status: Never used Tobacco e-Cigarette/Vaping Use: Never Used Second Hand Smoke Exposure: No service: No Current occupational status: retired Cognitive needs: No Hearing needs: No Vision needs: Yes Questionnaire PHQ-9 Over the last 2 weeks, how often have you been bothered by any of the following problems? 1. Little interest or pleasure in doing things: not at all 2. Feeling down, depressed, or hopeless: not at all 3. Trouble falling or staying asleep, or sleeping too much: not at all 4. Feeling tired or having little energy: not at all 5. Poor appetite or overeating: not at all 6. Feeling bad about yourself - or that you are a failure or have let yourself or your family down: not at all 7. Trouble concentrating on things, such as reading the newspaper or watching television: not at all 8. Moving or speaking so slowly that other people could have noticed. Or the opposite - being so fidgety or restless that you have been moving around a lot more than usual: not at all 9. Thoughts that you would be better off or of hurting yourself in some way: not at all Total score: 0 Depression Screening Interpretation: Negative Depression Screening Done: Yes 37456 - PHQ-9 Billing: Yes Source: Developed by Drs. Kurt Tavares, Gissel Maravilla, Ben Cheung and colleagues, with an educational lili from [employer] Thrive Questionnaire Date Thrive assessed: 12/19/24 I am a: Patient What is your living situation today?: I have a steady place to live Within the past 12 months, did the food you bought not last and you didn't have the money to get more?: Never true Within the past 12 months, did you worry whether your food would run out before you got money to buy more?: Never true Do you have trouble paying for medicines?: No Do you have trouble getting transportation to medical appointments?: No Do you have trouble paying your heating and electricity bill?: No Do you have trouble taking care of your child, family member or friend?: No Do you have trouble with day-to-day activities such as bathing, preparing meals, shopping, managing finances, etc.?: No Are you currently unemployed and looking for a job?: No Are you interested in more education?: No Please select the resources that you would like help with: None Currently or been in a relationship where the following occur: No concerns reported THRIVE Score: 0 AUDIT C Alcohol Use Questionnaire (AUDIT-C) 1. How often do you have a drink containing alcohol?: Never Total Score: 0 BRAYAN-7 AMB Questionnaire BRAYAN-7 Date BRAYAN - 7 assessed: 12/19/24 Feeling nervous, anxious, or on edge: 0 = Not at all Not being able to stop or control worryin = Not at all Worrying too much about different things: 0 = Not at all Trouble relaxin = Not at all Being so restless that it is hard to sit still: 0 = Not at all Becoming easily annoyed or irritable: 0 = Not at all Feeling afraid as if something awful might happen: 0 = Not at all Total BRAYAN-7 score (0-4 normal; 5-9 mild; 10-14 moderate; 15-21 severe): 0 Source: Developed by Drs. Kurt Tavares, Gissel Maravilla, Ben Cheung and colleagues, with an educational lili from [employer] BRAYAN-7 Assessment Billing BRAYAN-7 Assessment Tool: BRAYAN-7 Assessment 24487 Review of Systems Const Denies daytime sleepiness, Denies excessive sweating, Denies fatigue, Denies fever(s), Denies lethargy, Denies malaise, Denies night sweats, Denies snoring and Denies weight loss Eyes Details: Up-to-date with her diabetes retinopathy screening, sees [facility], last seen February 2024 Reports no additional complaints ENT Denies nasal congestion, Denies post nasal drip, Denies sinus pain, Denies sinus pressure and Denies other ( Thrush) Card Denies chest pain, Denies pedal edema, Denies dyspnea, Denies orthopnea and Denies paroxysmal nocturnal dyspnea Resp Denies cough, Denies hemoptysis, Denies excessive phlegm production, Denies dyspnea, Denies snoring and Denies wheezing GI Denies abdominal pain and Denies heartburn Reports no additional complaints Musc Denies myalgias, Denies arthralgias and Denies joint swelling Skin/Breast Denies rash Neuro Denies memory loss, Denies seizure-like activity and Denies Sensory deficit (Neuro) Psych Denies abnormal sleep pattern, Denies anxiety and Denies memory loss Endo Denies excessive sweating, Denies fatigue and Denies heat intolerance Micky/Lymph Denies easy bruising Aller/Immun Denies seasonal rhinorrhea and Denies wheezing Physical exam (Primary Care) Vital Signs: Last Vital Signs Temp 98.2 F 12/19/24 13:29 Pulse 67 12/19/24 13:29 Resp 15 12/19/24 13:29 BP 114/80 12/19/24 13:29 Pulse Ox 99 12/19/24 13:29 Oxygen Delivery Method Room Air 12/19/24 13:29 BMI result Body Mass Index 32.8 Tobacco/Smoking Status: Tobacco use Status Tobacco use date assessed 12/19/24 12/19/24 13:34 Patient Tobacco Use Status Never used Tobacco 12/19/24 13:34 e-Cigarette/Vaping Use Never Used 12/19/24 13:34 PHQ-9: PHQ-9 Score PHQ-9: Total score 0 12/19/24 13:40 Depression Screening Interpretation: Negative Thrive Assessment: Date of Thrive Assessment Date Thrive assessed 12/19/24 12/19/24 13:34 Currently or been in a relationship where the following occur: No concerns reported Const Other: Alert oriented x3, no acute distress noted ambulatory normal gait HENUT General nose exam: Normal external nose present and No nasal discharge present Mouth: oropharynx normal and moist mucous membranes Eyes General: appearance normal, both eyes and all related structures Neck Other: Neck is supple with no lymphadenopathy, thyroid gland nonpalpable Resp Effort & Inspection: normal respiratory effort and able to speak in complete sentences Auscultation: clear to auscultation bilaterally Cardio Other: S1-S2 present regular rate and rhythm GI Other: Obese, soft, non tender to palpation, normal bowel sounds, no mass palpated Other: Obese , normal bowel sounds, soft, nontender to palpation General: Yes no CVA tenderness Back/Spine/Pelvis Back: no CVA tenderness and No back tenderness Skin General skin exam: no rashes or lesions noted Neuro General: gait normal, tone normal, moves all extremities, Normal light touch and pain sensation, no focal motor deficits and CN's II-XI intact bilaterally Sensory Exam: No Sensory deficit (Neuro) Extrem Other: Mild plantar calluses noted in both feet, intact pulses General: Yes full ROM, Yes no pedal edema and Yes normal gait Psych Appearance: grossly normal Mental Status: mental status grossly normal Speech and movement: Normal speech and movement present Affect: normal affect Attitude: cooperative Thought process: Normal thought process present Thought content: Normal thought content present Results Reviewed Results Reviewed: wale: Victoria Anderson Luisito Barron Age/Sex: 69/F [facility] 1955 [id number] [id number] Attend Dr: Dede Perkins MD Re12/12/24 Status: DEP REF [facility] Disch: SPEC : [id number] LASHONDA: 12/12/24 STATUS: COMP REQ : [id number] RECD: 12/12/24-[address]: Dede Perkins MD COMP: 12/12/24 ENTERED: 12/12/[address]: ORDERED: Met Prof Fast, AST, ALT, Lipid Panel, Vitamin D 25-OH, Free T4, TSH Test Result Flag Reference Sodium 144 135-145 mmol/L Potassium 3.9 3.3-5.1 mmol/L CL 110 H 96-108 mmol/L CO2 25 22-29 mmol/L Gap 13 12-20 BUN 17 H 9-16 mg/dL Creat 0.80 0.5-1.4 mg/dL eGFR > 60 Chronic Kidney Disease: Estimated GFR < 60 mL/min/1.73m2 Severe Kidney Disease: Estimated GFR < 15 mL/min/1.73m2 FBS 119 H 60-99 mg/dL A fasting glucose from 100-125 mg/dl is considered impaired (pre-diabetes). CA 9.7 8.4-10.2 mg/dL AST (GOT) 20 5-31 U/L ALT (GPT) 21 0-31 U/L Triglyceride 79 <150 mg/dL Desirable Triglyceride: less than 150 mg/dL Borderline High Triglyceride 150-199 mg/dL High Triglyceride: 200-499 mg/dL Very High Triglyceride: greater than or equal to 5OO mg/dL Cholesterol 143 <200 mg/dL Desirable Cholesterol: less than 200 mg/dL Borderline High Cholesterol: 200-239 mg/dL High Cholesterol: greater than 239 mg/dL LDL Calculated 83 <100 mg/dL Desirable LDL: less than 100 mg/dL Near Optimal/Above Optimal LDL: 110-129 mg/dL Borderline High LDL: 130-159 mg/dL High LDL: 160-189 mg/dL Very High LDL: greater than or equal to 190 mg/dL HDL 45 >40 mg/dL Desirable HDL: greater than 40 mg/dL Note: This HDL assay may give artificially low results in patients with liver disease. Vit D 25-OH Tot 58.4 >30 ng/mL Health Based Reference Values* < 20 ng/mL Deficient 20-30 ng/mL Insufficient > 30 ng/mL Sufficient *Genet MCCRACKEN. N Engl J Med. 2007;357:266-280 Care must be taken in interpreting Vitamin D results from different laboratories and methodologies. Published data demonstrated that results from patients undergoing hemodialysis may show a negative bias when tested with various automated 25-OH vitamin D assays when compared to LC-MS/MS. When testing samples from patients whose predominant form of Vitamin D is Vitamin D2, such as patients receiving Vitamin D2 supplementation, results that are subtherapeutic should be confirmed with another method such as LC-MS/MS. Free T4 1.13 0.71-1.85 ng/dL TSH 3rd Gen. 0.27 L 0.32-4.0 uIU/mL TSH 3rd Generation ([facility]) Laboratory Tests 03/01/24 12/12/24 12/12/24 09:10 09:03 09:20 Estimat Average Glucose 163 200 Hemoglobin A1c % 7.3 H 8.6 H Urine Creatinine 103.98 Urine Microalbumin 66.0 Microalb/Creat Ratio 63.4 H Coding Level of Care Code Est Pt Prev Care >65y(25012) Diagnoses Annual visit for general adult medical examination with abnormal findings Z00.01 Type 2 diabetes mellitus with hyperglycemia, with long-term current use of insulin E11.65; Z79.4 Diabetes mellitus type: type 2 Acquired hypothyroidism E03.9 Dyslipidemia E78.5 Essential hypertension I10 Mild intermittent asthma without complication J45.20 Asthma complication type: uncomplicated Nodule of apex of right lung R91.1 Additional Codes PHQ-9 - 82010 - PHQ-9 Billing: Yes ([id number]) BRAYAN-7 Assessment Billing - BRAYAN-7 Assessment Tool: BRAYAN-7 Assessment 05750 ([id number]) Assessment & Plan Assessment & Plan (1) Annual visit for general adult medical examination with abnormal findings: Code(s): Z00.01 - Encounter for general adult medical examination with abnormal findings Plan: Latest fasting lab results reviewed with patient.. Recommended dental visit every 6 months and annual eye exams, [facility]. Take adequate calcium in diet and vitamin-D 3 at 2000 IU per cap once a day, in addition to weight-bearing exercises to help maintain good muscle tone and weight control. Instructed to do self-breast exam, and recommended to get yearly mammogram, ordered together with her bone density scan. Referred back to GI Clinic for a screening colonoscopy which is overdue. She is up-to-date with her pneumonia vaccination, shingles vaccine and Tdap, reminded to get her COVID booster and yearly flu vaccine. (2) Diabetes mellitus with hyperglycemia, with long-term current use of insulin: Code(s): E11.65 - Type 2 diabetes mellitus with hyperglycemia; Z79.4 - exterminator helper (current) use of insulin Category: Medical Qualifiers: Diabetes mellitus type: type 2 Qualified Code(s): E11.65 - Type 2 diabetes mellitus with hyperglycemia; Z79.4 - exterminator helper (current) use of insulin Plan: Blue control diabetes mellitus noted, with latest hemoglobin A1c at 8.6%. Continued on metformin a 1000 mg 1 tablet twice a day, empagliflozin 25 mg daily, Basaglar insulin 45 units daily and Admelog 15 units twice a day, and added Ozempic 0.25 mg injected subcutaneously once a week. Monitor blood sugar at least twice a day before meals and keep a log of the readings. Discussed possible side effects of Ozempic which may include nausea, increase risk or gallops stones and pancreatitis, increased risk for gastroparesis and sudden visual changes. Will see her back for follow-up and of 02/2025 after repeat fasting labs done (3) Acquired hypothyroidism: Code(s): E03.9 - Hypothyroidism, unspecified Category: Medical Plan: Thyroid levels are within normal limits, continued with current dose of levothyroxine at 88 mcg daily in a.m. (4) Dyslipidemia: Code(s): E78.5 - Hyperlipidemia, unspecified Category: Medical Plan: Reviewed recent fasting lipid profile with patient with levels within normal limits . Continue rosuvastatin 10 mg daily , in addition to adherence to low-cholesterol diet and regular exercise, at least 30 minutes 3 to 4 times a week. Advised patient to make healthy food choices, eat more fruits, vegetables, whole grains, wild caught fish and low-fat dairy. Limit amount of meat and fried or fatty food products, as well as processed foods and fast foods. Follow-up scheduled with repeat fasting lipid panel in february 2025 (5) Essential hypertension: Code(s): I10 - Essential (primary) hypertension Category: Medical Plan: Blood pressure at goal of less than 130/80. Continue with current medication. Reinforced importance of following a low sodium diet, getting regular exercise, and lowering stress levels. (6) Asthma, mild intermittent: Code(s): J45.20 - Mild intermittent asthma, uncomplicated Category: Medical Qualifiers: Asthma complication type: uncomplicated Qualified Code(s): J45.20 - Mild intermittent asthma, uncomplicated Plan: Followed by Pulmonary (7) Nodule of apex of right lung: Code(s): R91.1 - Solitary pulmonary nodule Category: Medical Plan: Followed by Pulmonary Orders: Orders Hemoglobin A1c 03/04/25 E03.9 - Hypothyroidism, unspecified, E11.65 - Type 2 diabetes mellitus with hyperglycemia, E78.5 - Hyperlipidemia, unspecified, I10 - Essential (primary) hypertension, Z79.4 - halfway (current) use of insulin Free T4 (Free Thyroxine) 03/04/25 E03.9 - Hypothyroidism, unspecified, E11.65 - Type 2 diabetes mellitus with hyperglycemia, E78.5 - Hyperlipidemia, unspecified, I10 - Essential (primary) hypertension, Z79.4 - exterminator helper (current) use of insulin MM tomosynthesis screening BI Today Z12.31 - Encounter for screening mammogram for malignant neoplasm of breast, Z78.0 - Asymptomatic menopausal state Alanine Aminotransferase 03/04/25 E03.9 - Hypothyroidism, unspecified, E11.65 - Type 2 diabetes mellitus with hyperglycemia, E78.5 - Hyperlipidemia, unspecified, I10 - Essential (primary) hypertension, Z79.4 - exterminator helper (current) use of insulin Aspartate Amino Transferase 03/04/25 E03.9 - Hypothyroidism, unspecified, E11.65 - Type 2 diabetes mellitus with hyperglycemia, E78.5 - Hyperlipidemia, unspecified, I10 - Essential (primary) hypertension, Z79.4 - halfway (current) use of insulin Basic Metabolic Panel Fasting 03/04/25 E03.9 - Hypothyroidism, unspecified, E11.65 - Type 2 diabetes mellitus with hyperglycemia, E78.5 - Hyperlipidemia, unspecified, I10 - Essential (primary) hypertension, Z79.4 - exterminator helper (current) use of insulin Lipid Panel 03/04/25 E03.9 - Hypothyroidism, unspecified, E11.65 - Type 2 diabetes mellitus with hyperglycemia, E78.5 - Hyperlipidemia, unspecified, I10 - Essential (primary) hypertension, Z79.4 - exterminator helper (current) use of insulin Thyroid Stimulating Hormone 03/04/25 E03.9 - Hypothyroidism, unspecified, E11.65 - Type 2 diabetes mellitus with hyperglycemia, E78.5 - Hyperlipidemia, unspecified, I10 - Essential (primary) hypertension, Z79.4 - exterminator helper (current) use of insulin XR DEXA axial skeleton Today Z12.31 - Encounter for screening mammogram for malignant neoplasm of breast, Z78.0 - Asymptomatic menopausal state Referrals Gastroenterology Referral Z12.11 - Encounter for screening for malignant neoplasm of colon Medications: New Ozempic (semaglutide) for 4 weeks 0.25 mg (0.368 mL) subcut QWEEK 30 days 3 mL 4RF NS E11.65 - Type 2 diabetes mellitus with hyperglycemia, Z79.4 - exterminator helper (current) use of insulin
--- OUTSIDE RECORDS SUMMARY | 2024-12-19 14:43 | XMS_ITS | Clinical Summary ---
Author Organization [address] [place] [address] [place] [phone] Phone Care Team Providers Care Director Clinical Information Services Name Role Phone Dede Perkins MD Primary [...] Encounters Date Type Department Care Team Description 12/19/2024 8:30 AM EST Ancillary Procedure [facility] [address] [place] [address] Encounter for adjustment or management of cardiac device 11/01/2024 Telephone [facility] [address] [facility] [address] [place] [address] Daniel Connors MD 10/26/2024 Telephone [facility] [address] [facility] [address] [place] [address] Daniel Connors MD from Last 3 Months [...] Upcoming Encounters Date Type Department Care Team (Late st Contact Info) Description 12/19/2025 9:30 AM EST Ancillary Procedure [facility] [address] [facility] [address] [place] [address] Health Maintenance Due Date Last Done Comments Breast Cancer Screening 1955 Pneumococcal Vaccine: 50+ Years (2 of 2 - PCV) 01/02/2017 01/03/2016 Cholesterol Screening (Lipid Panel) 09/27/2022 Colorectal Cancer Screening: Colonoscopy 09/27/2022 Depression Screening 09/27/2022 Falls Risk Assessment 09/27/2022 Hepatitis C Screening 09/27/2022 Medicare Annual Wellness Visit 09/27/2022 Osteoporosis Screening (Bone Density Screening) 09/27/2022 Social Influencers of Health Screening 09/27/2022 COVID-19 Vaccine ( season) 2024 05/12/2022, 10/25/2021, 04/22/2021, Additional history exists Influenza Vaccine (#1) 2024 , 07/31/2022, 08/20/2021, Additional history exists Hypertension/CHF/CAD Annual BMP Blood Test 05/11/2025 05/11/2024, 05/11/2024 DTaP,Tdap,and Td Vaccines (2 - Td or Tdap) 01/02/2026 01/03/2016 Zoster Vaccines Completed 07/21/2023, 05/12/2023 RSV Immunization Patients 60+ Years Old Completed 10/15/2023 HIB Vaccines Aged Out No longer eligi [...] 20 months Aged Out No longer eligible based on [...] Annual BMP Blood Test Abstracted Historical Provider MD HEALTH MAINTENANCE Final Result from Last 3 Months or Most Recently Relevant to Health Maintenance Insurance MEDICARE [facility] Care Teams Director Clinical Information Services Relationship Specialty Start Date End Date Dede Perkins MD [address] [place], Located Within [facility] JEANINE Gallardo [address] PCP - General 10/04/12
--- OUTSIDE RECORDS SUMMARY | 2024-12-19 14:43 | XMS_ITS | Encounter Summary ---
Author Organization [facility] Address [address] [place] [address] Care Team Providers Care Systems Manager Name Role Phone Dede Perkins MD Primary Care Provider Encounter Details Date Type Department Care Team (Latest Contact Info) Description 12/19/2024 8:30 AM EST Ancillary Procedure [facility] - [address] [place] [phone] Encounter for adjustment or management of cardiac device Social History Tobacco Use Types Packs/Day Years Used Date Smoking Tobacco: Never Smokeless Tobacco: Never Alcohol Use Standard Drinks/Week Comments Not Currently 0 (1 standard drink = 0.6 oz pur e alcohol) Comments Unknown Sex and Gender Information Value Date Recorded Sex Assigned at Not on file Legal Sex Female 12:15 AM EST Gender Identity Not on file Sexual Orientation Not on file documented as of this encounter Plan of Treatment Upcoming Encounters Date Type Department Care Team (Late st Contact Info) Description 12/19/2025 9:30 AM EST Ancillary Procedure [facility] Cardiology [facility] - [address] [place] [address] Pending Results Name Type Priority Associated Diagnoses Date /Time Cardiac device check - In Clinic Implantable Cardiac Device Routine Encounter for adjustment or management of cardiac device 12/19/2024 8:36 AM EST Scheduled Orders Name Type Priority Associated Diagnoses Order Schedule Cardiac device check - In Clinic Implantable Cardiac Device Routine Encounter for adjustment or management of cardiac device 1 Occurrences starting 08/04/2024 until 08/04/2026 documented as of this encounter Visit Diagnoses Diagnosis Encounter for adjustment or management of cardiac device Encounter for adjustment or management of cardiac device documented in this encounter Care Teams Systems Manager Relationship Specialty Start Date End Date Dede Perkins MD [address] [place] [address] PCP - General 10/04/12 documented as of this encounter
== END 2024-12-19 14:02 | disposition home or self-care (01) ==
PROVIDERS: PCP Internal Medicine; Visit Provider Internal Medicine
DX: Z00.01 Encounter for general adult medical examination with abnormal findings (principal); E11.65 Type 2 diabetes mellitus with hyperglycemia; Z79.4 Long term (current) use of insulin; E03.9 Hypothyroidism, unspecified; E78.5 Hyperlipidemia, unspecified; I10 Essential (primary) hypertension; J45.20 Mild intermittent asthma, uncomplicated; R91.1 Solitary pulmonary nodule

== ENCOUNTER → 2024-12-19 12:36 | Outpatient (BNVA) | payer MEDICARE, OTHER, SELFPAY | PROVIDERS: PCP Internal Medicine; Visit Provider Internal Medicine | DX: Z00.01 Encounter for general adult medical examination with abnormal findings (principal); E11.65 Type 2 diabetes mellitus with hyperglycemia; Z79.4 Long term (current) use of insulin; E03.9 Hypothyroidism, unspecified; E78.5 Hyperlipidemia, unspecified; I10 Essential (primary) hypertension; J45.20 Mild intermittent asthma, uncomplicated; R91.1 Solitary pulmonary nodule | CPT/HCPCS: 96127; 99397 ==

== ENCOUNTER 2025-01-05 07:14 | Outpatient (REF) | payer MEDICARE, OTHER, SELFPAY ==
--- NOTE | ~2025-01-05 | CT_ITS ---
CLINICAL HISTORY: R91.1 - Solitary pulmonary nodule CT chest without contrast Comparison: None Findings: The heart size is normal. There is coronary arterial calcification. The visualized thyroid and mediastinum are otherwise unremarkable. There is an irregular right apical upper lobe 1.0 x 0.4 cm lesion. The lungs are otherwise clear. There is a gallstone. The visualized upper abdomen is otherwise unremarkable. The bones are intact. IMPRESSION: 1. Apical segment right upper lobe pulmonary lesion. Clinically appropriate follow-up possibly beginning with PET-CT, recommended. This document has been electronically signed by: Anuel Ibarra MD on 01/06/2025 07:17:18
--- OUTSIDE RECORDS SUMMARY | 2025-01-05 07:17 | XMS_ITS | Encounter Summary ---
Author Organization [facility] Address [address] [place] [address] Care Team Providers Care Government Affairs Director Name Role Phone Dede Perkins MD Primary Care Provider [phone] Encounter Details Date Type Department Care Team (Latest Contact Info) Description 12/19/2024 8:30 AM EST Ancillary Procedure [facility] Cardiology [facility] - [address] [place] [phone] Encounter for adjustment or management of cardiac [...] Description 12/19/2025 9:30 AM EST Ancillary Procedure [facility] Cardiology [facility] - [address] [place] [address] documented as of this encounter Procedures Procedure Name Priority Date/Time Associated Diagnosis Comments CARDIAC DEVICE CHECK- IN CLINIC- [facility] Routine 12/19/2024 8:36 AM EST Encounter for adjustment or management of cardiac device documented in this encounter Results * CARDIAC DEVICE CHECK- IN CLINIC- [facility] (12/19/2024 8:36 AM EST) Date Time Interrogation Session [id number] CV DEVICE CHECK Implantable Pulse Generator [facility] [employer] CV DEVICE CHECK Implantable Pulse Generator Type ICD CV DEVICE CHECK Implantable Pulse Generator Model Kofi VR 1411-36C CV DEVICE CHECK Implantable Pulse Generator Serial Number [id number] CV DEVICE CHECK Implantable Pulse Generator Implant Date [id number] CV DEVICE CHECK Battery Status Middle of Service CV DEVICE CHECK Doug Statistic RV Percent Paced 0.00 CV DEVICE CHECK Lead Channel Sensing Intrinsic Amplitude 5.600 CV DEVICE CHECK Lead Channel Setting Sensing Sensitivity 0.50 CV DEVICE CHECK Lead Channel Impedance Value 1,075 CV DEVICE CHECK Lead Channel Pacing Threshold Amplitude 1.250 CV DEVICE CHECK Lead Channel Pacing Threshold Pulse Width 0.5 CV DEVICE CHECK Lead Channel RV Pacing Threshold Date 2024-12-19 CV DEVICE CHECK Lead Channel Setting Pacing Amplitude 1.250 CV DEVICE CHECK Lead Channel Setting Pacing Pulse Width 0.5 CV DEVICE CHECK Doug Setting Mode (NBG Code) VVI CV DEVICE CHECK Doug Setting Lower Rate Limit 40 CV DEVICE CHECK Doug Setting Maximum Sensor Rate 110 CV DEVICE CHECK Zone Setting Type Category VF CV DEVICE CHECK Rate 207 CV DEVICE CHECK Therapies ATP While Charging, 25J, 30J, 36J CV DEVICE CHECK Zone Setting Status On CV DEVICE CHECK Zone ID 1 CV DEVICE CHECK Zone Setting Type Category VT-1 CV DEVICE CHECK Rate 150 CV DEVICE CHECK Zone Setting Status On CV DEVICE CHECK Zone ID 2 CV DEVICE CHECK Zone Setting Type Category VT-2 CV DEVICE CHECK Rate 176 CV DEVICE CHECK Therapies 3 x Scan + ATP, 15J, 30J, 36J CV DEVICE CHECK Zone Setting Status On CV DEVICE CHECK Zone ID 3 CV DEVICE CHECK Date of Service 2025-12-26 CV DEVICE CHECK Anatomical Region Laterality Modality Device Interroga tion 12/19/2024 Impressions 12/22/2024 9:54 AM EST Normal In-Office: No Events * Normal Device Function * Alerts or events: No HVR alerts * Battery: MOS, 3.60 yrs * Sensing, impedance and thresholds reviewed and tested * Presenting Rhythm: VS 70 bpm * Heart Rate Histograms reviewed * Pacing and Detection Parameters were evaluated Heart Failure Diagnostic: Stable * Heart failure diagnostics assessed through the device * Status: Stable * No overt HF present Narrative Procedure Note Daniel Connors MD - 12/22/2024 IMPRESSION: Normal In-Office: No Events * Normal Device Function * Alerts or events: No HVR alerts * Battery: MOS, 3.60 yrs * Sensing, impedance and thresholds reviewed and tested * Presenting Rhythm: VS 70 bpm * Heart Rate Histograms reviewed * Pacing and Detection Parameters were evaluated Heart Failure Diagnostic: Stable * Heart failure diagnostics assessed through the device * Status: Stable * No overt HF present us Order Referral Cardiovascular CV IMPLANTABLE CAR DIAC DEVICE PROCEDURES Final Result documented in this encounter Visit Diagnoses Diagnosis Encounter for adjustment or management of cardiac device Encounter for adjustment or management of cardiac device documented in this encounter Care Teams Government Affairs Director Relationship Specialty Start Date End Date Dede Perkins MD [address] [place] [address] PCP - General 10/04/12 documented as of this encounter
--- OUTSIDE RECORDS SUMMARY | 2025-01-05 07:17 | XMS_ITS | Clinical Summary ---
Author Organization [address] [place] [address] [place] [phone] Phone Care Team Providers Care Sld Teacher Name Role Phone Dede Perkins MD Primary [...] cardiac arrest in documented ventricular tachycardia. [employer] ICD implanted for secondary prevention. Diagnosis [...] Description 12/19/2024 8:30 AM EST Ancillary Procedure [facility] - [facility] [address] [place] [address] Encounter for adjustment or management of cardiac device 11/01/2024 Telephone [facility] - [facility] [address] [facility] [address] [place] [address] Daniel Connors MD 10/26/2024 Telephone [facility] - [facility] [address] [facility] [address] [place] [address] Daniel Connors MD from Last 3 Months [...] Description 12/19/2025 9:30 AM EST Ancillary Procedure [facility] - [facility] [address] [facility] [address] [place] [address] Health Maintenance Due Date Last Done Comments [...] on patient's age to complete this topic Medical Devices Implanted Type Area Search Marketing Analyst Device Identifier Shelf Expiration Date Model / Serial / Lot Abbt-Stju Ellipse Vr 1411-36c [id number] Implanted:03/19 (Quantity not on file) Cardiac ICD [facility] [employer] E[employer] VR 1411-36C / [id number] / Procedures Procedure Name Priority Date/Time Associated Diagnosis Comments [place]ARDIAC [place]ICE [place]- [place] [facility] Routine 12/19/2024 8:36 AM EST Encounter for adjustment or management of cardiac device ANNUAL BMP BLOOD TEST Routine 05/11/2024 from Last 3 Months or Most Recently Relevant to Health Maintenance Results * CARDIAC DEVICE CHECK- [place] [facility]12/19/2024 8:36 AM EST) Date Time Interrogation Session [id number] CV DEVICE CHECK Implantable Pulse Generator Search Marketing Analyst [employer] CV DEVICE CHECK Implantable Pulse Generator Type ICD CV DEVICE CHECK Implantable Pulse Generator Model Ellipse VR 1411-36C CV DEVICE CHECK Implantable Pulse Generator Serial Number [id number] CV DEVICE CHECK Implantable Pulse Generator Implant [...] Status: Stable * No overt HF present Order Referral Cardiovascular CV IMPLANTABLE CAR DIAC DEVICE PROCEDURES Final Result * Annual BMP Blood Test (05/11/2024) Annual BMP Blood Test Abstracted Historical Provider HEALTH MAINTENANCE Final Result from Last 3 Months or Most Recently Relevant to Health Maintenance Insurance MEDICARE [facility] [place] [place] [address] Care Teams Sld Teacher Relationship Specialty Start Date End Date Dede Perkins MD [address] [place] [facility] [place] [address] PCP - General 10/04/12
== END 2025-01-05 07:15 | disposition home or self-care (01) ==
LOC: HO.CT 07:14
PROVIDERS: PCP Internal Medicine; Visit Provider Internal Medicine Pulmonary Disease
DX: R91.1 Solitary pulmonary nodule (principal)
CPT/HCPCS: 71250

== ENCOUNTER → 2025-01-05 07:16 | Outpatient (BNV) | payer MEDICARE, OTHER, SELFPAY | PROVIDERS: PCP Internal Medicine; Visit Provider Specialist | DX: R91.1 Solitary pulmonary nodule (principal) | CPT/HCPCS: 71250 ==

== ENCOUNTER 2025-01-09 10:46 | Outpatient (AMB) | payer MEDICARE, OTHER, SELFPAY ==
--- NOTE | 2025-01-09 10:49 | A.OFFVIS_ITS ---
Vital Signs 01/09/25 10:50 Height 5 ft 5 in Weight 197 lb BMI 32.8 Intake Visit Reasons: Right Knee Durolane Injection Intake Note: Victoria Navas is a 69 year old female who presents today for a Right Knee Durolane injection. Allergies chloramphenicol Allergy (Unknown, Verified 01/09/25 10:49) rash pravastatin Allergy (Unknown, Verified 01/09/25 10:49) hives ciprofloxacin Adverse Reaction (Verified 01/09/25 10:49) burning sensation in ears zinc Adverse Reaction (Verified 01/09/25 10:49) hives latex Allergy (Unknown, Uncoded 01/09/25 10:49) rash HPI HPI Right Knee Durolane Injection: Details: Here for right knee Durolane [facility] Medical History Cataract (lens) fragments in eye following cataract surgery, bilateral Nodule of apex of right lung Osteoarthritis of right knee Loss of voice Asthma, mild intermittent Eczema Shoulder pain, left Diabetes mellitus with hyperglycemia, with long-term current use of insulin Essential hypertension Dyslipidemia Acquired hypothyroidism Surgical History History of carpal tunnel release History of lumpectomy of left breast H/O tubal ligation H/O thyroidectomy Family History Sister Diabetes mellitus Coronary artery disease Dyslipidemia Social History Housing: House Alcohol intake: never Patient Tobacco Use Status: Never used Tobacco e-Cigarette/Vaping Use: Never Used Second Hand Smoke Exposure: No service: No Current occupational status: retired Cognitive needs: No Hearing needs: No Vision needs: Yes Physical Exam Vital Signs: BMI result Body Mass Index 32.8 Extrem Other: skin c/d/i Office Procedures Joint Inj/Aspir; Non-Pain Clin Joint Injection/Drain Details: Injected Durolane. Site was prepped using aseptic technique. Patient tolerated the procedure well. Shoulders, Hips, Knees, Knee Large Joint Injection [id number]: Right Knee Coding Procedure code (CPT) selection complete Assessment & Plan Assessment & Plan (1) Osteoarthritis of right knee: Code(s): M17.11 - Unilateral primary osteoarthritis, right knee Category: Medical Plan: Injected Durolane. F/u 6 mo Coding Level of Care Code Est Pt Level 2 (11622) Diagnoses Osteoarthritis of right knee M17.11 CPT Codes Shoulders, Hips, Knees, - Knee Large Joint Injection : Right Knee ([id number])
[2025-01-09 10:50] VITALS: BMI 32.8
== END 2025-01-09 11:13 | disposition home or self-care (01) ==
LOC: HO.HOS 10:47
PROVIDERS: PCP Internal Medicine; Visit Provider Orthopaedic Surgery
DX: M17.11 Unilateral primary osteoarthritis, right knee (principal)
CPT/HCPCS: 20610

== ENCOUNTER → 2025-01-09 10:46 | Outpatient (BNVA) | payer MEDICARE, OTHER, SELFPAY | PROVIDERS: PCP Internal Medicine; Visit Provider Orthopaedic Surgery | DX: M17.11 Unilateral primary osteoarthritis, right knee (principal) | CPT/HCPCS: 20610; J7318 ==

== ENCOUNTER 2025-01-13 15:32 | Outpatient (AMB) | payer MEDICARE, OTHER, SELFPAY ==
[2025-01-13 15:34] VITALS: BP 118/64; PULSE 79; O2SAT 97; BMI 32.8
--- NOTE | 2025-01-13 15:34 | MHC.OFFVIS ---
Vital Signs 01/13/25 15:34 Height 5 ft 5 in Weight 197 lb BMI 32.8 BP 118/64 Blood Pressure Location Rt brachial Position Sitting Pulse 79 Pulse Source Doppler Pulse Oximetry (%) 97 Oxygen Delivery Method Room Air Intake Visit Reasons: solitary pulm nodule Allergies chloramphenicol Allergy (Unknown, Verified 01/13/25 15:39) rash pravastatin Allergy (Unknown, Verified 01/13/25 15:39) hives ciprofloxacin Adverse Reaction (Verified 01/13/25 15:39) burning sensation in ears zinc Adverse Reaction (Verified 01/13/25 15:39) hives latex Allergy (Unknown, Uncoded 01/09/25 10:49) rash HPI HPI solitary pulm nodule: Details: 69-year-old lady, nonsmoker, followed for underlying asthma and 1.1 cm right apical nodule. Patient had six-month follow-up CT scan that shows essentially the same size of her right apical nodule as compared to outside imaging. His symptoms currently well controlled on Advair, Spiriva, and albuterol MDI/nebs. [facility] Medical History Cataract (lens) fragments in eye following cataract surgery, bilateral Nodule of apex of right lung Osteoarthritis of right knee Loss of voice Asthma, mild intermittent Eczema Shoulder pain, left Diabetes mellitus with hyperglycemia, with long-term current use of insulin Essential hypertension Dyslipidemia Acquired hypothyroidism Surgical History History of carpal tunnel release History of lumpectomy of left breast H/O tubal ligation H/O thyroidectomy Family History Sister Diabetes mellitus Coronary artery disease Dyslipidemia Social History Housing: House Alcohol intake: never Patient Tobacco Use Status: Never used Tobacco e-Cigarette/Vaping Use: Never Used Second Hand Smoke Exposure: No service: No Current occupational status: retired Cognitive needs: No Hearing needs: No Vision needs: Yes Review of Systems Const Denies daytime sleepiness, Denies excessive sweating, Denies fatigue, Denies fever(s), Denies lethargy, Denies malaise, Denies night sweats, Denies snoring and Denies weight loss Eyes Denies blurry vision and Denies itchy eyes ENT Denies nasal congestion, Denies post nasal drip, Denies sinus pain, Denies sinus pressure and Denies other ( Thrush) Card Denies chest pain, Denies pedal edema, Denies dyspnea, Denies orthopnea and Denies paroxysmal nocturnal dyspnea Resp Denies cough, Denies hemoptysis, Denies excessive phlegm production, Denies dyspnea, Denies snoring and Denies wheezing GI Denies abdominal pain and Denies heartburn Musc Denies myalgias, Denies arthralgias and Denies joint swelling Skin/Breast Denies rash Neuro Denies memory loss and Denies seizure-like activity Psych Denies abnormal sleep pattern, Denies anxiety and Denies memory loss Endo Denies excessive sweating, Denies fatigue and Denies heat intolerance Micky/Lymph Denies easy bruising Aller/Immun Denies itchy eyes, Denies seasonal rhinorrhea and Denies wheezing Physical Exam Vital Signs: Last Vital Signs Pulse 79 01/13/25 15:34 BP 118/64 01/13/25 15:34 Pulse Ox 97 01/13/25 15:34 Oxygen Delivery Method Room Air 01/13/25 15:34 BMI result Body Mass Index 32.8 Const General: no acute distress and alert Nutritional Appearance: not obese Orientation/consciousness: Other orientation findings ( oriented) HEENT Head: Yes atraumatic Eyes General: appearance normal, both eyes and all related structures Sclerae: sclerae normal EOM: EOMs intact bilaterally Neck Neck: Yes supple Lymphatic: no lymphadenopathy noted Resp Effort & Inspection: normal respiratory effort and no use of accessory muscles Auscultation: clear to auscultation bilaterally Cardio Rate: regular rate Rhythm: regular rhythm Heart sounds: no gallops, no murmurs and no rubs Skin General skin exam: other ( warm) Extrem General: No clubbing, No cyanosis and No edema Assessment & Plan Assessment & Plan (1) Asthma: Code(s): J45.909 - Unspecified asthma, uncomplicated Category: Medical Plan: Well controlled on current regimen of Spiriva, Advair, albuterol MDI/nebs. Continue current regimen. (2) Nodule of apex of right lung: Code(s): R91.1 - Solitary pulmonary nodule Category: Medical Plan: Results of six-month follow-up CT scan reviewed, no change in known right apical 1.1 cm pulmonary nodule. Will repeat CT scan in 12 months. Orders: Orders CT chest wo IV con 01/03/26 R91.1 - Solitary pulmonary nodule Coding Level of Care Code Est Pt Level 4 (66526) Diagnoses Asthma J45.909 Nodule of apex of right lung R91.1
== END 2025-01-13 15:54 | disposition home or self-care (01) ==
LOC: HO.HPS 15:33
PROVIDERS: PCP Internal Medicine; Visit Provider Internal Medicine Pulmonary Disease
DX: J45.909 Unspecified asthma, uncomplicated (principal); R91.1 Solitary pulmonary nodule
CPT/HCPCS: 99214

== ENCOUNTER → 2025-01-13 15:32 | Outpatient (BNVA) | payer MEDICARE, OTHER, SELFPAY | PROVIDERS: PCP Internal Medicine; Visit Provider Internal Medicine Pulmonary Disease | DX: J45.909 Unspecified asthma, uncomplicated (principal); R91.1 Solitary pulmonary nodule | CPT/HCPCS: 99212 ==

== ENCOUNTER 2025-03-09 08:57 | Outpatient (REF) | payer MEDICARE, OTHER, SELFPAY ==
--- OUTSIDE RECORDS SUMMARY | 2025-03-09 09:07 | XMS_ITS | Clinical Summary ---
Author Organization [address] [place] [address] [place] [phone] Phone Care Team Providers Care Pmp Certified Project Manager Name Role Phone Dede Perkins MD [...] Problem Noted Date Diagnosed Date Arrhythmogenic right ventric ular cardiomyopathy (CMS/HCC V24, CMS/HCC V28) 05/06/2022 Overview (09/23/2024): 66-year-old female with a [...] Description 12/19/2024 8:30 AM EST Ancillary Procedure [facility] - [facility] [address] [facility] [address] [place] [address] Encounter for adjustment or management of cardiac device from Last 3 Months Social History Tobacco [...] Description 12/19/2025 9:30 AM EST Ancillary Procedure [facility] - [facility] [address] [facility] [address] [place] [address] Health Maintenance Due Date Last Done Comments [...] 2024 05/12/2022, 10/25/2021, 04/22/2021, Additional history exists Hypertension/CHF/CAD Annual BMP Blood Test 05/11/2025 05/11/2024, 05/11/2024 Influenza Vaccine (Season Ended) 2025 07/02/2023, 07/31/2022, 08/20/2021, Additional history exists DTaP,Tdap,and Td Vaccines (2 - Td or Tdap) 01/02/2026 01/03/2016 Zoster Vaccines Completed 07/21/2023, 05/12/2023 RSV Immunization Adult Patients Completed 10/15/2023 HIB Vaccines Aged Out No [...] age to complete this topic Meningococcal B Vaccine Aged Out No l onger eligible based on patient's age to complete this topic RSV Immunization Patients Under 20 months Aged Out No longer eligible based on patient's age to complete this topic Varicella Vaccines Aged Out No longer eligible based on patient's age to complete this topic Medical Devices Implanted Type Area Shale Planer Operator Device Identifier Shelf Expiration Date Model / Serial / Lot Abbt-Dameon Ellipse Vr 1411-36c [id number] Implanted:03/19 (Quantity not on file) Cardiac ICD [facility] VR 1411-36C / [id number] / Procedures Procedure Name Priority Date/Time Associated Diagnosis Comments CARDIAC DEVICE CHECK- IN CLINIC- [facility] Routine 12/19/2024 8:36 AM EST Encounter for adjustment or management of cardiac device ANNUAL BMP BLOOD TEST Routine 05/11/2024 from Last 3 Months or Most Recently Relevant to Health Maintenance Results * CARDIAC DEVICE CHECK- IN CLINIC- [facility] (12/19/2024 8:36 AM EST) Date Time Interrogation Session [id number] CV DEVICE CHECK Implantable Pulse Generator Shale Planer Operator [employer]Jennifer CV DEVICE CHECK Implantable Pulse Generator Type ICD CV DEVICE CHECK Implantable Pulse Generator Model Ellipse VR 1411-36C CV DEVICE CHECK Implantable Pulse Generator Serial Number [id number] CV DEVICE CHECK Implantable Pulse Generator Implant [...] Recently Relevant to Health Maintenance Insurance MEDICARE [facility] Care Teams Pmp Certified Project Manager Relationship Specialty Start Date End Date Dede Perkins MD [address] [place] [address] PCP - General 10/04/12
--- OUTSIDE RECORDS SUMMARY | 2025-03-09 09:07 | XMS_ITS | Patient Health Record ---
Author Organization [employer] [facility] Address [address] [address] Care Team Providers Care Hole Filler Name Role Phone ELIANA VELEZ MD Primary Care Provider Samantha Stuart Unavailable [phone] Allergies Allergen (clinical drug ingredient) Drug/Non Drug Allergy documented on EMR Reaction Allergy Type Onset Date Status Chloramphenicol Hives Drug Allergy A ctive Chloramphenicol rash Drug Allergy A ctive Simvastatin rash Drug Allergy Activ e Latex Unknown Drug Allergy Active Substance with 8-uybmbfj-1-methylgl utaryl-coenzyme A reductase inhibitor mechanism of action (substance) Statins Skin Rash Drug Allergy Active Reason For Referral No Information Medications Medication [...] Status Risk Notes Problem Postmenopausal atrophic vaginitis (41746662) Postmenopausal atrophic vaginitis (N95.2) Active confirmed Problem Postmenopausal bleeding (20326325) Postmenopausal bleeding (N95.0) Active confirmed Problem Essential hypertension (30929051) Essential (primary) hypertension (I10) Active confirmed Problem Disorder due to type 2 diabetes mellitus (533318184) Type 2 diabetes mellitus with unspecified complications (E11.8) Active confirmed Problem Asthma (711707264) Other asthma (J45.998) Active confirmed Problem Cystocele (287575095) Cystocele, unspecified (N81.10) Active confirmed Problem Stress incontinence (female) (male) (N39.3) Active confirmed Plan Of Treatment Pending Test Test Name [...] Coverage End Date MEDICARE [address] [facility] [id number] [phone] [id number] CONSMARITA HECTOR Self - patient is the insured [facility] [address] [place] [address] [id number] JONATHANO MARITA JARQUIN Self - patient is the insured Medical [...]
[2025-03-09 11:01] LABS: Alanine Aminotransferase 25 U/L (0-31); Anion Gap 15 (12-20); Aspartate Amino Transferase 28 U/L (5-31); Blood Urea Nitrogen 22 mg/dL (9-16); Calcium 9.8 mg/dL (8.4-10.2); Carbon Dioxide 28 mmol/L (22-29); Chloride 104 mmol/L (96-108); Cholesterol 145 mg/dL (<200); Estimated Glomerular Filt Rate > 60; Glucose Fasting 134 mg/dL (60-99); HDL Cholesterol 46 mg/dL (>40); LDL Cholesterol Calculated 76 mg/dL (<100); Potassium 4.4 mmol/L (3.3-5.1); Sodium 143 mmol/L (135-145); Triglycerides 117 mg/dL (<150)
[2025-03-09 11:06] LABS: Estimated Average Glucose 154 mg/dL; Hemoglobin A1C 205.6544 umol/L; Total Hemoglobin (HGBA1C) 3878.5552 umol/L
[2025-03-09 11:26] LABS: Free T4 (Free Thyroxine) 1.05 ng/dL (0.71-1.85); Thyroid Stimulating Hormone 3.22 uIU/mL (0.32-4.0)
== END 2025-03-09 08:58 | disposition home or self-care (01) ==
LOC: HO.HMGCLDS 08:57
PROVIDERS: PCP Internal Medicine; Visit Provider Internal Medicine
DX: E78.5 Hyperlipidemia, unspecified (principal); E03.9 Hypothyroidism, unspecified; I10 Essential (primary) hypertension; E11.65 Type 2 diabetes mellitus with hyperglycemia; Z79.4 Long term (current) use of insulin
CPT/HCPCS: 36415; 80048; 80061; 83036; 84439; 84443; 84450; 84460

== ENCOUNTER 2025-03-14 11:16 | Outpatient (AMB) | payer MEDICARE, OTHER, SELFPAY ==
--- NOTE | 2025-03-14 11:28 | MHC.PC.OV ---
Vital Signs 03/14/25 11:29 Height 5 ft 5 in Weight 199 lb BMI 33.1 BP 110/68 Blood Pressure Location Rt brachial Position Sitting Respiration 18 Pulse 71 Pulse Source Pulse Oximeter Temp 98 F Temp Source Oral Pulse Oximetry (%) 97 Oxygen Delivery Method Room Air Intake Visit Reasons: 2m f/u Intake Note: Pt is here for 2m F/u. Allergies chloramphenicol Allergy (Unknown, Verified 03/14/25 11:56) rash pravastatin Allergy (Unknown, Verified 03/14/25 11:56) hives ciprofloxacin Adverse Reaction (Verified 03/14/25 11:56) burning sensation in ears zinc Adverse Reaction (Verified 03/14/25 11:56) hives latex Allergy (Unknown, Uncoded 03/14/25 11:56) rash Medication List - Last Reconciled 03/14/25 by Dede Perkins MD Admelog SoloStar U-100 Insulin (insulin lispro) 15 units (0.15 mL) subcut BID 3 months NS Advair HFA 115-21 mcg/actuation (fluticasone propion-salmeterol) 2 puffs inhalation Q12H NS albuterol sulfate 2.5 mg (3 mL) inhalation Q6H PRN albuterol sulfate 90 mcg/actuation (Ventolin HFA) 2 puffs inhalation Q6H PRN amlodipine 5 mg PO DAILY aspirin (Adult Low Dose Aspirin) 81 mg PO DAILY Basaglar KwikPen U-100 Insulin (insulin glargine) 45 units (0.45 mL) subcut QAM 3 months NS cholecalciferol (vitamin D3) 50 mcg PO DAILY empagliflozin 25 mg PO DAILY levothyroxine 88 mcg PO QAM losartan 100 mg PO DAILY lutein 20 mg PO DAILY magnesium citrate,mag oxide mg PO metformin 1,000 mg PO BID omeprazole 20 mg PO DAILY Ozempic (semaglutide) 0.25 mg (0.368 mL) subcut QWEEK 30 days NS rosuvastatin 10 mg PO DAILY sotalol 120 mg PO BID spironolactone (Aldactone) 25 mg PO DAILY tiotropium bromide (Spiriva with HandiHaler) 1 cap inhalation DAILY vitamin B complex (B Complex-Vitamin B12 tablet) 1 tab PO DAILY Tobacco use date assessed: 03/14/25 Fall risk assessment: No Falls in past year Dental Screening Dental Screen Date: 03/14/25 Did you have a dental visit in the last 12 months?: Yes Did you have a dental problem in the last 6 months where you did not have access to dental care?: No Was dental information given to patient?: Patient has dentist HPI 2m f/u HPI Details Sees 9-year-old lady with history of diabetes mellitus, hypertension hyperlipidemia as well as hypothyroidism, here today for follow-up. Patient states that she has been taking her medications as directed but has not been very compliant with diet, just came back from vacation where she has been having a lot of dietary indiscretions. [facility] Medical History Cataract (lens) fragments in eye following cataract surgery, bilateral Nodule of apex of right lung Osteoarthritis of right knee Loss of voice Asthma, mild intermittent Eczema Shoulder pain, left Diabetes mellitus with hyperglycemia, with long-term current use of insulin Essential hypertension Dyslipidemia Acquired hypothyroidism Surgical History History of carpal tunnel release History of lumpectomy of left breast H/O tubal ligation H/O thyroidectomy Family History Sister Diabetes mellitus Coronary artery disease Dyslipidemia Social History Housing: House Alcohol intake: never Patient Tobacco Use Status: Never used Tobacco e-Cigarette/Vaping Use: Never Used Second Hand Smoke Exposure: No service: No Current occupational status: retired Cognitive needs: No Hearing needs: No Vision needs: Yes Questionnaire PHQ-9 Over the last 2 weeks, how often have you been bothered by any of the following problems? Depression Screening Interpretation: Negative Depression Screening Done: Yes Source: Developed by Drs. Kurt Tavares, Gissel Maravilla, Ben Cheung and colleagues, with an educational lili from [employer]. Thrive Questionnaire Date Thrive assessed: 12/19/24 I am a: Patient What is your living situation today?: I have a steady place to live Within the past 12 months, did the food you bought not last and you didn't have the money to get more?: Never true Within the past 12 months, did you worry whether your food would run out before you got money to buy more?: Never true Do you have trouble paying for medicines?: No Do you have trouble getting transportation to medical appointments?: No Do you have trouble paying your heating and electricity bill?: No Do you have trouble taking care of your child, family member or friend?: No Do you have trouble with day-to-day activities such as bathing, preparing meals, shopping, managing finances, etc.?: No Are you currently unemployed and looking for a job?: No Are you interested in more education?: No Please select the resources that you would like help with: None Currently or been in a relationship where the following occur: No concerns reported THRIVE Score: 0 BRAYAN-7 AMB Questionnaire BRAYAN-7 Date BRAYAN - 7 assessed: 12/19/24 Source: Developed by Drs. Kurt Tavares, Gissel Maravilla, Ben Cheung and colleagues, with an educational lili from [employer]. Review of Systems Const Denies daytime sleepiness, Denies excessive sweating, Denies fatigue, Denies fever(s), Denies lethargy, Denies malaise, Denies night sweats, Denies snoring and Denies weight loss Eyes Denies blurry vision and Denies itchy eyes ENT Denies nasal congestion, Denies post nasal drip, Denies sinus pain, Denies sinus pressure and Denies other ( Thrush) Card Denies chest pain, Denies pedal edema, Denies dyspnea, Denies orthopnea and Denies paroxysmal nocturnal dyspnea Resp Denies cough, Denies hemoptysis, Denies excessive phlegm production, Denies dyspnea, Denies snoring and Denies wheezing GI Denies abdominal pain and Denies heartburn Reports no additional complaints Musc Denies myalgias, Denies arthralgias and Denies joint swelling Skin/Breast Denies rash Neuro Denies memory loss, Denies seizure-like activity and Denies Sensory deficit (Neuro) Psych Denies abnormal sleep pattern, Denies anxiety and Denies memory loss Endo Denies excessive sweating, Denies fatigue and Denies heat intolerance Micky/Lymph Denies easy bruising Aller/Immun Denies itchy eyes, Denies seasonal rhinorrhea and Denies wheezing Physical exam (Primary Care) Vital Signs: Last Vital Signs Temp 98 F 03/14/25 11:29 Pulse 71 03/14/25 11:29 Resp 18 03/14/25 11:29 BP 110/68 03/14/25 11:29 Pulse Ox 97 03/14/25 11:29 Oxygen Delivery Method Room Air 03/14/25 11:29 BMI result Body Mass Index 33.1 Tobacco/Smoking Status: Tobacco use Status Tobacco use date assessed 03/14/25 03/14/25 11:31 Patient Tobacco Use Status Never used Tobacco 03/14/25 11:31 e-Cigarette/Vaping Use Never Used 03/14/25 11:31 Depression Screening Interpretation: Negative Thrive Assessment: Date of Thrive Assessment Date Thrive assessed 12/19/24 03/14/25 11:31 Currently or been in a relationship where the following occur: No concerns reported Const Other: Alert oriented x3, no acute distress noted ambulatory normal gait HENIA General nose exam: Normal external nose present and No nasal discharge present Mouth: oropharynx normal and moist mucous membranes Eyes General: appearance normal, both eyes and all related structures Neck Other: Neck is supple with no lymphadenopathy, thyroid gland nonpalpable Chest Chest palpation & inspection: normal inspection of the chest Resp Effort & Inspection: normal respiratory effort and able to speak in complete sentences Auscultation: clear to auscultation bilaterally Cardio Other: S1-S2 present regular rate and rhythm GI Other: Obese, soft, non tender to palpation, normal bowel sounds, no mass palpated Other: Obese , normal bowel sounds, soft, nontender to palpation General: Yes no CVA tenderness Back/Spine/Pelvis Back: no CVA tenderness and No back tenderness Skin General skin exam: no rashes or lesions noted Neuro General: gait normal, tone normal, moves all extremities, Normal light touch and pain sensation, no focal motor deficits and CN's II-XI intact bilaterally Sensory Exam: No Sensory deficit (Neuro) Extrem Other: Mild plantar calluses noted in both feet, intact pulses General: Yes full ROM, Yes no pedal edema and Yes normal gait Psych Appearance: grossly normal Mental Status: mental status grossly normal Speech and movement: Normal speech and movement present Affect: normal affect Attitude: cooperative Thought process: Normal thought process present Thought content: Normal thought content present Results Reviewed Results Reviewed: Name: Victoria Anderson Age/Sex: 69/F : 1955 Unit#: [id number] Attend Dr: Dede Perkins MD Re03/09/25 Status: DEP REF Location: [facility] Disch: SPEC : [id number] LASHONDA: 03/09/25 STATUS: COMP REQ : [id number] RECD: 03/09/25-[address]: Dede Perkins MD COMP: 03/09/25 ENTERED: 03/09/25 [facility] DR: ORDERED: Met Prof Fast, AST, ALT, Lipid Panel, Free T4, TSH Test Result Flag Reference Sodium 143 135-145 mmol/L Potassium 4.4 3.3-5.1 mmol/L CL 104 96-108 mmol/L CO2 28 22-29 mmol/L Gap 15 12-20 BUN 22 H 9-16 mg/dL Creat 0.81 0.5-1.4 mg/dL eGFR > 60 Chronic Kidney Disease: Estimated GFR < 60 mL/min/1.73m2 Severe Kidney Disease: Estimated GFR < 15 mL/min/1.73m2 FBS 134 H 60-99 mg/dL A fasting glucose of 126 mg/dl or greater on more than one occasion is considered diagnostic of diabetes. CA 9.8 8.4-10.2 mg/dL AST (GOT) 28 5-31 U/L ALT (GPT) 25 0-31 U/L Triglyceride 117 <150 mg/dL Desirable Triglyceride: less than 150 mg/dL Borderline High Triglyceride 150-199 mg/dL High Triglyceride: 200-499 mg/dL Very High Triglyceride: greater than or equal to 5OO mg/dL Cholesterol 145 <200 mg/dL Desirable Cholesterol: less than 200 mg/dL Borderline High Cholesterol: 200-239 mg/dL High Cholesterol: greater than 239 mg/dL LDL Calculated 76 <100 mg/dL Desirable LDL: less than 100 mg/dL Near Optimal/Above Optimal LDL: 110-129 mg/dL Borderline High LDL: 130-159 mg/dL High LDL: 160-189 mg/dL Very High LDL: greater than or equal to 190 mg/dL HDL 46 >40 mg/dL Desirable HDL: greater than 40 mg/dL Note: This HDL assay may give artificially low results in patients with liver disease. Free T4 1.05 0.71-1.85 ng/dL TSH 3rd Gen. 3.22 0.32-4.0 uIU/mL Note: A sustained TSH level above 2.5 uIU/mL may warrant further investigation. Laboratory Tests 12/12/24 12/12/24 03/09/25 09:03 09:20 09:02 Estimat Average Glucose 200 154 Hemoglobin A1c % 8.6 H 7.0 H Urine Creatinine 103.98 Urine Microalbumin 66.0 Microalb/Creat Ratio 63.4 H Coding Level of Care Code Est Pt Level 4 (07522) Complex EM visit Add On G2211 Diagnoses Type 2 diabetes mellitus with hyperglycemia, with long-term current use of insulin E11.65; Z79.4 Diabetes mellitus type: type 2 Essential hypertension I10 Dyslipidemia E78.5 Acquired hypothyroidism E03.9 Assessment & Plan Assessment & Plan (1) Diabetes mellitus with hyperglycemia, with long-term current use of insulin: Code(s): E11.65 - Type 2 diabetes mellitus with hyperglycemia; Z79.4 - intermission coordinator (current) use of insulin Category: Medical Qualifiers: Diabetes mellitus type: type 2 Qualified Code(s): E11.65 - Type 2 diabetes mellitus with hyperglycemia; Z79.4 - skilled nursing (current) use of insulin Plan: Improvement in diabetes control noted with hemoglobin A1c now at 7%. Will continue on Admelog Solostar, Basaglar and metformin. Increase Ozempic dose 2.5 mg was injected subcutaneously once a week. Stressed importance of getting yearly diabetes retinopathy screening. (2) Essential hypertension: Code(s): I10 - Essential (primary) hypertension Category: Medical Plan: Blood pressure at goal of less than 130/80. Continue with current medication. Reinforced importance of following a low sodium diet, getting regular exercise, and lowering stress levels. (3) Dyslipidemia: Code(s): E78.5 - Hyperlipidemia, unspecified Category: Medical Plan: Latest fasting lipids are within normal limits. Continue rosuvastatin 10 mg daily (4) Acquired hypothyroidism: Code(s): E03.9 - Hypothyroidism, unspecified Category: Medical Plan: Thyroid levels are within normal limits, continue current dose of levothyroxine 88 mcg daily in the morning. Medications: Changed From Ozempic (semaglutide) for 4 weeks 0.25 mg (0.368 mL) subcut QWEEK 30 days 3 mL 4RF NS E11.65 - Type 2 diabetes mellitus with hyperglycemia, Z79.4 - skilled nursing (current) use of insulin To Ozempic (semaglutide) for 4 weeks 0.5 mg (0.736 mL) subcut QWEEK 3 mL 4RF 30 days NS E11.65 - Type 2 diabetes mellitus with hyperglycemia, Z79.4 - intermission coordinator (current) use of insulin From Admelog SoloStar U-100 Insulin (insulin lispro) 15 units (0.15 mL) subcut BID 3 months 27 mL 5RF NS To Admelog SoloStar U-100 Insulin (insulin lispro) 15 units (0.15 mL) subcut QAM 13.5 mL 5RF 3 months NS
[2025-03-14 11:29] VITALS: BP 110/68; PULSE 71; RESP 18; TEMP 36.6; O2SAT 97; BMI 33.1
--- OUTSIDE RECORDS SUMMARY | 2025-03-14 12:05 | XMS_ITS | Clinical Summary ---
Author Organization [address] [place] [address] [place] [phone] Phone Care Team Providers Care Deckhand Maintenance Name Role Phone Dede Perkins MD Primary [...] Description 12/19/2024 8:30 AM EST Ancillary Procedure [facility] [address] [facility] [address] [place] [address] Encounter for adjustment or management of cardiac [...] Description 12/19/2025 9:30 AM EST Ancillary Procedure [facility] [address] [facility] [address] [place] [address] Health Maintenance Due Date Last Done Comments [...] this topic Medical Devices Implanted Type Area Scratch Finisher Device Identifier Shelf Expiration Date Model / Serial / Lot Abbt-Dameon Ellipse Vr 1411-36c [id number] Implanted:03/19 (Quantity not on file) Cardiac ICD [facility] [employer] ELLIPSE VR 1411-36C / [id number] / Procedures Procedure Name Priority Date/Time Associated Diagnosis Comments CARDIAC DEVICE CHECK- IN CLINIC- MURJ Routine 12/19/2024 8:36 AM EST Encounter for adjustment or management of cardiac device ANNUAL BMP BLOOD TEST Routine 05/11/2024 from Last 3 Months or Most Recently Relevant to Health Maintenance Results * CARDIAC DEVICE CHECK- IN CLINIC- MURJ (12/19/2024 8:36 AM EST) Date Time Interrogation Session [id number] CV DEVICE CHECK Implantable Pulse Generator Scratch Finisher [employer] CV DEVICE CHECK Implantable Pulse Generator Type ICD CV DEVICE CHECK Implantable Pulse Generator Model Ellipse VR 1411-36C CV DEVICE CHECK Implantable Pulse Generator Serial Number [id number] CV DEVICE CHECK Implantable Pulse Generator Implant [...] Recently Relevant to Health Maintenance Insurance MEDICARE [facility] Care Teams Deckhand Maintenance Relationship Specialty Start Date End Date Dede Perkins MD [address] [place] [address] PCP - General 10/04/12
== END 2025-03-14 12:24 | disposition home or self-care (01) ==
LOC: HO.HMCC 11:17
PROVIDERS: PCP Internal Medicine; Visit Provider Internal Medicine
DX: E11.65 Type 2 diabetes mellitus with hyperglycemia (principal); Z79.4 Long term (current) use of insulin; I10 Essential (primary) hypertension; E78.5 Hyperlipidemia, unspecified; E03.9 Hypothyroidism, unspecified

== ENCOUNTER → 2025-03-14 11:16 | Outpatient (BNVA) | payer MEDICARE, OTHER, SELFPAY | PROVIDERS: PCP Internal Medicine; Visit Provider Internal Medicine | DX: E11.65 Type 2 diabetes mellitus with hyperglycemia (principal); E78.5 Hyperlipidemia, unspecified; E03.9 Hypothyroidism, unspecified; I10 Essential (primary) hypertension; Z79.4 Long term (current) use of insulin | CPT/HCPCS: 99212 ==

== ENCOUNTER 2025-03-21 10:05 | Outpatient (REF) | payer MEDICARE, OTHER, SELFPAY ==
--- NOTE | ~2025-03-21 | MM_ITS ---
EXAMINATION: MM SCREENING DIGITAL BREAST TOMOSYNTHESIS, BILATERAL CLINICAL INFORMATION: Screening. Asymptomatic. COMPARISON: Mammography: Comparison is made with available priors TECHNIQUE: Digital breast mammography with tomosynthesis is performed in both the craniocaudal and mediolateral oblique views along with computer-aided detection (CAD). FINDINGS: The breasts are heterogeneously dense, which may obscure small masses (ACR BI-RADS breast composition Category c). Pacemaker overlies and obscures the superior posterior left breast on MLO view. There are no significant masses, abnormal calcifications, or other abnormalities. MM/MM tomosynthesis screening BI IMPRESSION: No mammographic evidence of malignancy. ASSESSMENT: BI-RADS BI-RADS 2 - Benign Findings RECOMMENDATION: Routine annual mammography screening. 1 year F/U This examination should not preclude the clinical evaluation of a suspicious palpable abnormality. This patient's information was entered into a reminder system with a target due date for their next mammogram. Electronically signed by: Bharti Metzger DO 03/26/2025 01:06 PM EDT
--- NOTE | ~2025-03-21 | MM_ITS ---
EXAMINATION: DXA BONE DENSITY AXIAL HISTORY: Z12.31 - Encounter for screening mammogram for malignant neoplasm of breast TECHNIQUE: [employer] Dual energy absorptiometry (DEXA) of the lumbar spine, total left hip, and femoral neck was performed. COMPARISON: Comparison is made with the prior examination dated 03/19/2023. FINDINGS: The bone mineral density of the lumbar spine is 1.295, corresponding to a T-score of 1.0, and a Z-score of 1.8. This is indicative of normal bone mineral density. This represents a BMD change of -3.1% compared to the prior exam. This is statistically significant. The bone mineral density of the left total hip is 1.069, corresponding to a T-score of 0.5, and a Z-score of 1.2. This is indicative of normal bone mineral density. This represents a BMD change of 19.2% compared to the prior exam. This is statistically significant. The bone mineral density of the left femoral neck is 0.959, corresponding to a T-score of -0.6, and a Z-score of 0.5. This is indicative of normal bone mineral density. This represents a BMD change of 16.7% compared to the prior exam. MM/XR DEXA axial skeleton IMPRESSION: Based on bone mineral density, and according to World Health Organization (WHO) criteria, the diagnosis is consistent with normal bone mineral density. All bone density values are in grams per centimeter squared (g/cm2). Statistically, 68% of repeat scans fall within 1 SD (+/- 0.010 g/cm2 for AP spine L1-L4) and 1 SD (+/- 0.012 g/cm2 for femur total) FRAX is a trademark of the [employer]'s [place] [facility] Metabolic Bone Disease, a World Health Organization (WHO) Collaborating Center. Electronically signed by: Kurt Apodaca MD 03/21/2025 10:55 AM EDT
--- OUTSIDE RECORDS SUMMARY | 2025-03-21 11:32 | XMS_ITS | Clinical Summary ---
Author Organization [address] [place] [address] [place] [phone] Phone Care Team Providers Care Burner Machine Operator Name Role Phone Dede Perkins MD Primary [...] Encounters Date Type Department Care Team Description 03/21/2025 9:00 AM EDT Ancillary Procedure [facility] [address] [place] [address] Arrived 12/19/2024 8:30 AM EST Ancillary Procedure [facility] [address] [place] [address] Encounter for adjustment or management of cardiac [...] EST Ancillary Procedure [facility] [address] [facility] [address] [place] [address] Health Maintenance Due Date Last Done Comments [...] this topic Medical Devices Implanted Type Area Patternmaker Plaster And Plastic Device Identifier Shelf Expiration Date Model / Serial / Lot Abbt-Stju Ellipse Vr 1411-36c [id number] Implanted:03/19 (Quantity not on file) Cardiac ICD [facility] [employer] ELLIPSE VR 1411-36C / [id number] / Abbt-Stju 1411-36c Ellipse(Tm) Vr [id number] Implanted:03/19 (Quantity not on file) Cardiac ICD [facility] 1411-36C ELLIPSE(TM) VR / [id number] / Procedures Procedure Name Priority Date/Time Associated Diagnosis Comments CARDIAC DEVICE CHECK- REMOTE- MURJ Routine 03/21/2025 8:57 AM EDT CARDIAC DEVICE CHECK- IN CLINIC- MURJ Routine 12/19/2024 8:36 AM EST Encounter for adjustment or management of cardiac device ANNUAL BMP BLOOD TEST Routine 05/11/2024 from Last 3 Months or Most Recently Relevant to Health Maintenance Results * Cardiac device check - Remote- MURJ (03/21/2025 8:57 AM EDT) Date Time Interrogation Session [id number] CV DEVICE CHECK Type Interrogation Session Remote Scheduled CV DEVICE CHECK Implantable Pulse Generator Patternmaker Plaster And Plastic [employer]ennifer CV DEVICE CHECK Implantable Pulse Generator Type ICD CV DEVICE CHECK Implantable Pulse Generator Model 1411-36C Ellipse(TM) VR CV DEVICE CHECK Implantable Pulse Generator Serial Number [id number] CV DEVICE CHECK Implantable Pulse Generator Implant Date [id number] CV DEVICE CHECK Battery Remaining Percentage 40.00 CV DEVICE CHECK Battery Remaining Longevity 42.0 CV DEVICE CHECK Battery Voltage 2.890 CV D EVICE CHECK Battery RETREAD MOLD OPERATOR Trigger 2.590 CV DEVICE CHECK Battery Status Middle of Service CV DEVICE CHECK Capacitor Charge Time 7.800 CV DEVICE CHECK Doug Statistic RV Percent Paced 1.00 CV DEVICE CHECK Lead Channel Sensing Intrinsic Amplitude 4.900 CV DEVICE CHECK Lead Channel Setting Sensing Sensitivity 0.50 CV DEVICE CHECK Lead Channel Impedance Value 1,075 CV DEVICE CHECK Lead Channel Setting Pacing Amplitude 1.250 CV DEVICE CHECK Lead Channel Setting Pacing Pulse Width 0.5 CV DEVICE CHECK Doug Setting Mode (NBG Code) VVI CV DEVICE CHECK Doug Setting Lower Rate Limit 40 CV DEVICE CHECK Doug Setting Maximum Sensor Rate 110 CV DEVICE CHECK Therapy Statistic Recent Shocks Delivered 0 CV DEVICE CHECK Therapy Statistic Recent Shocks Aborted 0 CV DEVICE CHECK Therapy Statistic Recent ATP Delivered 0 CV DEVICE CHECK Shock Measured Impedance 59 CV DEVICE CHECK Zone Setting Type Category VT CV DEVICE CHECK Rate 150 CV DEVICE CHECK Zone Setting Status On CV DEVICE CHECK Zone ID 1 CV DEVICE CHECK Zone Setting Type Category VT CV DEVICE CHECK Rate 176 CV DEVICE CHECK Therapies 3 x Burst+Scan,15.0J, 30.0J,36.0J x 2 CV DEVICE CHECK Zone Setting Status On CV DEVICE CHECK Zone ID 2 CV DEVICE CHECK Zone Setting Type Category VF CV DEVICE CHECK Rate 207 CV DEVICE CHECK Therapies 25.0J,30.0J,36.0J x 4 CV DEVICE CHECK Zone Setting Status On CV DEVICE CHECK Zone ID 3 CV DEVICE CHECK Date of Service 2025-03-28 CV DEVICE CHECK Anatomical Region Laterality Modality Device Interroga tion 03/19/2025 4:00 AM EDT Impressions 03/21/2025 8:48 AM EDT Normal Remote: No Events * Normal Device Function * Alerts or events: None * Battery: Battery is at 40%, 3.50 yrs * Sensing, impedance and thresholds reviewed * Programmed parameters reviewed * Presenting rhythm reviewed * Heart Rate Histograms reviewed * No significant changes noted Heart Failure Diagnostic: Stable * Heart failure diagnostics assessed through the device * Status: Stable * No overt HF present Narrative Procedure Note Daniel Connors MD - 03/21/2025 IMPRESSION: Normal Remote: No Events * Normal Device Function * Alerts or events: None * Battery: Battery is at 40%, 3.50 yrs * Sensing, impedance and thresholds reviewed * Programmed parameters reviewed * Presenting rhythm reviewed * Heart Rate Histograms reviewed * No significant changes noted Heart Failure Diagnostic: Stable * Heart failure diagnostics assessed through the device * Status: Stable * No overt HF present Daniel Connors MD CV IMPLANTABLE CARDIAC DEVICE PROCEDURES Final Result * CARDIAC DEVICE CHECK- IN CLINIC- [facility] (12/19/2024 8:36 AM EST) Date Time Interrogation Session [id number] CV DEVICE CHECK Implantable Pulse Generator Patternmaker Plaster And Plastic [employer] CV DEVICE CHECK Implantable Pulse Generator Type ICD CV DEVICE CHECK Implantable Pulse Generator Model Ellipse VR 1411-36C CV DEVICE CHECK Implantable Pulse Generator Serial Number [id number] CV DEVICE CHECK Implantable Pulse Generator Implant [...] Test (05/11/2024) Annual BMP Blood Test Abstracted [facility] Provider HEALTH MAINTENANCE Final Result from Last 3 Months or Most Recently Relevant to Health Maintenance Insurance MEDICARE [facility] Care Teams Burner Machine Operator Relationship Specialty Start Date End Date Dede Perkins MD [address] [facility] [place] [address] PCP - General 10/04/12
== END 2025-03-21 10:06 | disposition home or self-care (01) ==
LOC: HO.MAMMO 10:05
PROVIDERS: PCP Internal Medicine; Visit Provider Internal Medicine
DX: Z12.31 Encounter for screening mammogram for malignant neoplasm of breast (principal); Z13.820 Encounter for screening for osteoporosis; Z78.0 Asymptomatic menopausal state
CPT/HCPCS: 77063; 77067; 77080

== ENCOUNTER → 2025-03-21 10:30 | Outpatient (BNV) | payer MEDICARE, OTHER, SELFPAY | PROVIDERS: PCP Internal Medicine; Visit Provider Radiology Diagnostic Radiology | DX: Z12.31 Encounter for screening mammogram for malignant neoplasm of breast (principal) | CPT/HCPCS: 77063; 77067 ==

== ENCOUNTER 2025-06-05 08:53 | Outpatient (REF) | payer MEDICARE, OTHER, SELFPAY ==
--- OUTSIDE RECORDS SUMMARY | 2025-06-05 09:21 | XMS_ITS | Patient Health Record ---
Author Organization [employer] [facility] Address [address] [address] Care Team Providers Care Dining Room Attendant Name Role Phone ELIANA VELEZ MD Primary Care Provider Samantha Stuart Unavailable [phone] Allergies Allergen (clinical drug ingredient) Drug/Non Drug Allergy documented on EMR Reaction Allergy Type Onset Date Status Chloramphenicol Hives Drug Allergy A ctive Chloramphenicol rash Drug Allergy A ctive simvastatin Simvastatin rash Drug Allergy Act js Latex Unknown Drug Allergy Active Substance with 9-tmuxkuv-5-methylgl utaryl-coenzyme A reductase inhibitor mechanism of action [...] 200 MCG 2 Orally night befor e procedure; Duration: 1 days 11/24/2023 Active Sotalol HCl 120 [...] Status Risk Notes Problem Postmenopausal atrophic vaginitis (92290278) Postmenopausal atrophic vaginitis (N95.2) Active confirmed Problem Postmenopausal bleeding (N95.0) Active confirmed Problem Essential hypertension (14519747) Essential (primary) hypertension (I10) Active confirmed Problem Disorder due to type 2 diabetes mellitus (301989026) Type 2 diabetes mellitus with unspecified complications (E11.8) Active confirmed Problem Asthma (603635655) Other asthma (J45.998) Active confirmed Problem Cystocele (617925794) Cystocele, unspecified (N81.10) Active confirmed Problem SI - Stress incontinence (04634429) Stress incontinence (female) (male) (N39.3) Active confirmed [...] Coverage End Date MEDICARE [address] [facility] [id number] MARITA SOLIS Self - patient is the insured [facility] [address] [place] [address] [id number] MARITA SOLIS Self - patient is the [...]
--- OUTSIDE RECORDS SUMMARY | 2025-06-05 09:21 | XMS_ITS | Clinical Summary ---
Author Organization [address] [place] [address] [place] [phone] Phone Care Team Providers Care Label Sewer Name Role Phone Dede Perkins MD Primary Care Provider [phone] Allergies Active Allergy Reactions Criticality Noted Date Comments Chloramphenicol 04/16/2021 Latex 04/16/2021 Lisinopril 04/16/2021 Nitroglycerin 04/16/2021 Pravastatin 04/16/2021 Medications albuterol HFA (PROAIR HFA ; PROVENTIL HFA ; VENTOLIN HFA) 90 mcg/actuation inhaler Inhale 2 Puffs into the lungs every 4 hours as needed. Active amLODIPine (NORVASC) 5 mg tablet Take 1 Tablet by mouth daily. 4 Active aspirin 81 mg EC tablet Take 81 mg by mouth daily. 9 Active budesonide-form oteroL (SYMBICORT) 160-4.5 mcg/actuation inhaler Inhale 2 Puffs into the lungs 2 times daily. Active cholecalciferol , vitamin D3, (cholecalcifero l, vit D3,,bulk,) 100,000 unit/gram powder 1 tablet Orally Once a day Active empagliflozin (Jardiance) 25 mg tablet Take 25 mg by mouth daily. 9 Active insulin glargine (Lantus U-100 Insulin) 100 unit/mL injection Active insulin lispro 100 unit/mL injection Active levothyroxine (SYNTHROID, LEVOTHROID) 88 mcg tablet Take 100 mcg by mouth daily. Active losartan (COZAAR) 100 mg tablet Take 1 Tablet by mouth daily. 2 Active lutein 20 mg tablet Take 1 Tablet by mouth daily. Active metFORMIN (GLUCOPHAGE) 1,000 mg tablet Take 1 Tablet by mouth 2 times daily (with meals). Active rosuvastatin (CRESTOR) 5 mg tablet Take 5 mg by mouth daily. Active spironolactone (ALDACTONE) 25 mg tablet Take 1 Tablet by mouth daily. 4 Active cyanocobalamin (VITAMIN B-12) 1,000 mcg tablet Take 1 tablet by mouth daily. Active sotaloL (BETAPACE) 120 mg tablet TAKE ONE TABLET BY MOUTH TWICE DAILY 180 tablet 5 Active sotaloL (BETAPACE) 120 mg tablet TAKE ONE TABLET BY MOUTH TWICE DAILY 4 05/24/20 25 Discontinued Active Problems Problem Noted Date Diagnosed Date [...] Description 03/21/2025 9:00 AM EDT Ancillary Procedure [facility] [address] [facility] [address] [place] [address] from Last 3 Months Social History Tobacco [...] Description 12/19/2025 9:30 AM EST Ancillary Procedure [facility] [address] [facility] [address] [place] [address] Health Maintenance Due Date Last Done Comments Breast Cancer Screening 1955 Diabetes: Annual Foot Exam 1967 Diabetes: Annual Retina Eye Exam 1965 Pneumococcal Vaccine: 50+ Years (2 of 2 - PCV) 01/02/2017 01/03/2016 Cholesterol Screening (Lipid Panel) 09/27/2022 Colorectal Cancer Screening: Colonoscopy 09/27/2022 Falls Risk Assessment 09/27/2022 Hepatitis C Screening 09/27/2022 Medicare Annual Wellness Visit 09/27/2022 Osteoporosis Screening (Bone Density Screening) 09/27/2022 Social Influencers of Health Screening 09/27/2022 COVID-19 Vaccine ( season) 2024 05/12/2022, 10/25/2021, 04/22/2021, Additional history exists Depression Screening 10/19/2024 Diabetes: Annual Urine Albumin-Creatinine Ratio (uACR) 03/21/2025 Diabetes: Blood Sugar Control Test (HGBA1C) 03/21/2025 Diabetes: Annual GFR (Glomerular Filtration Rate) 05/11/2025 05/11/2024, 05/11/2024 Hypertension/CHF/CAD Annual BMP Blood Test 05/11/2025 05/11/2024, 05/11/2024 Influenza Vaccine (#1) 2025 , 07/31/2022, 08/20/2021, Additional history exists DTaP,Tdap,and Td [...] this topic Medical Devices Implanted Type Area Construction Project Administrator Device Identifier Shelf Expiration Date Model / Serial / Lot Abbabdelrahman-ju Ellipse Vr 1411-36c [id number] Implanted:03/19 (Quantity not on file) Cardiac ICD [facility] [employer] ELL[employer] VR 1411-36C / [id number] / Abbt-Stju 1411-36c Ellipse(Tm) Vr [id number] Implanted:03/19 (Quantity not on file) Cardiac ICD [facility] [employer] 1411-36C ELLIPSE(TM) VR / [id number] / Procedures Procedure Name Priority Date/Time Associated Diagnosis Comments CARDIAC DEVICE CHECK- REMOTE- MURJ Routine 03/21/2025 8:57 AM EDT ANNUAL BMP BLOOD TEST Routine 05/11/2024 from Last 3 Months or Most Recently Relevant to Health Maintenance Results * Cardiac device check - Remote- MURJ (03/21/2025 8:57 AM EDT) Date Time Interrogation Session [id number] CV DEVICE CHECK Type Interrogation Session Remote Scheduled CV DEVICE CHECK Implantable Pulse Generator Construction Project Administrator St.Jennifer CV DEVICE CHECK Implantable Pulse Generator Type ICD CV DEVICE CHECK Implantable Pulse Generator Model 1411-36C Ellipse(TM) VR CV DEVICE CHECK Implantable Pulse Generator Serial Number [id number] CV DEVICE CHECK Implantable Pulse Generator Implant Date [id number] CV DEVICE CHECK Battery Remaining Percentage 40.00 CV DEVICE CHECK Battery Remaining Longevity 42.0 CV DEVICE CHECK Battery Voltage 2.890 CV D EVICE CHECK Battery TAX SPECIALIST Trigger 2.590 CV DEVICE CHECK Battery Status [...] IMPLANTABLE CARDIAC DEVICE PROCEDURES Final Result * Annual BMP Blood Test (05/11/2024) Annual BMP Blood Test Abstracted Historical Provider HEALTH MAINTENANCE Final Result from Last 3 Months or Most Recently Relevant to Health Maintenance Insurance MEDICARE [facility] Care Teams Label Sewer Relationship Specialty Start Date End Date Dede Perkins MD [address] [place] [address] PCP - General 10/04/12
[2025-06-05 10:21] LABS: Hemoglobin A1C 205.6502 umol/L; Total Hemoglobin (HGBA1C) 3706.0166 umol/L
[2025-06-05 10:54] LABS: Alanine Aminotransferase 22 U/L (0-31); Anion Gap 14 (12-20); Aspartate Amino Transferase 29 U/L (5-31); Blood Urea Nitrogen 18 mg/dL (9-16); Calcium 9.4 mg/dL (8.4-10.2); Carbon Dioxide 25 mmol/L (22-29); Chloride 105 mmol/L (96-108); Cholesterol 162 mg/dL (<200); Estimated Glomerular Filt Rate > 60; HDL Cholesterol 47 mg/dL (>40); Potassium 4.2 mmol/L (3.3-5.1); Sodium 140 mmol/L (135-145); Triglycerides 98 mg/dL (<150)
[2025-06-05 10:55] LABS: Free T4 (Free Thyroxine) 1.04 ng/dL (0.71-1.85); Thyroid Stimulating Hormone 2.00 uIU/mL (0.32-4.0)
== END 2025-06-05 08:54 | disposition home or self-care (01) ==
LOC: HO.HMGCLDS 08:53
PROVIDERS: PCP Internal Medicine; Visit Provider Internal Medicine
DX: I10 Essential (primary) hypertension (principal); E11.65 Type 2 diabetes mellitus with hyperglycemia; E78.5 Hyperlipidemia, unspecified; Z79.4 Long term (current) use of insulin
CPT/HCPCS: 36415; 80048; 80061; 82306; 83036; 84439; 84443; 84450; 84460

== ENCOUNTER 2025-06-12 10:42 | Outpatient (AMB) | payer MEDICARE, OTHER, SELFPAY ==
--- NOTE | 2025-06-12 10:54 | A.OFFPC_ITS ---
Vital Signs 06/12/25 11:01 Height 5 ft 5 in Weight 199 lb BMI 33.1 BP 110/74 Blood Pressure Location Lt brachial Position Sitting Respiration 16 Pulse 77 Pulse Source Pulse Oximeter Temp 98.8 F Temp Source Oral Pulse Oximetry (%) 97 Oxygen Delivery Method Room Air Intake Visit Reasons: 3m follow up Intake Note: Pt is here today for her 3mo. f/u Allergies chloramphenicol Allergy (Unknown, Verified 06/12/25 11:20) rash pravastatin Allergy (Unknown, Verified 06/12/25 11:20) hives ciprofloxacin Adverse Reaction (Verified 06/12/25 11:20) burning sensation in ears zinc Adverse Reaction (Verified 06/12/25 11:20) hives latex Allergy (Unknown, Uncoded 06/12/25 11:20) rash Medication List - Last Reconciled 06/12/25 by Dede Perkins MD Admelog SoloStar U-100 Insulin (insulin lispro) 15 units (0.15 mL) subcut QAM 3 months NS albuterol sulfate 2.5 mg (3 mL) inhalation Q6H PRN albuterol sulfate 90 mcg/actuation (Ventolin HFA) 2 puffs inhalation Q6H PRN amlodipine 5 mg PO DAILY aspirin (Adult Low Dose Aspirin) 81 mg PO DAILY Basaglar KwikPen U-100 Insulin (insulin glargine) 45 units (0.45 mL) subcut QAM NS cholecalciferol (vitamin D3) 50 mcg PO DAILY empagliflozin 25 mg PO DAILY levothyroxine 88 mcg PO QAM losartan 100 mg PO DAILY lutein 20 mg PO DAILY metformin 1,000 mg PO BID omeprazole 20 mg PO DAILY Ozempic (semaglutide) 0.5 mg (0.736 mL) subcut QWEEK 30 days NS rosuvastatin 10 mg PO DAILY sotalol 120 mg PO BID spironolactone (Aldactone) 25 mg PO DAILY vitamin B complex (B Complex-Vitamin B12 tablet) 1 tab PO DAILY Tobacco use date assessed: 06/12/25 Fall risk assessment: No Falls in past year Last assessed Fall Risk: 06/12/25 Dental Screening Dental Screen Date: 06/12/25 Did you have a dental visit in the last 12 months?: Yes Did you have a dental problem in the last 6 months where you did not have access to dental care?: Yes Was dental information given to patient?: Patient has dentist HPI 3m follow up HPI Details 69-year-old lady with history of diabete s mellitus, hypertension , hyperlipidemia as well as hypothyroidism, here today for follow-up. Patient states that she has been taking her medications as directed but admits to not getting much exercise, and not completely following recommended diet. Latest fasting labs showed hemoglobin A1c now up slightly at 7.2% with fasting lipids, and thyroid levels within normal limits. Goes to [facility] for her diabetes retinopathy screening, up-to-date, last done 03/21/2025 with no retinopathy seen. Patient states that she has been feeling well, with no other complaints at present time except for occasional joint pain mainly in knees PFSH Medical History Cataract (lens) fragments in eye following cataract surgery, bilateral Nodule of apex of right lung Osteoarthritis of right knee Loss of voice Asthma, mild intermittent Eczema Shoulder pain, left Diabetes mellitus with hyperglycemia, with long-term current use of insulin Essential hypertension Dyslipidemia Acquired hypothyroidism Surgical History History of carpal tunnel release History of lumpectomy of left breast H/O tubal ligation H/O thyroidectomy Family History Sister Diabetes mellitus Coronary artery disease Dyslipidemia Social History Housing: House Alcohol intake: never Patient Tobacco Use Status: Never used Tobacco e-Cigarette/Vaping Use: Never Used Second Hand Smoke Exposure: No service: No Current occupational status: retired Cognitive needs: No Hearing needs: No Vision needs: Yes Questionnaire Thrive Questionnaire Date Thrive assessed: 06/12/25 I am a: Patient What is your living situation today?: I have a steady place to live Within the past 12 months, did the food you bought not last and you didn't have the money to get more?: Never true Within the past 12 months, did you worry whether your food would run out before you got money to buy more?: Never true Do you have trouble paying for medicines?: No Do you have trouble getting transportation to medical appointments?: No Do you have trouble paying your heating and electricity bill?: No Do you have trouble taking care of your child, family member or friend?: No Do you have trouble with day-to-day activities such as bathing, preparing meals, shopping, managing finances, etc.?: No Are you currently unemployed and looking for a job?: No Are you interested in more education?: No Please select the resources that you would like help with: None Currently or been in a relationship where the following occur: No concerns reported THRIVE Score: 0 BRAYAN-7 AMB Questionnaire BRAYAN-7 Date BRAYAN - 7 assessed: 12/19/24 Source: Developed by Drs. Kurt Tavares, Gissel Maravilla, Ben Cheung and colleagues, with an educational lili from [employer]. Review of Systems Const Denies daytime sleepiness, Denies excessive sweating, Denies fatigue, Denies fever(s), Denies lethargy, Denies malaise, Denies night sweats, Denies snoring and Denies weight loss Eyes Denies blurry vision and Denies itchy eyes ENT Denies nasal congestion, Denies post nasal drip and Denies sinus pressure Card Denies chest pain, Denies pedal edema, Denies dyspnea, Denies orthopnea and Denies paroxysmal nocturnal dyspnea Resp Denies cough, Denies hemoptysis, Denies excessive phlegm production, Denies dyspnea, Denies snoring and Denies wheezing GI Denies abdominal pain and Denies heartburn Reports no additional complaints Musc Reports as per HPI, Denies myalgias and Denies joint swelling Skin/Breast Denies rash Neuro Denies memory loss, Denies seizure-like activity and Denies Sensory deficit (Neuro) Psych Denies abnormal sleep pattern, Denies anxiety and Denies memory loss Endo Denies excessive sweating, Denies fatigue and Denies heat intolerance Micky/Lymph Denies easy bruising Aller/Immun Denies itchy eyes, Denies seasonal rhinorrhea and Denies wheezing Physical exam (Primary Care) Vital Signs: Last Vital Signs Temp 98.8 F 06/12/25 11:01 Pulse 77 06/12/25 11:01 Resp 16 06/12/25 11:01 BP 110/74 06/12/25 11:01 Pulse Ox 97 06/12/25 11:01 Oxygen Delivery Method Room Air 06/12/25 11:01 BMI result Body Mass Index 33.1 Tobacco/Smoking Status: Tobacco use Status Tobacco use date assessed 06/12/25 06/12/25 10:56 Patient Tobacco Use Status Never used Tobacco 06/12/25 10:56 e-Cigarette/Vaping Use Never Used 06/12/25 10:56 Thrive Assessment: Date of Thrive Assessment Date Thrive assessed 06/12/25 06/12/25 10:57 Currently or been in a relationship where the following occur: No concerns repor jacklyn Const Other: Alert oriented x3, no acute distress noted ambulatory normal gait HENMT General nose exam: Normal external nose present and No nasal discharge present Mouth: oropharynx normal and moist mucous membranes Eyes General: appearance normal, both eyes and all related structures Neck Other: Neck is supple with no lymphadenopathy, thyroid gland nonpalpable Resp Effort & Inspection: normal respiratory effort and able to speak in complete sentences Auscultation: clear to auscultation bilaterally Cardio Other: S1-S2 present regular rate and rhythm GI Other: Obese, soft, non tender to palpation, normal bowel sounds, no mass palpated Other: Obese , normal bowel sounds, soft, nontender to palpation General: Yes no CVA tenderness Back/Spine/Pelvis Back: no CVA tenderness and No back tenderness Skin General skin exam: no rashes or lesions noted Neuro General: gait normal, tone normal, moves all extremities, Normal light touch and pain sensation, no focal motor deficits and CN's II-XI intact bilaterally Sensory Exam: No Sensory deficit (Neuro) Extrem Other: Mild plantar calluses noted in both feet, intact pulses General: Yes full ROM, Yes no pedal edema and Yes normal gait Psych Appearance: grossly normal Mental Status: mental status grossly normal Speech and movement: Normal speech and movement present Affect: normal affect Results Reviewed Results Reviewed: Name: Victoria Anderson Abelciyara Beatrice Age/Sex: 69/F : 1955 Unit#: [id number] Attend Dr: Dede Perkins MD Re06/05/25 Status: DEP REF Location: [facility] Disch: SPEC : [id number] LASHONDA: 06/05/25 STATUS: COMP REQ : [id number] RECD: 06/05/[address] [facility] [address]: Dede Perkins MD COMP: 06/05/25 ENTERED: 06/05/25 [facility]: ORDERED: Met Prof Fast, AST, ALT, Lipid Panel, Vitamin D 25-OH, Free T4, TSH Test Result Flag Reference Sodium 140 135-145 mmol/L Potassium 4.2 3.3-5.1 mmol/L CL 105 96-108 mmol/L CO2 25 22-29 mmol/L Gap 14 12-20 BUN 18 H 9-16 mg/dL Creat 0.76 0.5-1.4 mg/dL eGFR > 60 Chronic Kidney Disease: Estimated GFR < 60 mL/min/1.73m2 Severe Kidney Disease: Estimated GFR < 15 mL/min/1.73m2 FBS 114 H 60-99 mg/dL A fasting glucose from 100-125 mg/dl is considered impaired (pre-diabetes). CA 9.4 8.4-10.2 mg/dL AST (GOT) 29 5-31 U/L ALT (GPT) 22 0-31 U/L Triglyceride 98 <150 mg/dL Desirable Triglyceride: less than 150 mg/dL Borderline High Triglyceride 150-199 mg/dL High Triglyceride: 200-499 mg/dL Very High Triglyceride: greater than or equal to 5OO mg/dL Cholesterol 162 <200 mg/dL Desirable Cholesterol: less than 200 mg/dL Borderline High Cholesterol: 200-239 mg/dL High Cholesterol: greater than 239 mg/dL LDL Calculated 96 <100 mg/dL Desirable LDL: less than 100 mg/dL Near Optimal/Above Optimal LDL: 110-129 mg/dL Borderline High LDL: 130-159 mg/dL High LDL: 160-189 mg/dL Very High LDL: greater than or equal to 190 mg/dL HDL 47 >40 mg/dL Desirable HDL: greater than 40 mg/dL Note: This HDL assay may give artificially low results in patients with liver disease. Vitamin D 25-OH 76.3 >30 ng/mL Health Based Reference Values* < 20 ng/mL Deficient 20-30 ng/mL Insufficient > 30 ng/mL Sufficient *Genet MCCRACKEN. N Engl J Med. 2007;357:266-280 There is no well-established upper level of normal vitamin D levels. Some laboratories use 50 ng/mL as an upper limi t of normal. However, toxicity is patient-dependent and may occur at any level. Careful correlation with the patient's presentation is necessary and, if there is concern for vitamin D toxicity, treatment should be considered irrespective of the serum level. Care must be taken in interpreting Vitamin D results from different laboratories and methodologies. Published data demonstrated that results from patients undergoing hemodialysis may show a negative bias when tested with various automated 25-OH vitamin D assays when compared to LC-MS/MS. When testing samples from patients whose predominant form of Vitamin D is Vitamin D2, such as patients receiving Vitamin D2 supplementation, results that are subtherapeutic should be confirmed with another method such as LC-MS/MS. Free T4 1.04 0.71-1.85 ng/dL TSH 3rd Gen. 2.00 0.32-4.0 uIU/mL TSH 3rd Generation ([facility]) Laboratory Tests 12/12/24 06/05/25 09:20 09:00 Estimat Average Glucose 160 Hemoglobin A1c % 7.2 H Microalb/Creat Ratio 63.4 H Coding Level of Care Code Est Pt Level 4 (40307) Complex EM visit Add On G2211 Diagnoses Essential hypertension I10 Dyslipidemia E78.5 Type 2 diabetes mellitus with hyperglycemia, with long-term current use of insulin E11.65; Z79.4 Diabetes mellitus type: type 2 Acquired hypothyroidism E03.9 Assessment & Plan Assessment & Plan (1) Essential hypertension: Code(s): I10 - Essential (primary) hypertension Category: Medical Plan: Blood pressure at goal of less than 130/80. Continue with current medication. Reinforced importance of following a low sodium diet, getting regular exercise, and lowering stress levels. (2) Dyslipidemia: Code(s): E78.5 - Hyperlipidemia, unspecified Category: Medical Plan: Reviewed recent fasting lipid profile with patient with levels . Continue with rosuvastatin 10 mg once a day , in addition to adherence to low-cholesterol diet and regular exercise, at least 30 minutes 3 to 4 times a week. Advised patient to make healthy food choices, eat more fruits, vegetables, whole grains, wild caught fish and low-fat dairy. Limit amount of meat and fried or fatty food products, as well as processed foods and fast foods. Follow-up scheduled with repeat fasting lipid panel in [place] 2026 [place] (3) Diabetes mellitus with hyperglycemia, with long-term current use of insulin: Code(s): E11.65 - Type 2 diabetes mellitus with hyperglycemia; Z79.4 - terminal operations manager (current) use of insulin Category: Medical Qualifiers: Diabetes mellitus type: type 2 Qualified Code(s): E11.65 - Type 2 diabetes mellitus with hyperglycemia; Z79.4 - care home (current) use of insulin Plan: Recent lab results reviewed with patient, with sugar and hemoglobin A1c slightly higher compared to last check at 7.2% hemoglobin A1c. Continue with current med ications continue to check fasting blood sugar at home, maintain log and bring to next appointment for review. Reinforced diabetic diet and regular exercise with patient. Counseled regarding importance of yearly diabetes retinopathy screening. Patient advised to inspect feet daily, for any signs of injury, callus or infection. Compliance with diet and regular exercise again stressed. Blood pressure goal is less than 130/80, goal LDL is less than 100 and goal hemoglobin A1c is less than 7% follow-up appointment in February 2026, after fasting labs done. (4) Acquired hypothyroidism: Code(s): E03.9 - Hypothyroidism, unspecified Category: Medical Plan: Continue current dose of levothyroxine at 88 mcg daily in the morning
[2025-06-12 11:01] VITALS: BP 110/74; PULSE 77; RESP 16; TEMP 37.1; O2SAT 97; BMI 33.1
--- OUTSIDE RECORDS SUMMARY | 2025-06-12 11:57 | XMS_ITS | Clinical Summary ---
Author Organization [address] [place] [address] [place] [phone] Phone Care Team Providers Care Program Therapist Name Role Phone Dede Perkins MD Primary [...] Take 5 mg by mouth daily. Active cyanocobalamin (VITAMIN B-12) 1,000 mcg tablet Take 1 tablet by mouth daily. Active sotaloL (BETAPACE) 120 mg tablet TAKE ONE TABLET BY MOUTH TWICE DAILY 180 tablet 5 Active spironolactone (ALDACTONE) 25 mg tablet TAKE ONE TABLET BY MOUTH ONCE DAILY 90 tablet 1 5 Active sotaloL (BETAPACE) 120 mg tablet TAKE ONE TABLET BY MOUTH TWICE DAILY 4 05/24/20 25 Discontinued spironolactone (ALDACTONE) 25 mg tablet Take 1 Tablet by mouth daily. 4 06/06/20 25 Discontinued Active Problems Problem Noted Date [...] Description 03/21/2025 9:00 AM EDT Ancillary Procedure [facility] [address] [facility] [address] [place] [address] from Last 3 Months Social History Tobacco [...] Description 12/19/2025 9:30 AM EST Ancillary Procedure [facility] [address] [facility] [address] [place] [address] Health Maintenance Due Date Last Done Comments [...] this topic Medical Devices Implanted Type Area Drama Therapist Device Identifier Shelf Expiration Date Model / Serial / Lot Abbt-Dameon Kirby Vr 1411-36c [id number] Implanted:03/19 (Quantity not on file) Cardiac ICD [facility] [employer] ELLIPSE VR 1411-36C / [id number] / Abbt-Stju 1411-36c Ellipse(Tm) Vr [id number] Implanted:03/19 (Quantity not on file) Cardiac ICD [facility] [employer] 1411-36C ELLIPSE(TM) VR / [id number] / Procedures Procedure Name Priority Date/Time Associated Diagnosis Comments CARDIAC DEVICE CHECK- REMOTE- MURJ Routine 03/21/2025 8:57 AM EDT ANNUAL BMP BLOOD TEST Routine 05/11/2024 from Last 3 Months or Most Recently Relevant to Health Maintenance Results * Cardiac device check - Remote- MURJ (03/21/2025 8:57 AM EDT) Date Time Interrogation Session [id number] CV DEVICE CHECK Type Interrogation Session Remote Scheduled CV DEVICE CHECK Implantable Pulse Generator Drama Therapist St.Jennifer CV DEVICE CHECK Implantable Pulse Generator Type ICD CV DEVICE CHECK Implantable Pulse Generator Model 1411-36C Ellipse(TM) VR CV DEVICE CHECK Implantable Pulse Generator Serial Number [id number] CV DEVICE CHECK Implantable Pulse Generator Implant Date [id number] CV DEVICE CHECK Battery Remaining Percentage 40.00 CV DEVICE CHECK Battery Remaining Longevity 42.0 CV DEVICE CHECK Battery Voltage 2.890 CV D EVICE CHECK Battery MEDICAL ASSISTANT SUPERVISOR Trigger 2.590 CV DEVICE CHECK Battery Status [...] * Annual BMP Blood Test (05/11/2024) Annual [facility] Blood Test Abstracted Historical Provider HEALTH MAINTENANCE Final Result from Last 3 Months or Most Recently Relevant to Health Maintenance Insurance MEDICARE [facility] Care Teams Program Therapist Relationship Specialty Start Date End Date Dede Perkins MD [address] [facility] [place] [address] PCP - General 10/04/12
--- OUTSIDE RECORDS SUMMARY | 2025-06-12 11:57 | XMS_ITS | Patient Health Record ---
Author Organization [employer] [facility] Address [address] [address] Care Team Providers Care President [employer] Name Role Phone ELIANA VELEZ MD Primary Care Provider Samantha Stuart Unavailable [phone] Allergies Allergen (clinical drug ingredient) Drug/Non Drug Allergy documented on EMR Reaction Allergy Type Onset Date Status Chloramphenicol Hives Drug Allergy A ctive Chloramphenicol rash Drug Allergy A ctive simvastatin Simvastatin rash Drug Allergy Act js Latex Unknown Drug Allergy Active Substance with 3-lbeqyme-8-methylgl utaryl-coenzyme A reductase inhibitor mechanism of action [...] Status Risk Notes Problem Postmenopausal atrophic vaginitis (26876838) Postmenopausal atrophic vaginitis (N95.2) Active confirmed Problem Postmenopausal bleeding (68784392) Postmenopausal bleeding (N95.0) Active confirmed Problem Essential hypertension (88477929) Essential (primary) hypertension (I10) Active confirmed Problem Disorder due to type 2 diabetes mellitus (236452198) Type 2 diabetes mellitus with unspecified complications (E11.8) Active confirmed Problem Asthma (840959160) Other asthma (J45.998) Active confirmed Problem Cystocele (414555261) Cystocele, unspecified (N81.10) Active confirmed Problem SI - Stress incontinence (88060018) Stress incontinence (female) (male) (N39.3) Active confirmed [...] Coverage End Date MEDICARE [address] [facility] [place] [id number] MARITA SOLIS Self - patient is the insured [facility] [address] [place] [address] [phone] [id number] MARITA SOLIS Self - patient is the [...]
== END 2025-06-12 11:54 | disposition home or self-care (01) ==
LOC: HO.HMCC 10:44
PROVIDERS: PCP Internal Medicine; Visit Provider Internal Medicine
DX: I10 Essential (primary) hypertension (principal); E78.5 Hyperlipidemia, unspecified; E11.65 Type 2 diabetes mellitus with hyperglycemia; Z79.4 Long term (current) use of insulin; E03.9 Hypothyroidism, unspecified

== ENCOUNTER → 2025-06-12 10:42 | Outpatient (BNVA) | payer MEDICARE, OTHER, SELFPAY | PROVIDERS: PCP Internal Medicine; Visit Provider Internal Medicine | DX: I10 Essential (primary) hypertension (principal); E78.5 Hyperlipidemia, unspecified; E03.9 Hypothyroidism, unspecified; E11.65 Type 2 diabetes mellitus with hyperglycemia; Z79.4 Long term (current) use of insulin | CPT/HCPCS: 99212 ==

== ENCOUNTER 2025-07-20 10:11 | Outpatient (AMB) | payer MEDICARE, OTHER, SELFPAY ==
[2025-07-20 10:15] VITALS: BMI 33.1
--- NOTE | 2025-07-20 10:15 | A.OFFVIS_ITS ---
Vital Signs 07/20/25 10:15 Height 5 ft 5 in Weight 199 lb BMI 33.1 Intake Visit Reasons: OV- Right Knee OA - s/p Durolane 01/09/25 Intake Note: Luisito is a 70 year old female who presents today for a follow up of her Right Knee OA s/p Durolane injection that was administered on 01/09/25. Patient reports that she is doing well, she had mild relif with the gel injection. Allergies chloramphenicol Allergy (Unknown, Verified 06/12/25 11:20) rash pravastatin Allergy (Unknown, Verified 06/12/25 11:20) hives ciprofloxacin Adverse Reaction (Verified 06/12/25 11:20) burning sensation in ears zinc Adverse Reaction (Verified 06/12/25 11:20) hives latex Allergy (Unknown, Uncoded 06/12/25 11:20) rash HPI HPI OV- Right Knee OA - s/p Durolane 01/09/25: Details: Luisito is a 70 year old female who presents today for a follow up of her Right Knee OA s/p Durolane injection that was administered on 01/09/25. Patient reports that she is doing well she had mild relief with the gel injection. [facility] Medical History Cataract (lens) fragments in eye following cataract surgery, bilateral Nodule of apex of right lung Osteoarthritis of right knee Loss of voice Asthma, mild intermittent Eczema Shoulder pain, left Diabetes mellitus with hyperglycemia, with long-term current use of insulin Essential hypertension Dyslipidemia Acquired hypothyroidism Surgical History History of carpal tunnel release History of lumpectomy of left breast H/O tubal ligation H/O thyroidectomy Family History Sister Diabetes mellitus Coronary artery disease Dyslipidemia Social History Housing: House Alcohol intake: never Patient Tobacco Use Status: Never used Tobacco e-Cigarette/Vaping Use: Never Used Second Hand Smoke Exposure: No service: No Current occupational status: retired Cognitive needs: No Hearing needs: No Vision needs: Yes Physical Exam Vital Signs: BMI result Body Mass Index 33.1 Extrem Other: No gait antalgia. Mild nonspecific tenderness to palpation knee. No effusion. Assessment & Plan Assessment & Plan (1) Osteoarthritis of right knee: Code(s): M17.11 - Unilateral primary osteoarthritis, right knee Category: Medical Plan: 70-year-old woman status post Albina injection doing well. She may receive another Albina injection 3-6 months from now but I would not recommend doing that unless she is uncomfortable. She can follow up to see me in 6 months. Coding Level of Care Code Est Pt Level 3 (46656) Diagnoses Osteoarthritis of right knee M17.11
--- OUTSIDE RECORDS SUMMARY | 2025-07-20 11:36 | XMS_ITS | Patient Health Record ---
Author Organization [employer] Address [address] [address] Care Team Providers Care Bucket Operator Name Role Phone ELIANA VELEZ MD Primary Care Provider Samantha Stuart Unavailable [phone] Allergies Allergen (clinical drug ingredient) Drug/Non Drug Allergy documented on EMR Reaction Allergy Type Onset Date Status Chloramphenicol Hives Drug Allergy A ctive Chloramphenicol rash Drug Allergy A ctive simvastatin Simvastatin rash Drug Allergy Act js Latex Unknown Drug Allergy Active Substance with 6-sazpgth-6-methylgl utaryl-coenzyme A reductase inhibitor mechanism of action [...] Status Risk Notes Problem Postmenopausal atrophic vaginitis (95524374) Postmenopausal atrophic vaginitis (N95.2) Active confirmed Problem Postmenopausal bleeding (33322507) Postmenopausal bleeding (N95.0) Active confirmed Problem Essential hypertension (26106953) Essential (primary) hypertension (I10) Active confirmed Problem Disorder due to type 2 diabetes mellitus (167590001) Type 2 diabetes mellitus with unspecified complications (E11.8) Active confirmed Problem Asthma (092787209) Other asthma (J45.998) Active confirmed Problem Cystocele (587673101) Cystocele, unspecified (N81.10) Active confirmed Problem SI - Stress incontinence (16768282) Stress incontinence (female) (male) (N39.3) Active confirmed [...] Coverage End Date MEDICARE [address] [facility] [place] [id number] MARITA SOLIS Self - patient is the insured [facility] [address] [place] [address] [phone] [id number] MARITA SOLIS Self - patient is the [...]
--- OUTSIDE RECORDS SUMMARY | 2025-07-20 11:36 | XMS_ITS | Clinical Summary ---
Author Organization [address] [place] [address] [place] [phone] Phone Care Team Providers Care Homicide Squad Commanding Officer Name Role Phone Dede Perkins MD Primary Care Provider Allergies Active Allergy Reactions Criticality Noted Date Comments Chloramphenicol 04/16/2021 Latex 04/16/2021 Lisinopril 04/16/2021 Nitroglycerin 04/16/2021 Pravastatin 04/16/2021 Medications albuterol HFA (PROAIR HFA ; PROVENTIL HFA ; VENTOLIN HFA) 90 mcg/actuation inhaler Inhale 2 Puffs into the lungs every 4 hours as needed. Active aspirin 81 mg EC tablet Take 81 mg by mouth daily. 9 Active budesonide-for moteroL (SYMBICORT) 160-4.5 mcg/actuation inhaler Inhale 2 Puffs into the lungs 2 times daily. Active cholecalcifero l, vitamin D3, (cholecalcifer ol, vit D3,,bulk,) 100,000 unit/gram powder 1 tablet Orally Once a day Active empagliflozin (Jardiance) 25 mg tablet Take 25 mg by mouth daily. 9 Active insulin glargine (Lantus U-100 Insulin) 100 unit/mL injection 50 Units at bedtime. Active insulin lispro 100 unit/mL injection Inject 20 Units under the skin 2 (two) times a day. Active levothyroxine (SYNTHROID, LEVOTHROID) 88 mcg tablet [...] daily. Active sotaloL (BETAPACE) 120 mg tablet Take 1 tablet (120 mg total) by mouth 2 (two) times a day. 180 tablet 3 5 026 Active amLODIPine (NORVASC) 5 mg tablet TAKE ONE TABLET BY MOUTH ONCE DAILY 90 tablet 5 Active spironolactone (ALDACTONE) 25 mg tablet TAKE ONE TABLET BY MOUTH ONCE DAILY 90 tablet 2 5 Active sotaloL (BETAPACE) 120 mg tablet TAKE ONE TABLET BY MOUTH TWICE DAILY 180 tablet 5 025 Discontinued(Re order) spironolactone (ALDACTONE) 25 mg tablet TAKE ONE TABLET BY MOUTH ONCE DAILY 90 tablet 1 5 025 Discontinued amLODIPine (NORVASC) 5 mg tablet TAKE ONE TABLET BY MOUTH ONCE DAILY 90 tablet 5 025 Discontinued Active Problems Problem Noted Date Diagnosed [...] Encounters Date Type Department Care Team Description 07/11/2025 9:40 AM EDT Office Visit [facility] [address] [facility] [address] [place] [address] Gardenia Hitchcock NP Hypertension, unspecified type (Primary Dx) 06/26/2025 10:00 AM EDT Ancillary Procedure [facility] [address] [facility] [address] [place] [address] from Last 3 Months Social History Tobacco [...] Sign Reading Time Taken Comments Blood Pressure 110/70 07/11/2025 9:36 AM EDT Pulse 76 07/11/2025 9:36 AM EDT Temperature - - Respiratory Rate - - Oxygen Saturation 95% 07/11/2025 9:36 AM EDT Inhaled Oxygen Concentration - - Weight 89.8 kg (198 lb) 07/11/2025 9:36 AM EDT Height 154.9 cm (5' 1 ) 07/11/2025 9:36 AM EDT Body Mass Index 37.41 07/11/2025 9:36 AM EDT Plan of Treatment Upcoming Encounters Date Type Department Care Team (Late st Contact Info) Description 12/19/2025 9:30 AM EST Ancillary Procedure [facility] [address] [facility] [address] [place] [address] Health Maintenance Due Date Last Done Comments Breast Cancer Screening 1955 Colorectal Cancer Screening: Colonoscopy 1957 Diabetes: Annual Foot Exam 1967 Diabetes: Annual Retina Eye Exam 1967 Pneumococcal Vaccine: 50+ Years (2 of 2 - PCV) 01/02/2017 01/03/2016 Cholesterol Screening (Lipid Panel) 09/27/2022 Falls Risk Assessment 09/27/2022 Hepatitis C Screening 09/27/2022 Medicare Annual Wellness Visit 09/27/2022 Osteoporosis Screening (Bone Density Screening) 09/27/2022 Social Influencers of Health Screening 09/27/2022 Depression Screening 10/19/2024 Diabetes: Annual Urine Albumin-Creatinine Ratio (uACR) 03/21/2025 Diabetes: Blood Sugar Control Test (HGBA1C) 03/21/2025 Diabetes: Annual GFR (Glomerular Filtration Rate) 05/11/2025 05/11/2024, 05/11/2024 Hypertension/CHF/CAD Annual BMP Blood Test 05/11/2025 05/11/2024, 05/11/2024 COVID-19 Vaccine ( season) 2025 05/12/2022, 10/25/2021, 04/22/2021, Additional history exists DTaP,Tdap,and Td Vaccines (2 - Td or Tdap) 01/02/2026 01/03/2016 Zoster Vaccines Completed 07/21/2023, 05/12/2023 RSV Immunization Adult Patients Completed 10/15/2023 Influenza Vaccine Completed 06/08/2025, , 07/31/2022, Additional history exists HIB Vaccines Aged Out No longer eligi [...] this topic Medical Devices Implanted Type Area Photovoltaic Power Systems Engineer Device Identifier Shelf Expiration Date Model / Serial / Lot Abbt-Stju Ellipse Vr 1411-36c [id number] Implanted:03/19 (Quantity not on file) Cardiac ICD [facility] [employer] ELLIPSE VR 1411-36C / [id number] / Abbt-Stju 1411-36c Ellipse(Tm) Vr [id number] Implanted:03/19 (Quantity not on file) Cardiac ICD [facility] [employer] 1411-36C ELLIPSE(TM) VR / [id number] / Procedures Procedure Name Priority Date/Time Associated Diagnosis Comments ECG 12-LEAD Routine 07/11/2025 10:12 AM EDT Hypertension, unspecified type CARDIAC DEVICE CHECK- REMOTE- MURJ Routine 06/26/2025 9:59 AM EDT ANNUAL BMP BLOOD TEST Routine 05/11/2024 from Last 3 Months or Most Recently Relevant to Health Maintenance Results * ECG 12 lead (07/11/2025 10:12 AM EDT) Ventricular Rate ECG 76 BPM GEMUSE Atrial Rate 76 BPM GEMUSE P-R Interval 186 ms GEMUSE QRS Duration 118 ms GEMUSE Q-T Interval 398 ms GEMUSE QTc 447 ms GEMUSE P Wave [place] 51 degrees GEMUSE R Leck[place] -57 degrees GEMUSE T [place]ck[place] 73 degrees GEMUSE ECG Interpretation Normal sinus rhythm Left axis deviation Left ventricular hypertrophy with QRS widening Abnormal ECG No previous ECGs available Confirmed by Perri CONNORS JOHN ([id number]) on 07/13/2025 1:45:07 PM GEMUSE 07/11/2025 9:48 AM EDT 07/13/2025 1:45 PM EDT us Gardenia Hitchcock NP ECG ORDERABLES Edited Resul t - Final GEMUSE * Cardiac device check - Remote- MURJ (06/26/2025 9:59 AM EDT) Date Time Interrogation Session [id number] CV DEVICE CHECK Type Interrogation Session Remote Scheduled CV DEVICE CHECK Implantable Pulse Generator [employer]ovoltaic Power Systems Engineer [employer] CV DEVICE CHECK Implantable Pulse Generator Type ICD CV DEVICE CHECK Implantable Pulse Generator Model 1411-36C Ellipse(TM) VR CV DEVICE CHECK Implantable Pulse Generator Serial Number [id number] CV DEVICE CHECK Implantable Pulse Generator Implant Date [id number] CV DEVICE CHECK Battery Remaining Percentage 38.00 CV DEVICE CHECK Battery Remaining Longevity 40.0 CV DEVICE CHECK Battery Voltage 2.890 CV D EVICE CHECK Battery GLOBAL PROGRAM MANAGER Trigger 2.590 CV DEVICE CHECK Battery Status Middle of Service CV DEVICE CHECK Capacitor Charge Time 7.800 CV DEVICE CHECK Doug Statistic RV Percent Paced 1.00 CV DEVICE CHECK Lead Channel Sensing Intrinsic Amplitude 5.100 CV DEVICE CHECK Lead Channel Setting Sensing Sensitivity 0.50 CV DEVICE CHECK Lead Channel Impedance Value 1,125 CV DEVICE CHECK Lead Channel Setting Pacing [...] 0 CV DEVICE CHECK Shock Measured Impedance 56 CV DEVICE CHECK Zone Setting Type Category VT CV DEVICE CHECK Rate 150 CV DEVICE CHECK Zone Setting Status On CV DEVICE CHECK Zone ID 1 CV DEVICE CHECK Zone Setting Type Category VT CV DEVICE CHECK Rate 176 CV DEVICE CHECK Therapies 3 x Burst+Scan,15.0J,3 0.0J,36.0J x 2 CV DEVICE CHECK Zone Setting Status On CV DEVICE CHECK Zone ID 2 CV DEVICE CHECK Zone Setting Type Category VF CV DEVICE CHECK Rate 207 CV DEVICE CHECK Therapies 25.0J,30.0J,36.0J x 4 CV DEVICE CHECK Zone Setting Status On CV DEVICE CHECK Zone ID 3 CV DEVICE CHECK Date of Service 2025 CV DEVICE CHECK Anatomical Region Laterality Modality Device Interroga tion 06/18/2025 4:00 AM EDT Impressions 06/26/2025 9:46 AM EDT Normal Remote: No Events * Normal Device Function * Alerts or events: None * Battery: Battery is at 38%, 3.33 yrs * Sensing, impedance and thresholds reviewed * Programmed parameters reviewed * Presenting rhythm reviewed * Heart Rate Histograms reviewed * No significant changes noted Heart Failure Diagnostic: Stable * Heart failure diagnostics assessed through the device * Status: Stable * No overt HF present Narrative Procedure Note Daniel Connors MD - 06/26/2025 IMPRESSION: Normal Remote: No Events * Normal Device Function * Alerts or events: None * Battery: Battery is at 38%, 3.33 yrs * Sensing, impedance and thresholds reviewed [...] Recently Relevant to Health Maintenance Insurance [facility]ICARE [facility] Care Teams Homicide Squad Commanding Officer Relationship Specialty Start Date End Date Dede Perkins MD [address] [place] [address] PCP - General 10/04/12
== END 2025-07-20 10:43 | disposition home or self-care (01) ==
LOC: HO.HOS 10:12
PROVIDERS: PCP Internal Medicine; Visit Provider Orthopaedic Surgery
DX: M17.11 Unilateral primary osteoarthritis, right knee (principal)
CPT/HCPCS: 99213

== ENCOUNTER → 2025-07-20 10:11 | Outpatient (BNVA) | payer MEDICARE, OTHER, SELFPAY | PROVIDERS: PCP Internal Medicine; Visit Provider Orthopaedic Surgery | DX: M17.11 Unilateral primary osteoarthritis, right knee (principal) | CPT/HCPCS: 99212 ==

== ENCOUNTER 2025-07-27 10:05 | Outpatient (AMB) | payer MEDICARE, OTHER, SELFPAY ==
--- NOTE | 2025-07-27 10:12 | MHC.OFFVIS ---
Intake Visit Reasons: Inj- Right Knee Durolane Intake Note: Victoria is a 70 year old female who presents today for a Right Knee Durolane injection Allergies chloramphenicol Allergy (Unknown, Verified 06/12/25 11:20) rash pravastatin Allergy (Unknown, Verified 06/12/25 11:20) hives ciprofloxacin Adverse Reaction (Verified 06/12/25 11:20) burning sensation in ears zinc Adverse Reaction (Verified 06/12/25 11:20) hives latex Allergy (Unknown, Uncoded 06/12/25 11:20) rash HPI HPI Inj- Right Knee Durolane: Details: Victoria is a 70 year old female who presents today for a Right Knee Durolane injection PFS Medical History Cataract (lens) fragments in eye following cataract surgery, bilateral Nodule of apex of right lung Osteoarthritis of right knee Loss of voice Asthma, mild intermittent Eczema Shoulder pain, left Diabetes mellitus with hyperglycemia, with long-term current use of insulin Essential hypertension Dyslipidemia Acquired hypothyroidism Surgical History History of carpal tunnel release History of lumpectomy of left breast H/O tubal ligation H/O thyroidectomy Family History Sister Diabetes mellitus Coronary artery disease Dyslipidemia Social History Housing: House Alcohol intake: never Patient Tobacco Use Status: Never used Tobacco e-Cigarette/Vaping Use: Never Used Second Hand Smoke Exposure: No service: No Current occupational status: retired Cognitive needs: No Hearing needs: No Vision needs: Yes Physical Exam Exam Exam: nad skin c/d/i Office Procedures Joint Inj/Aspir; Non-Pain Clin Joint Injection/Drain Details: Injected Durolane. Site was prepped using aseptic technique. Patient tolerated the procedure well. Shoulders, Hips, Knees, Knee Large Joint Injection [id number]: Right Knee Coding Procedure code (CPT) selection complete Assessment & Plan Assessment & Plan (1) Osteoarthritis of right knee: Code(s): M17.11 - Unilateral primary osteoarthritis, right knee Category: Medical Plan: Durolane injection right knee Coding Level of Care Code Est Pt Level 2 (85190) Diagnoses Osteoarthritis of right knee M17.11 CPT Codes Shoulders, Hips, Knees, - Knee Large Joint Injection : Right Knee ([id number])
== END 2025-07-27 11:05 | disposition home or self-care (01) ==
LOC: HO.HOS 10:06
PROVIDERS: PCP Internal Medicine; Visit Provider Orthopaedic Surgery
DX: M17.11 Unilateral primary osteoarthritis, right knee (principal)
CPT/HCPCS: 20610

== ENCOUNTER → 2025-07-27 10:05 | Outpatient (BNVA) | payer MEDICARE, OTHER, SELFPAY | PROVIDERS: PCP Internal Medicine; Visit Provider Orthopaedic Surgery | DX: M17.11 Unilateral primary osteoarthritis, right knee (principal) | CPT/HCPCS: 20610; J7318 ==